=== PATIENT | female | born 1935 | race Caucasian/White ===

== ENCOUNTER → 2018-04-01 09:17 | Outpatient (CLI) | payer MEDICARE, OTHER, SELFPAY ==
[2018-04-01 09:43] LABS: RBC Urine None Seen (0-5/HPF)
[2018-04-01 10:25] LABS: Appearance Urine UA CLEAR; Bilirubin Urine UA NEGATIVE (NEGATIVE); Color Urine UA YELLOW; Glucose Urine UA NEGATIVE (Normal); Ketones Urine UA 1+ (NEGATIVE); Leukocyte Esterase Urine UA NEGATIVE (NEGATIVE); Nitrite Urine UA NEGATIVE (Negative); Occult Blood Urine UA NEGATIVE (Negative); Protein Urine UA NEGATIVE (Negative); Specific Gravity Urine UA 1.025 (1.000-1.035); Urobilinogen Urine UA 0.2 E.U./dL (0.2)
[2018-04-01 10:43] LABS: Hematocrit 41.6 % (36-46); Hemoglobin 13.7 g/dL (12.0-16.0); Mean Corpuscular HGB Conc 32.9 % (30-36); Mean Corpuscular Hemoglobin 29.9 PG (26-34); Platelet Count 266 X10^3/uL (150-400); Red Blood Cell Count 4.57 X10^6/uL (4.0-5.2); Red Cell Distribution Width 13.4 % (11.6-14.8); White Blood Cell Count 6.3 X10^3/uL (4.5-11.0)
[2018-04-01 11:23] LABS: Bacteria Urine Occasional (0-1); Culture Indicated Urine Cult Not Indicated; Mucus Urine 1+ (Negative); Squamous Epithelial Cell Urine 0-1 /HPF; WBC Urine 0-1/HPF (0-5/HPF)
[2018-04-01 11:48] LABS: Alanine Aminotransferase 25 IU/L (9-52); Albumin 4.2 g/dL (3.5-5.0); Albumin Globulin Ratio 1.4 (1.0-2.8); Alkaline Phosphatase 62 U/L (38-126); Aspartate Aminotransferase 20 IU/L (14-36); BUN Creatinine Ratio 24.3 (6-22); Bilirubin Total 0.6 mg/dL (0.2-1.3); Blood Urea Nitrogen 17 mg/dL (7-17); Calcium 9.6 mg/dL (8.4-10.2); Carbon Dioxide 27 mmol/L (22-32); Chloride 104 mmol/L (98-107); Cholesterol 208 mg/dL (140-199); Estimated Glomerular Filt Rate > 60.0 mL/min (>60); Glucose 92 mg/dL (80-110); HDL Cholesterol 53 mg/dL (40-60); HEMOLYSIS < 15 (0-50); LDL Cholesterol Calculated 141 mg/dL (<100); Potassium 4.6 mmol/L (3.4-5.1); Sodium 143 mmol/L (137-145); Total Protein 7.2 g/dL (6.3-8.2); Triglycerides 72 mg/dL (35-150)
[2018-04-01 11:51] LABS: Neutrophils Absolute Manual 4410 /uL (3000-5900); Total Cells Counted 100
[2018-04-01 11:52] LABS: Anisocytosis 1+; Poikilocytosis 1+
[2018-04-01 12:02] LABS: Vitamin D 25 Hydroxy (D3) 45.7 ng/mL (30.0-100.0)
[2018-04-01 12:17] LABS: Thyroid Stimulating Hormone 1.23 uIU/mL (0.47-4.68)
== END ==
PROVIDERS: PCP Family Medicine; Visit Provider Family Medicine
DX: Z13.0 Encounter for screening for diseases of the blood and blood-forming organs and certain disorders involving the immune mechanism (principal); Z13.220 Encounter for screening for lipoid disorders; Z13.29 Encounter for screening for other suspected endocrine disorder; Z13.820 Encounter for screening for osteoporosis; R30.0 Dysuria
CPT/HCPCS: 36415; 80053; 80061; 81001; 82306; 84443; 85025

== ENCOUNTER 2018-05-28 11:37 | Emergency (ER) | payer MEDICARE, OTHER, SELFPAY ==
[2018-05-28 11:38] VITALS: BP 130/72; PULSE 80; RESP 16; TEMP 36.7; O2SAT 98
--- NOTE | 2018-05-28 12:52 | ED.EXTPRO ---
HPI - Extremity Problem <REZA Deal-BC - Last Filed: 05/28/18 14:04> General Chief complaint: Extremity Problem,Nontraumatic Stated complaint: UNABLE TO WALK ON LEFT FOOT SWELLING VARICOSE VEIN Time Seen by Provider: 05/28/18 12:45 Source: patient and family Mode of arrival: wheelchair Limitations: no limitations History of Present Illness HPI Narrative: Patient is an 82-year-old female nonsmoker with history of varicose veins who presents from the walk-in clinic for chief complaint of left lower extremity swelling and pain. She was sent to the emergency department to help rule out a DVT. She states that swelling and pain started about 5 days ago. She states she know she has varicose veins on her bilateral feet. She took 1 Aleve yesterday which helped with the pain for 6 hr. She has not taken anything since. This is the only pain medication she has taken over the 5 days of pain she has had. She denies any numbness or tingling. She denies any injury to the area or fall. She denies any chest pain, shortness of breath, fever or any other acute complaints today. She states she just wants to rule out a blood clot. Related Data Home Medications Medication Instructions Recorded Confirmed No Known Home Medications 04/09/18 05/28/18 Allergies Allergy/AdvReac Type Severity Reaction Status Date / Time No Known Allergies Allergy Uncoded 04/09/18 13:36 Review of Systems <REZA Deal-BC - Last Filed: 05/28/18 14:04> Review of Systems GENERAL: Denies chills, fatigue, malaise, fever, sweats. HEENT: Denies sinus pain, ear pain, sore throat, difficulty swallowing, dizziness. RESPIRATORY: Denies dyspnea, cough, wheezing, hemoptysis, sputum. CARDIOVASCULAR: Denies chest pain, palpitations, orthopnea, edema, GASTROINTESTINAL: Denies nausea, vomiting, abdominal pain, diarrhea, constipation, melena. : Denies dysuria, frequency, incontinence, hematuria, urinary retention. MUSCULOSKELETAL: See HPI SKIN: Denies rash, skin lesions, or other NEUROLOGIC: Denies weakness, headache, numbness, change in speech, confusion, seizures, incoordination. PSYCHIATRIC: No concerning psychosocial issues. 12 point review of systems is negative except for those stated above Exam <MILTON Deal - Last Filed: 05/28/18 14:04> Narrative Exam Narrative: GENERAL: This is a well-nourished, well-developed patient, in no acute distress HEAD: Atraumatic. Normocephalic. No temporal or scalp tenderness. EYES: Pupils equal round and reactive. Extraocular motions intact. No scleral icterus. No injection or drainage. ENT: Nose without bleeding, purulent drainage or septal hematoma. Throat without erythema, tonsillar hypertrophy or exudate. Uvula midline. Airway patent. NECK: Trachea midline. No JVD or lymphadenopathy. Supple, nontender, no meningeal signs. CARDIOVASCULAR: Regular rate and rhythm without murmurs, gallops, or rubs. RESPIRATORY: No cough. No increased GASTROINTESTINAL: Abdomen soft, non-tender, nondistended. No hepato-splenomegaly, or palpable masses. No guarding. EXTREMITIES: Slight swelling noted left foot when compared to right. Positive pedal pulse left foot multiple varicose veins noted bilaterally. Left calf soft to palpation. Negative Homans test. BACK: Nontender without deformity or crepitance. No flank tenderness. NEURO: AOx3. SKIN: No rash or erythema. Initial Vital Signs Initial Vital Signs: Vital Signs Temperature 98.1 F 05/28/18 11:38 Pulse Rate 80 05/28/18 11:38 Respiratory Rate 16 05/28/18 11:38 Blood Pressure 130/72 05/28/18 11:38 Pulse Oximetry 98 05/28/18 11:38 <Uzma Ramos DO - Last Filed: 05/29/18 09:47> Initial Vital Signs Initial Vital Signs: Vital Signs Temperature 98.1 F 05/28/18 11:38 Pulse Rate 80 05/28/18 11:38 Respiratory Rate 16 05/28/18 11:38 Blood Pressure 130/72 05/28/18 11:38 Pulse Oximetry 98 05/28/18 11:38 Course <MILTON Deal - Last Filed: 05/28/18 14:04> Orders Ordered: ED Orders 05/28/18 12:51 US periph venous low extrem lt Stat Vital Signs - 8 hr 05/28/18 11:38 Temperature 98.1 F Pulse Rate 80 Respiratory Rate 16 Blood Pressure 130/72 Pulse Oximetry 98 <DO Roque Seo Last Filed: 05/29/18 09:47> Orders Ordered: ED Orders 05/28/18 12:51 US periph venous low extrem lt Stat Vital Signs - 8 hr 05/28/18 11:38 Temperature 98.1 F Pulse Rate 80 Respiratory Rate 16 Blood Pressure 130/72 Pulse Oximetry 98 MDM - Extremity (Nontraumatic) <MILTON Deal - Last Filed: 05/28/18 14:04> Imaging Data Venous US: Radiologist's impression: [place] [id number] Ultrasound Report Signed Patient: Khris Joseph#: [id number] : 8Acct:[id number] Age/Sex: 82 / FDate of Service: 05/28/18 Loc: ED Accession Number: [id number] Procedure: US periph venous low extrem lt Ordering Provider: Waleska Cole PROCEDURE: US PERIPH VENOUS LOW EXTREM LT INDICATIONS: Left ankle pain and swelling. TECHNIQUE: Real-time imaging, as well as color and pulse Doppler interrogation, were performed of the lower extremity deep veins from the inguinal ligament to the popliteal fossa. COMPARISON: None. FINDINGS: The deep veins are normally compressible, and free of intraluminal thrombus. Color and pulse Doppler demonstrate intraluminal flow. There is normal augmentation response to distal compression maneuver. IMPRESSION: No ultrasound evidence of deep venous thrombosis of the left lower extremity. Preliminary findings were discussed by the director of pulmonary unit with the referring provider REZA Cole at approximately 1340 hrs. on 05/28/18. Dictated by: Craig Lund M.D. on 05/28/2018 at 13:44 Approved by: Craig Lund M.D. on 05/28/2018 at 13:47 [facility] Narrative Medical decision making narrative: Patient is an 82-year-old female who presents with a chief complaint of left lower extremity swelling. She was sent from walk-in clinic for an ultrasound to rule out a blood clot. Her DVT ultrasound was negative. I discussed at length conservative measures including rest ice compression elevation as well as [id number]-[id number] pain medications as needed and able. I encouraged her to follow up with primary care provider. Discussed return precautions the emergency department including shortness of breath, chest pain concern of heart attack or stroke. Patient no questions or concerns upon discharge. Discharge Plan Departure Patient Disposition: Home Clinical Impression: Foot pain Discharge Date/Time: 05/28/18 14:14 Interventions: ED Discharge Assessment Last Done: 05/28/18 14:15 Instructions: How To Perform RICE (Rest, Ice, Compress, Elevate), DI for Foot Pain Activity Restrictions/Additional Instructions: Your ultrasound showed no blood clot in her left lower extremity please use [id number] medications as needed and able. Please use rest ice compression elevation as needed and able cleared please follow-up with her primary care provider. Please come back to the emergency department for any acute concerns such as chest pain, shortness of breath or concern of heart attack or stroke. Prescriptions: No Action No Known Home Medications RF: 0 Referrals: Palak Naik MD [Primary Care Provider] - <Uzma Ramos DO - Last Filed: 05/29/18 09:47> Cosign ED Attending Alicia Attestation: I was immediately available in the department for consultation. Documentation has been reviewed. I agree with assessment and plan.
--- NOTE | 2018-05-28 12:56 | ED_ITS ---
HPI - Extremity Problem <REZA Deal-BC - Last Filed: 05/28/18 14:04> General Chief complaint: Extremity Problem,Nontraumatic Stated complaint: UNABLE TO WALK ON LEFT FOOT SWELLING VARICOSE VEIN Time Seen by Provider: 05/28/18 12:45 Source: patient and family Mode of arrival: wheelchair Limitations: no limitations History of Present Illness HPI Narrative: Patient is an 82-year-old female nonsmoker with history of varicose veins who presents from the walk-in clinic for chief complaint of left lower extremity swelling and pain. She was sent to the emergency department to help rule out a DVT. She states that swelling and pain started about 5 days ago. She states she know she has varicose veins on her bilateral feet. She took 1 Aleve yesterday which helped with the pain for 6 hr. She has not taken anything since. This is the only pain medication she has taken over the 5 days of pain she has had. She denies any numbness or tingling. She denies any injury to the area or fall. She denies any chest pain, shortness of breath, fever or any other acute complaints today. She states she just wants to rule out a blood clot. Related Data Home Medications Medication Instructions Recorded Confirmed No Known Home Medications 04/09/18 05/28/18 Allergies Allergy/AdvReac Type Severity Reaction Status Date / Time No Known Allergies Allergy Uncoded 04/09/18 13:36 Review of Systems <REZA Deal-BC - Last Filed: 05/28/18 14:04> Review of Systems GENERAL: Denies chills, fatigue, malaise, fever, sweats. HEENT: Denies sinus pain, ear pain, sore throat, difficulty swallowing, dizziness. RESPIRATORY: Denies dyspnea, cough, wheezing, hemoptysis, sputum. CARDIOVASCULAR: Denies chest pain, palpitations, orthopnea, edema, GASTROINTESTINAL: Denies nausea, vomiting, abdominal pain, diarrhea, constipation, melena. : Denies dysuria, frequency, incontinence, hematuria, urinary retention. MUSCULOSKELETAL: See HPI SKIN: Denies rash, skin lesions, or other NEUROLOGIC: Denies weakness, headache, numbness, change in speech, confusion, seizures, incoordination. PSYCHIATRIC: No concerning psychosocial issues. 12 point review of systems is negative except for those stated above Exam <MILTON Deal - Last Filed: 05/28/18 14:04> Narrative Exam Narrative: GENERAL: This is a well-nourished, well-developed patient, in no acute distress HEAD: Atraumatic. Normocephalic. No temporal or scalp tenderness. EYES: Pupils equal round and reactive. Extraocular motions intact. No scleral icterus. No injection or drainage. ENT: Nose without bleeding, purulent drainage or septal hematoma. Throat without erythema, tonsillar hypertrophy or exudate. Uvula midline. Airway patent. NECK: Trachea midline. No JVD or lymphadenopathy. Supple, nontender, no meningeal signs. CARDIOVASCULAR: Regular rate and rhythm without murmurs, gallops, or rubs. RESPIRATORY: No cough. No increased GASTROINTESTINAL: Abdomen soft, non-tender, nondistended. No hepato-splenomegaly , or palpable masses. No guarding. EXTREMITIES: Slight swelling noted left foot when compared to right. Positive pedal pulse left foot multiple varicose veins noted bilaterally. Left calf soft to palpation. Negative Homans test. BACK: Nontender without deformity or crepitance. No flank tenderness. NEURO: AOx3. SKIN: No rash or erythema. Initial Vital Signs Initial Vital Signs: Vital Signs Temperature 98.1 F 05/28/18 11:38 Pulse Rate 80 05/28/18 11:38 Respiratory Rate 16 05/28/18 11:38 Blood Pressure 130/72 05/28/18 11:38 Pulse Oximetry 98 05/28/18 11:38 <Uzma Ramos DO - Last Filed: 05/29/18 09:47> Initial Vital Signs Initial Vital Signs: Vital Signs Temperature 98.1 F 05/28/18 11:38 Pulse Rate 80 05/28/18 11:38 Respiratory Rate 16 05/28/18 11:38 Blood Pressure 130/72 05/28/18 11:38 Pulse Oximetry 98 05/28/18 11:38 Course <MILTON Deal - Last Filed: 05/28/18 14:04> Orders Ordered: ED Orders 05/28/18 12:51 US periph venous low extrem lt Stat Vital Signs - 8 hr 05/28/18 11:38 Temperature 98.1 F Pulse Rate 80 Respiratory Rate 16 Blood Pressure 130/72 Pulse Oximetry 98 <DO Roque Seo Last Filed: 05/29/18 09:47> Orders Ordered: ED Orders 05/28/18 12:51 US periph venous low extrem lt Stat Vital Signs - 8 hr 05/28/18 11:38 Temperature 98.1 F Pulse Rate 80 Respiratory Rate 16 Blood Pressure 130/72 Pulse Oximetry 98 MDM - Extremity (Nontraumatic) <MILTON Deal - Last Filed: 05/28/18 14:04> Imaging Data Venous US: Radiologist's impression: [place] [id number] Ultrasound Report Signed Patient: Khris Joseph#: [id number] : 8Acct:[id number] Age/Sex: 82 / FDate of Service: 05/28/18 Loc: ED Accession Number: [id number] Procedure: US periph venous low extrem lt Ordering Provider: Waleska Cole PROCEDURE: US PERIPH VENOUS LOW EXTREM LT INDICATIONS: Left ankle pain and swelling. TECHNIQUE: Real-time imaging, as well as color and pulse Doppler interrogation, were performed of the lower extremity deep veins from the inguinal ligament to the popliteal fossa. COMPARISON: None. FINDINGS: The deep veins are normally compressible, and free of intraluminal thrombus. Color and pulse Doppler demonstrate intraluminal flow. There is normal augmentation response to distal compression maneuver. IMPRESSION: No ultrasound evidence of deep venous thrombosis of the left lower extremity. Preliminary findings were discussed by the staff nurse icu resource team with the referring provider REZA Cole at approximately 1340 hrs. on 05/28/18. Dictated by: Craig Lund M.D. on 05/28/2018 at 13:44 Approved by: Craig Lund M.D. on 05/28/2018 at 13:47 [facility] Narrative Medical decision making narrative: Patient is an 82-year-old female who presents with a chief complaint of left lower extremity swelling. She was sent from walk-in clinic for an ultrasound to rule out a blood clot. Her DVT ultrasound was negative. I discussed at length conservative measures including rest ice compression elevation as well as nbtu-kwq-epebosa pain medications as needed and able. I encouraged her to follow up with primary care provider. Discussed return precautions the emergency department including shortness of breath, chest pain concern of heart attack or stroke. Patient no questions or concerns upon discharge. Discharge Plan Departure Patient Disposition: Home Clinical Impression: Foot pain Discharge Date/Time: 05/28/18 14:14 Interventions: ED Discharge Assessment Last Done: 05/28/18 14:15 Instructions: How To Perform RICE (Rest, Ice, Compress, Elevate), DI for Foot Pain Activity Restrictions/Additional Instructions: Your ultrasound showed no blood clot in her left lower extremity please use over -the-counter medications as needed and able. Please use rest ice compression elevation as needed and able cleared please follow-up with her primary care provider. Please come back to the emergency department for any acute concerns such as chest pain, shortness of breath or concern of heart attack or stroke. Prescriptions: No Action No Known Home Medications RF: 0 Referrals: Palak Naik MD [Primary Care Provider] - <Uzma Ramos DO - Last Filed: 05/29/18 09:47> Cosign ED Attending Alicia Attestation: I was immediately available in the department for consultation. Documentation has been reviewed. I agree with assessment and plan.
[2018-05-28 14:15] VITALS: BP 130/69; PULSE 69; RESP 18; O2SAT 97
== END 2018-05-28 14:14 | disposition home or self-care (01) ==
PROVIDERS: Emergency Provider Nurse Practitioner Family; PCP Family Medicine
DX: M79.605 Pain in left leg (principal)
CPT/HCPCS: 93971; 99282; 99284

== ENCOUNTER → 2018-08-28 10:17 | Outpatient (CLI) | payer MEDICARE, OTHER, SELFPAY | PROVIDERS: PCP Family Medicine; Visit Provider Nurse Practitioner | DX: N90.89 Other specified noninflammatory disorders of vulva and perineum (principal) | CPT/HCPCS: 87070; 87147; 87186; 87205 ==

== ENCOUNTER → 2018-10-23 13:50 | Outpatient (CLI) | payer MEDICARE, OTHER, SELFPAY ==
--- NOTE | 2018-10-23 | DI.MG.S_ITS ---
BILATERAL DIGITAL SCREENING MAMMOGRAM 3D/2D WITH CAD: 10/23/2018 CLINICAL: Routine screening. Comparison is made to exams dated: 08/21/2017 mammogram - [facility], 01/19/2016 mammogram, and 12/31/2014 mammogram - [facility]. There are scattered fibroglandular elements in both breasts. Current study was also evaluated with a Computer Aided Detection (CAD) system. There is a high density asymmetry in the left breast middle depth superior region seen on the mediolateral oblique view only. No other significant masses, calcifications, or other findings are seen in either breast. IMPRESSION: INCOMPLETE: NEEDS ADDITIONAL IMAGING EVALUATION The high density asymmetry in the left breast is indeterminate. Additional views with possible ultrasound are recommended. This exam was interpreted at Station ID: [id number]. NOTE: For mammograms, a report in lay terms will be sent to the patient. Approximately 15% of breast malignancies will not be visualized mammographically. In the management of a palpable breast mass, a negative mammogram must not discourage biopsy of a clinically suspicious lesion. Electronically Signed By: Yue fong/king:10/23/2018 15:18:37 letter sent: Additional Imaging Needed ACR BI-RADS Category 0: Incomplete 3340F
== END ==
PROVIDERS: PCP Family Medicine; Visit Provider Family Medicine
DX: Z12.31 Encounter for screening mammogram for malignant neoplasm of breast (principal)
CPT/HCPCS: 77063; 77067

== ENCOUNTER → 2018-11-12 13:46 | Outpatient (CLI) | payer MEDICARE, OTHER, SELFPAY ==
--- NOTE | 2018-11-12 | DI.MG.S_ITS ---
UNILATERAL LEFT DIGITAL DIAGNOSTIC MAMMOGRAM 3D/2D WITH ADDITIONAL VIEWS: 11/12/2018 CLINICAL: Additional evaluation requested from prior study. Comparison is made to exams dated: 10/23/2018 mammogram, 08/21/2017 mammogram - [facility], and 01/19/2016 mammogram - [facility]. There are scattered fibroglandular elements in left breast. The benign high density asymmetry in the left breast middle depth superior region seen on the mediolateral oblique view only is no longer seen. This is consistent with summation artifact. No other significant masses or calcifications are seen in the breast. IMPRESSION: The previously described asymmetry disperses with additional views and is consistent with summation artifact. There is no mammographic evidence of malignancy. A 1 year screening mammogram is recommended. This exam was interpreted at Station ID: [id number]. NOTE: For mammograms, a report in lay terms will be sent to the patient. Approximately 15% of breast malignancies will not be visualized mammographically. In the management of a palpable breast mass, a negative mammogram must not discourage biopsy of a clinically suspicious lesion. Electronically Signed By: Curly Barrios M.D. at/:11/12/2018 14:58:47 letter sent: Normal Exam ACR BI-RADS Category 2: Benign Finding(s) 3342F
== END ==
PROVIDERS: PCP Family Medicine; Visit Provider Family Medicine
DX: R92.8 Other abnormal and inconclusive findings on diagnostic imaging of breast (principal)
CPT/HCPCS: 77065; G0279

== ENCOUNTER 2019-03-16 14:23 | Inpatient (IN) | payer MEDICARE, OTHER, SELFPAY ==
[2019-03-16] VITALS (19 sets, daily range): BP systolic 90–136; BP diastolic 48–88; PULSE 104–135; RESP 15–27; TEMP 36.6–37.4; O2SAT 92–99; BMI 18.6
--- NOTE | 2019-03-16 14:48 | DI.RAD.S_ITS ---
PROCEDURE: XR CHEST 1V INDICATIONS: soa TECHNIQUE: One view of the chest was acquired. COMPARISON: None. FINDINGS: Surgical changes and devices: None. Lungs and pleura: Blunting of left costophrenic angle is evident. There is hazy increased attenuation at the right lung base. No definite pneumothorax is appreciated. Interstitial prominence is identified throughout the lungs. There is no lobar or large area of pulmonary consolidation. Mediastinum: Mediastinal contours appear normal. Heart size is enlarged. There is aortic atherosclerosis. Bones and chest wall: No suspicious bony lesions. Overlying soft tissues appear unremarkable. IMPRESSION: 1. Cardiomegaly with moderate associated vascular congestion is suggestive of mild pulmonary edema. 2. Small bilateral pleural effusions and associated atelectasis. Please correlate clinically to exclude the possibility of a superimposed pneumonia. Dictated by: Adolfo Chapa M.D. on 03/16/2019 at 14:10 Approved by: Adolfo Chapa M.D. on 03/16/2019 at 14:11
[2019-03-16 15:13] LABS: Add Manual Diff / Slide Review NO; Basophils Absolute Auto 100 /uL (0-100); Basophils Percent Auto 0.7 % (0-2); Eosinophils Absolute Auto 200 /uL (0-450); Eosinophils Percent Auto 1.4 % (2-4); Hematocrit 41.3 % (36-46); Lymphocytes Absolute Auto 1700 /uL (1100-4500); Lymphocytes Percent Auto 14.8 % (25-40); Mean Corpuscular Hemoglobin 30.8 PG (26-34); Mean Corpuscular Volume 90.6 fL (80-100); Monocytes Absolute Auto 500 /uL (0-900); Monocytes Percent Auto 4.4 % (3-14); Neutrophils Absolute Auto 9000 /uL (1500-7000); Neutrophils Percent Auto 78.7 % (50-75); Platelet Count 293 X10^3/uL (150-400); Red Blood Cell Count 4.56 X10^6/uL (4.0-5.2); Red Cell Distribution Width 14.1 % (11.6-14.8); White Blood Cell Count 11.5 X10^3/uL (4.5-11.0)
[2019-03-16 15:24] LABS: Prothrombin Time 11.8 SECONDS (10.1-12.7)
--- NOTE | 2019-03-16 15:27 | ED.CHESTPAIN ---
HPI - Chest Pain General Chief Complaint: Chest Pain Stated Complaint: SOB , tightness in chest Time Seen by Provider: 03/16/19 14:38 Source: patient and family Mode of arrival: Ambulatory Limitations: no limitations History of Present Illness HPI narrative: 83-year-old female nonsmoker with benign medical history presents with a chief complaint of a few weeks of gradually worsening generalized fatigue and palpitations. She denies any chest pain and has had no fever or chills. She denies runny nose, sore throat or cough. She denies any history of atrial fibrillation. She denies any significant caffeine, nicotine or alcohol intake. MD complaint: chest pain Onset (ago): week(s) Duration: constant Pain radiation: none Exacerbating factors: nothing Associated symptoms: palpitations Treatments prior to arrival chest pain: none Related Data Previous Rx's Medication Instructions Recorded hydroxyzine HCl 10 mg tablet 10 mg PO BEDTIME PRN #10 tab 08/28/18 Allergies Allergy/AdvReac Type Severity Reaction Status Date / Time No Known Drug Allergies Allergy Verified 03/16/19 15:02 Review of Systems Constitutional Constitutional: Denies chills, Denies fatigue, Denies fever(s), Denies frequent falls, Denies lethargy and Denies weakness Eyes Eyes: Denies change in vision, Denies eye discharge, Denies irritation and Denies loss of vision ENT Ears, Nose, Mouth, and Throat: Denies change in voice, Denies dizziness, Denies neck pain, Denies sore throat and Denies throat swelling Cardiovascular Cardiovascular: Denies chest pain, Reports irregular heart rhythm, Reports lightheadedness, Reports palpitations, Reports dyspnea, Reports dyspnea on exertion and Denies orthopnea Respiratory Respiratory: Denies cough, Reports dyspnea, Reports dyspnea on exertion and Denies wheezing Gastrointestinal Gastrointestinal: Denies abdominal pain, Denies change in bowel habits, Denies diarrhea, Denies nausea and Denies vomiting Genitourinary Genitourinary: Denies hematuria, Denies flank pain, Denies urinary incontinence and Denies urinary urgency Musculoskeletal Musculoskeletal: Denies back pain, Denies muscle weakness, Denies neck pain, Denies numbness and Denies tingling Integumentary/Breasts Skin/Breast: Denies pruritus, Denies erythema, Denies rash and Denies wounds Neurologic Neurologic: Denies behavioral changes, Denies confusion, Denies dizziness, Denies frequent falls, Denies loss of vision, Denies numbness, Denies tingling and Denies weakness Psychiatric Psychiatric: Denies anxiety, Denies behavioral changes, Denies confusion, Denies depression, Denies homicidal ideation and Denies suicidal ideation Endocrine Endocrine: Denies fatigue, Denies flushing and Reports palpitations Hematologic/Lymphatic Hematologic/Lymphatic: Denies easy bruising Allergic/Immunologic Allergic/Immunologic: Denies urticaria, Denies throat swelling and Denies wheezing Patient History Medical History Ankle pain (Chronic) Colon polyps (Resolved) Diverticular disease (Chronic) Left retinal detachment (Resolved 1996) Osteopenia (Chronic 2004) Right retinal detachment (Resolved 2014) Shoulder pain (Chronic 2016) Urinary incontinence (Chronic) Surgical History Anesthesia (Resolved) History of colonoscopy with polypectomy (Resolved 07/05/17) History of colonoscopy with polypectomy (Resolved ) History of non-cataract eye surgery (Resolved 1996) History of non-cataract eye surgery (Resolved 2014) Status post rotator cuff repair (Resolved 2001) Family History Mother Cancer Multiple myeloma Father Silicosis Social History Smoking Status: Never smoker Substance Use Type: does not use Exam Narrative Exam Narrative: GENERAL: [] 83 year old patient appears younger than stated age. Well-nourished, well-developed patient, in mild distress. HEAD: Atraumatic. Normocephalic. EYES: Pupils equal round and reactive. Extraocular motions intact. No scleral icterus. No injection or drainage. ENT: Nose without bleeding, purulent drainage. Throat without erythema, tonsillar hypertrophy or exudate. Airway patent. NECK: Trachea midline. Non tender CARDIOVASCULAR: Tachycardic and irregular rhythm without murmurs, gallops, or rubs. RESPIRATORY: Clear to auscultation. Breath sounds equal bilaterally. No wheezes, rales, or rhonchi. GASTROINTESTINAL: Abdomen soft, non-tender, nondistended. EXTREMITIES: No edema or joint tenderness. BACK: Nontender without deformity or crepitance. No flank tenderness. NEURO: AOx3. SKIN: No rash or erythema of visible areas Initial Vital Signs Initial Vital Signs: Vital Signs Temperature 97.9 F 03/16/19 14:47 Pulse Rate 135 H 03/16/19 14:47 Respiratory Rate 18 03/16/19 14:47 Blood Pressure 124/84 03/16/19 14:47 Pulse Oximetry 98 03/16/19 14:47 Course Orders Ordered: ED Orders 03/16/19 14:32 EKG-12 Lead Stat 03/16/19 14:45 Complete Blood Count AUTO DIFF Stat Comprehensive Metabolic Panel Stat Prothrombin Time INR Stat T4 Total Thyroxine Stat Thyroid Stimulating Hormone Stat Troponin & CK Cardiac Panel Stat 03/16/19 14:48 Chest [XR chest 1V] Stat DILTIAZEM (Diltiazem 125 Mg/125 Ml-D5w) 125 mg in 125 mls @ 5 mls/hr IV TITRATE JESICA; Protocol Discontinued Medications Diltiazem HCl (Cardizem) 10 mg IV NOW ONE Stop: 03/16/19 15:01 Last Admin: 03/16/19 15:29 Dose: 10 mg Documented by: MIRZA Vital Signs Vital signs: Vital Signs - 8 hr 03/16/19 14:47 03/16/19 15:29 03/16/19 15:41 Temperature 97.9 F Pulse Rate 135 H 131 H 109 H Respiratory Rate 18 15 Blood Pressure 124/84 101/78 Blood Pressure [Right Arm] 91/65 Pulse Oximetry 98 94 03/16/19 15:45 Temperature Pulse Rate 112 H Respiratory Rate 27 H Blood Pressure Blood Pressure [Right Arm] 102/78 Pulse Oximetry 96 MDM - Chest Pain Lab Data Result diagrams: 03/16/19 14:45 03/16/19 14:45 Labs: Lab Results 03/16/19 03/16/19 03/16/19 Range/Units 14:45 14:45 14:45 WBC 11.5 H (4.5-11.0) X10^3/uL RBC 4.56 (4.0-5.2) X10^6/uL Hgb 14.0 (12.0-16.0) g/dL Hct 41.3 (36-46) % MCV 90.6 (80-100) fL MCH 30.8 (26-34) PG MCHC 34.0 (30-36) % RDW 14.1 (11.6-14.8) % Plt Count 293 (150-400) X10^3/uL Neut % (Auto) 78.7 H (50-75) % Lymph % (Auto) 14.8 L (25-40) % [place] % (Auto) 4.4 (3-14) % Eos % (Auto) 1.4 L (2-4) % Baso % (Auto) 0.7 (0-2) % Neut # (Auto) 9000 H (5282-5393) /uL Lymph # (Auto) 1700 (1522-2041) /uL [place] # (Auto) 500 (0-900) /uL Eos # (Auto) 200 (0-450) /uL Baso # (Auto) 100 (0-100) /uL PT 11.8 (10.1-12.7) SECONDS INR 1.0 (0.9-1.3) Sodium 140 (137-145) mmol/L Potassium 4.5 (3.4-5.1) mmol/L Chloride 106 (98-107) mmol/L Carbon Dioxide 23 (22-32) mmol/L BUN 21 H (7-17) mg/dL Creatinine 0.70 (0.52-1.04) mg/dL Estimated GFR > 60.0 (>60) mL/min BUN/Creatinine Ratio 30.0 H (6-22) Glucose 106 (80-110) mg/dL Calcium 9.8 (8.4-10.2) mg/dL Total Bilirubin 0.6 (0.2-1.3) mg/dL AST 23 (14-36) IU/L ALT 20 (<35) IU/L Alkaline Phosphatase 81 (38-126) U/L Total Creatine Kinase 44 (30-135) U/L CK-MB (CK-2) TNP CK-MB (CK-2) Rel Index TNP Troponin I < 0.012 (0.01-0.034) ng/mL Total Protein 7.3 (6.3-8.2) g/dL Albumin 4.4 (3.5-5.0) g/dL Globulin 2.9 (1.7-4.1) g/dL Albumin/Globulin Ratio 1.5 (1.0-2.8) Imaging Data Chest x-ray: Radiologist's impression: [address] [address] XRay Report Signed Patient: Anna Joseph#: [id number] : 8Acct:[id number] Age/Sex: 83 / FDate of Service: 03/16/19 Loc: ED Accession Number: [id number] Procedure: XR chest 1V Ordering Provider: Arthur Vasquez D.O. PROCEDURE: XR CHEST 1V INDICATIONS: soa TECHNIQUE: One view of the chest was acquired. COMPARISON: None. FINDINGS: Surgical changes and devices: None. Lungs and pleura: Blunting of left costophrenic angle is evident. There is hazy increased attenuation at the right lung base. No definite pneumothorax is appreciated. Interstitial prominence is identified throughout the lungs. There is no lobar or large area of pulmonary consolidation. Mediastinum: Mediastinal contours appear normal. Heart size is enlarged. There is aortic atherosclerosis. Bones and chest wall: No suspicious bony lesions. Overlying soft tissues appear unremarkable. IMPRESSION: 1. Cardiomegaly with moderate associated vascular congestion is suggestive of mild pulmonary edema. 2. Small bilateral pleural effusions and associated atelectasis. Please correlate clinically to exclude the possibility of a superimposed pneumonia. Dictated by: Adolfo Chapa M.D. on 03/16/2019 at 14:10 Approved by: Adolfo Chapa M.D. on 03/16/2019 at 14:11 ECG Data Attestation: I personally reviewed and interpreted this ECG as follows: Prior ECG tracings: not available for review Interpretation: Rapid AFib in 130s to 140s without signs of ischemia such as ST segmental elevation or depression. No other ectopy MDM Narrative Medical decision making narrative: 83-year-old female with 1-2 weeks of increasing shortness of breath, fatigue and palpitations denies chest pain or any history of AFib. Found to be in a rapid AFib in the 140s but not a candidate for cardioversion given lack of anticoagulation, duration of symptoms greater than 48 hours. Cardizem push results and decrease (although short-term) to the low 100s, drip ordered and patient ordered for ICU Discharge Plan Departure Prescriptions: No Action hydroxyzine HCl 10 mg tablet 10 mg PO BEDTIME PRN (Reason: itching) Qty: 10 RF: 1
[2019-03-16 15:28] LABS: Alanine Aminotransferase 20 IU/L (<35); Albumin 4.4 g/dL (3.5-5.0); Albumin Globulin Ratio 1.5 (1.0-2.8); Alkaline Phosphatase 81 U/L (38-126); Aspartate Aminotransferase 23 IU/L (14-36); Bilirubin Total 0.6 mg/dL (0.2-1.3); Blood Urea Nitrogen 21 mg/dL (7-17); Calcium 9.8 mg/dL (8.4-10.2); Carbon Dioxide 23 mmol/L (22-32); Chloride 106 mmol/L (98-107); Creatine Kinase 44 U/L (30-135); Estimated Glomerular Filt Rate > 60.0 mL/min (>60); Globulin 2.9 g/dL (1.7-4.1); Glucose 106 mg/dL (80-110); HEMOLYSIS < 15 (0-50); Potassium 4.5 mmol/L (3.4-5.1); Sodium 140 mmol/L (137-145); Total Protein 7.3 g/dL (6.3-8.2)
[2019-03-16] MEDS: dilTIAZem 5 MG/ML SDV 10 MG IV (15:29)
[2019-03-16 15:40] LABS: Troponin I < 0.012 ng/mL (0.01-0.034)
--- NOTE | 2019-03-16 16:14 | ED.CHESTPAIN ---
HPI - Chest Pain General Chief Complaint: Chest Pain Stated Complaint: SOB , tightness in chest Time Seen by Provider: 03/16/19 14:38 Source: patient and family Mode of arrival: Ambulatory Limitations: no limitations History of Present Illness HPI narrative: 83-year-old female nonsmoker with benign medical history presents with her son in the chief complaint of 2-3 weeks of increasing fatigue and exertional dyspnea, palpitations and a sensation of a racing heart. She has never had this before and elected to come in today because she continues to feel worse. Patient denies any significant caffeine, nicotine or alcohol use. She denies any chest pain or profound shortness of breath while at rest. She does have some occasional dizziness. complaint: other Onset (ago): week(s) Duration: constant Onset: during exertion Exacerbating factors: nothing Associated symptoms: palpitations Related Data On Oral Contraceptives: No Previous Rx's Medication Instructions Recorded hydroxyzine HCl 10 mg tablet 10 mg PO BEDTIME PRN #10 tab 08/28/18 Allergies Allergy/AdvReac Type Severity Reaction Status Date / Time No Known Drug Allergies Allergy Verified 03/16/19 15:02 Review of Systems Constitutional Constitutional: Denies frequent falls and Denies weakness Eyes Eyes: Denies loss of vision ENT Ears, Nose, Mouth, and Throat: Denies dizziness Musculoskeletal Musculoskeletal: Denies numbness and Denies tingling Neurologic Neurologic: Denies behavioral changes, Denies confusion, Denies dizziness, Denies frequent falls, Denies loss of vision, Denies numbness, Denies tingling and Denies weakness Psychiatric Psychiatric: Denies behavioral changes and Denies confusion Patient History Medical History Diverticular disease (Chronic) Left retinal detachment (Resolved 1996) Osteopenia (Chronic 2004) Right retinal detachment (Resolved 2014) Shoulder pain (Chronic 2016) Urinary incontinence (Chronic) Surgical History Anesthesia (Resolved) History of colonoscopy with polypectomy (Resolved 07/05/17) History of colonoscopy with polypectomy (Resolved ~2012) History of non-cataract eye surgery (Resolved 1996) History of non-cataract eye surgery (Resolved 2014) Status post rotator cuff repair (Resolved 2001) Family History Mother Cancer Multiple myeloma Father Silicosis Social History Smoking Status: Never smoker Substance Use Type: does not use Exam Narrative Exam Narrative: GENERAL: [83] year old patient appears stated age. Well-nourished, well-developed patient, in mild distress. HEAD: Atraumatic. Normocephalic. EYES: Pupils equal round and reactive. Extraocular motions intact. No scleral icterus. No injection or drainage. ENT: Nose without bleeding, purulent drainage. Throat without erythema, tonsillar hypertrophy or exudate. Airway patent. NECK: Trachea midline. Non tender CARDIOVASCULAR: Tachycardic and irregular rhythm without murmurs, gallops, or rubs. RESPIRATORY: Clear to auscultation. Breath sounds equal bilaterally. No wheezes, rales, or rhonchi. GASTROINTESTINAL: Abdomen soft, non-tender, nondistended. EXTREMITIES: No edema or joint tenderness. BACK: Nontender without deformity or crepitance. No flank tenderness. NEURO: AOx3. SKIN: No rash or erythema of visible areas Initial Vital Signs Initial Vital Signs: Vital Signs Temperature 97.9 F 03/16/19 14:47 Pulse Rate 135 H 03/16/19 14:47 Respiratory Rate 18 03/16/19 14:47 Blood Pressure 124/84 03/16/19 14:47 Pulse Oximetry 98 03/16/19 14:47 Course Orders Ordered: ED Orders 03/16/19 14:32 EKG-12 Lead Stat 03/16/19 14:45 Complete Blood Count AUTO DIFF Stat Comprehensive Metabolic Panel Stat Prothrombin Time INR Stat T4 Total Thyroxine Stat Thyroid Stimulating Hormone Stat Troponin & CK Cardiac Panel Stat 03/16/19 14:48 Chest [XR chest 1V] Stat DILTIAZEM (Diltiazem 125 Mg/125 Ml-D5w) 125 mg in 125 mls @ 5 mls/hr IV TITRATE JESICA; Protocol Last Titration: 03/16/19 18:31 Dose: 5 mg/hr, 5 mls/hr Documented by: TRACIESENJarocho Admin: 03/16/19 16:23 Dose: 5 mg/hr, 5 mls/hr Documented by: TRACIESENJarocho Discontinued Medications Diltiazem HCl (Cardizem) 10 mg IV NOW ONE Stop: 03/16/19 15:01 Last Admin: 03/16/19 15:29 Dose: 10 mg Documented by: MEISENB Consultations Consultation #1: Dr. Thakur happy to accept Vital Signs Vital signs: Vital Signs - 8 hr 03/16/19 14:47 03/16/19 15:29 03/16/19 15:30 Temperature 97.9 F Pulse Rate 135 H 131 H 128 H Respiratory Rate 18 19 Blood Pressure 124/84 101/78 Blood Pressure [Right Arm] 101/78 Pulse Oximetry 98 96 03/16/19 15:41 03/16/19 15:45 03/16/19 16:00 Temperature Pulse Rate 109 H 117 H 120 H Respiratory Rate 15 19 21 Blood Pressure Blood Pressure [Right Arm] 91/65 102/78 102/69 Pulse Oximetry 94 95 95 MDM - Chest Pain Lab Data Result diagrams: 03/16/19 14:45 03/16/19 14:45 Labs: Lab Results 03/16/19 03/16/19 03/16/19 Range/Units 14:45 14:45 14:45 WBC 11.5 H (4.5-11.0) X10^3/uL RBC 4.56 (4.0-5.2) X10^6/uL Hgb 14.0 (12.0-16.0) g/dL Hct 41.3 (36-46) % MCV 90.6 (80-100) fL MCH 30.8 (26-34) PG MCHC 34.0 (30-36) % RDW 14.1 (11.6-14.8) % Plt Count 293 (150-400) X10^3/uL Neut % (Auto) 78.7 H (50-75) % Lymph % (Auto) 14.8 L (25-40) % [place] % (Auto) 4.4 (3-14) % Eos % (Auto) 1.4 L (2-4) % Baso % (Auto) 0.7 (0-2) % Neut # (Auto) 9000 H (6434-0916) /uL Lymph # (Auto) 1700 (5011-6591) /uL [place] # (Auto) 500 (0-900) /uL Eos # (Auto) 200 (0-450) /uL Baso # (Auto) 100 (0-100) /uL PT 11.8 (10.1-12.7) SECONDS INR 1.0 (0.9-1.3) Sodium 140 (137-145) mmol/L Potassium 4.5 (3.4-5.1) mmol/L Chloride 106 (98-107) mmol/L Carbon Dioxide 23 (22-32) mmol/L BUN 21 H (7-17) mg/dL Creatinine 0.70 (0.52-1.04) mg/dL Estimated GFR > 60.0 (>60) mL/min BUN/Creatinine Ratio 30.0 H (6-22) Glucose 106 (80-110) mg/dL Calcium 9.8 (8.4-10.2) mg/dL Total Bilirubin 0.6 (0.2-1.3) mg/dL AST 23 (14-36) IU/L ALT 20 (<35) IU/L Alkaline Phosphatase 81 (38-126) U/L Total Creatine Kinase 44 (30-135) U/L CK-MB (CK-2) TNP CK-MB (CK-2) Rel Index TNP Troponin I < 0.012 (0.01-0.034) ng/mL Total Protein 7.3 (6.3-8.2) g/dL Albumin 4.4 (3.5-5.0) g/dL Globulin 2.9 (1.7-4.1) g/dL Albumin/Globulin Ratio 1.5 (1.0-2.8) TSH (0.47-4.68) uIU/mL Thyroxine (T4) (5.5-11.0) ug/dL 03/16/ Range/Units 14:45 WBC (4.5-11.0) X10^3/uL RBC (4.0-5.2) X10^6/uL Hgb (12.0-16.0) g/dL Hct (36-46) % MCV (80-100) fL MCH (26-34) PG MCHC (30-36) % RDW (11.6-14.8) % Plt Count (150-400) X10^3/uL Neut % (Auto) (50-75) % Lymph % (Auto) (25-40) % [place] % (Auto) (3-14) % Eos % (Auto) (2-4) % Baso % (Auto) (0-2) % Neut # (Auto) (1996-7949) /uL Lymph # (Auto) (0309-9004) /uL [place] # (Auto) (0-900) /uL Eos # (Auto) (0-450) /uL Baso # (Auto) (0-100) /uL PT (10.1-12.7) SECONDS INR (0.9-1.3) Sodium (137-145) mmol/L Potassium (3.4-5.1) mmol/L Chloride (98-107) mmol/L Carbon Dioxide (22-32) mmol/L BUN (7-17) mg/dL Creatinine (0.52-1.04) mg/dL Estimated GFR (>60) mL/min BUN/Creatinine Ratio (6-22) Glucose (80-110) mg/dL Calcium (8.4-10.2) mg/dL Total Bilirubin (0.2-1.3) mg/dL AST (14-36) IU/L ALT (<35) IU/L Alkaline Phosphatase (38-126) U/L Total Creatine Kinase (30-135) U/L CK-MB (CK-2) CK-MB (CK-2) Rel Index Troponin I (0.01-0.034) ng/mL Total Protein (6.3-8.2) g/dL Albumin (3.5-5.0) g/dL Globulin (1.7-4.1) g/dL Albumin/Globulin Ratio (1.0-2.8) TSH 2.12 (0.47-4.68) uIU/mL Thyroxine (T4) 9.04 (5.5-11.0) ug/dL ECG Data Interpretation: Rapid AFib in the 140s without evidence ischemia MDM Narrative Medical decision making narrative: Newly discovered rapid AFib in the absence of ischemic findings or extreme for complaints to suggest ischemia. Patient outside of any window to safely cardiovert. Patient responded to Cardizem and will therefore be put on a drip in the ICU. Critical Care Time Critical Care Time Critical Care Time: Yes Total Critical Care Time: 30 Attestation: The high probability of a clinically significant, sudden or life threatening deterioration of the [CV] system(s) required my full and direct attention, intervention and personal management. The aggregate critical care time was [30] minutes. This time is in addition to time spent performing reported procedures but includes the following: [x] Data Review and interpretation [x] Patient assessment and monitoring of vital signs [x] Documentation [x] Medication orders and management Discharge Plan Departure Patient Disposition: Admitted As Inpatient Clinical Impression: Atrial fibrillation with rapid ventricular response Admit Date/Time: 03/16/19 16:27 Admit Provider: Collins Thakur
[2019-03-16] MEDS: DILTIAZEM 125 MG/125 ML PIGGYBACK IV (16:23)
[2019-03-16 16:34] LABS: T4 Total Thyroxine 9.04 ug/dL (5.5-11.0)
[2019-03-16 16:47] LABS: Thyroid Stimulating Hormone 2.12 uIU/mL (0.47-4.68)
--- NOTE | 2019-03-16 19:11 | PM.HP.1 ---
History of Present Illness History of Present Illness Date Patient Seen: 03/16/19 Time Patient Seen: 19:11 Chief complaint: SOB , tightness in chest Narrative: Remarkably healthy 83-year-old female on no prescription medication who presented to the [facility] Emergency Department on day of admission with up to 2 weeks of symptoms of dyspnea dyspnea upon exertion pounding heart rate even in the middle of the night just feeling weak tired and puny Denies any other specific symptoms. Maybe had some pressure sensation along the anterior chest with the palpitation she was feeling. No cough certainly no hemoptysis no cold or flu symptoms no fever chills no nausea vomiting no symptoms in her neck back shoulders arms In the ER she was evaluated found to have new onset atrial fibrillation with rapid ventricular response. She slowed some with a single bolus of IV diltiazem and was admitted to the ICU for further evaluation and treatment Patient History Medical History Diverticular disease (Chronic) Left retinal detachment (Resolved 1996) Osteopenia (Chronic 2004) Right retinal detachment (Resolved 2014) Shoulder pain (Chronic 2016) Urinary incontinence (Chronic) Surgical History Anesthesia (Resolved) History of colonoscopy with polypectomy (Resolved 07/05/17) History of colonoscopy with polypectomy (Resolved ~2012) History of non-cataract eye surgery (Resolved 1996) History of non-cataract eye surgery (Resolved 2014) Status post rotator cuff repair (Resolved 2001) Family & Social History Family History Mother Cancer Multiple myeloma Father Silicosis Tobacco & Substance use: Smoking Status Never smoker Substance Use Type does not use Meds Home Medications and Allergies Allergies Allergy/AdvReac Type Severity Reaction Status Date / Time No Known Drug Allergies Allergy Verified 03/16/19 15:02 Review of Systems Constitutional Constitutional: Denies excessive sweating, Denies fever(s), Denies headache(s), Denies weakness, Denies weight gain and Denies weight loss Eyes Eyes: Denies change in vision, Denies itchy eyes, Denies loss of vision and Denies other visual disturbances ENT Ears, Nose, Mouth, and Throat: No change in voice, No difficulty swallowing, No dizziness, No ear pain, No headache(s), No hoarseness, No lip swelling, No neck pain, No sore throat, No throat swelling and No tongue swelling Cardiovascular Cardiovascular: Denies fainting, Reports fast heart rate, Reports irregular heart rhythm, Reports rapid, pounding, or irregular heartbeat, Reports shortness of breath, Reports shortness of breath with activity and Denies slow heart rate Respiratory Respiratory: Denies chest congestion, Denies cough, Denies hemoptysis, Reports dyspnea, Reports dyspnea on exertion, Denies stridor and Denies wheezing Gastrointestinal Gastrointestinal: Denies abdominal pain, Denies bloating, Denies change in bowel habits, Denies change in stool character, Denies dysphagia, Denies nausea, Denies vomiting and Denies hematemesis Genitourinary Genitourinary: Denies hematuria, Denies urinary frequency and Denies difficulty voiding Musculoskeletal Musculoskeletal: Denies abnormal gait, Denies myalgias, Denies arthralgias, Denies limited range of motion and Denies neck pain Integumentary/Breasts Skin/Breast: Denies bleeding lesions, Denies change in pigmentation, Denies changing lesions, Denies new lesions, Denies rash, Denies skin swelling, Denies sores and Denies jaundice Neurologic Neurologic: Denies abnormal speech, Denies abnormal gait, Denies behavioral changes, Denies confusion, Denies dizziness, Denies syncope, Denies headache(s), Denies loss of vision, Denies memory loss, Denies seizure-like activity, Denies paresthesias and Denies weakness Psychiatric Psychiatric: Denies behavioral changes, Denies change in appetite, Denies confusion, Denies difficulty concentrating, Denies auditory hallucinations, Denies memory loss, Denies mood swings and Denies suicidal ideation Endocrine Endocrine: Denies excessive sweating, Denies flushing, Denies polyuria and Reports palpitations Hematologic/Lymphatic Hematologic/Lymphatic: Denies easy bleeding, Denies easy bruising and Denies lymphadenopathy Allergic/Immunologic Allergic/Immunologic: Denies urticaria, Denies itchy eyes, Denies lip swelling, Denies throat swelling, Denies tongue swelling and Denies wheezing Exam Vital Signs (past 8 hours): - 03/16/19 14:47 03/16/19 15:29 03/16/19 15:30 Temperature 97.9 F Pulse Rate 135 H 131 H 128 H Respiratory Rate 18 19 Blood Pressure 124/84 101/78 Blood Pressure [Right Arm] 101/78 Pulse Oximetry 98 96 03/16/19 15:41 03/16/19 15:45 03/16/19 16:00 Temperature Pulse Rate 109 H 117 H 120 H Respiratory Rate 15 19 21 Blood Pressure Blood Pressure [Right Arm] 91/65 102/78 102/69 Pulse Oximetry 94 95 95 03/16/19 16:29 03/16/19 16:30 03/16/19 16:45 Temperature Pulse Rate 122 H 126 H 126 H Respiratory Rate 18 21 21 Blood Pressure Blood Pressure [Right Arm] 100/70 106/88 98/63 Pulse Oximetry 97 96 95 03/16/19 16:54 03/16/19 17:00 03/16/19 17:35 Temperature Pulse Rate 110 H 111 H 104 H Respiratory Rate 16 19 18 Blood Pressure Blood Pressure [Right Arm] 114/67 96/61 112/73 Pulse Oximetry 94 94 03/16/19 18:24 Temperature Pulse Rate 118 H Respiratory Rate 18 Blood Pressure Blood Pressure [Right Arm] 119/69 Pulse Oximetry 97 Oxygen Delivery Method Room Air Narrative Exam Narrative: Elderly female who appears younger than stated age in no obvious distress lying in her hospital bed in the ICU HEENT-normocephalic atraumatic PERRLA EOMs intact Neck-no lymphadenopathy no bruits Lungs-good breath sounds no wheezes no crackles Heart-irregularly irregular, tachycardic, grade 3/6 systolic ejection murmur along the left sternal border without radiation Abdomen-positive bowel tones soft nontender nondistended no pedal splenomegaly Extremities-no cyanosis clubbing or edema Objective ECG Impression: Atrial fibrillation with rapid ventricular response nonspecific lateral ST segment changes, no previous tracing for comparison available Imaging Chest x-ray: Radiologist's impression: 1. Cardiomegaly with moderate associated vascular congestion is suggestive of mild pulmonary edema. 2. Small bilateral pleural effusions and associated atelectasis. Please correlate clinically to exclude the possibility of a superimposed pneumonia. Labs Result Diagrams: 03/16/19 14:45 03/16/19 14:45 Labs: Laboratory Results - last 24 hr 03/16/19 03/16/19 03/16/19 14:45 14:45 14:45 WBC 11.5 H RBC 4.56 Hgb 14.0 Hct 41.3 MCV 90.6 MCH 30.8 MCHC 34.0 RDW 14.1 Plt Count 293 Neut % (Auto) 78.7 H Lymph % (Auto) 14.8 L [place] % (Auto) 4.4 Eos % (Auto) 1.4 L Baso % (Auto) 0.7 Neut # (Auto) 9000 H Lymph # (Auto) 1700 [place] # (Auto) 500 Eos # (Auto) 200 Baso # (Auto) 100 PT 11.8 INR 1.0 Sodium 140 Potassium 4.5 Chloride 106 Carbon Dioxide 23 BUN 21 H Creatinine 0.70 Estimated GFR > 60.0 BUN/Creatinine Ratio 30.0 H Glucose 106 Calcium 9.8 Total Bilirubin 0.6 AST 23 ALT 20 Alkaline Phosphatase 81 Total Creatine Kinase 44 CK-MB (CK-2) TNP CK-MB (CK-2) Rel Index TNP Troponin I < 0.012 Total Protein 7.3 Albumin 4.4 Globulin 2.9 Albumin/Globulin Ratio 1.5 TSH Thyroxine (T4) 03/16/19 14:45 WBC RBC Hgb Hct MCV MCH MCHC RDW Plt Count Neut % (Auto) Lymph % (Auto) [place] % (Auto) Eos % (Auto) Baso % (Auto) Neut # (Auto) Lymph # (Auto) [place] # (Auto) Eos # (Auto) Baso # (Auto) PT INR Sodium Potassium Chloride Carbon Dioxide BUN Creatinine Estimated GFR BUN/Creatinine Ratio Glucose Calcium Total Bilirubin AST ALT Alkaline Phosphatase Total Creatine Kinase CK-MB (CK-2) CK-MB (CK-2) Rel Index Troponin I Total Protein Albumin Globulin Albumin/Globulin Ratio TSH 2.12 Thyroxine (T4) 9.04 Assessment & Plan Assessment & Plan narrative: 1. Atrial fibrillation-patient needs most immediately rate control. She was given IV diltiazem in the ER and this will be continued in the ICU. I would aim for heart rate of less than 110 consistently. Thus far her blood pressure was supported use of diltiazem. Patient should have serial troponins to rule out [place] specially given the minor ST-T segment changes on ECG although these are likely related to her rate Chest x-ray appears to have perhaps early pulmonary edema along with some cardiomegaly. She may indeed have an element of rate-related cardiomyopathy. Echocardiogram will be obtained. She does not appear hypoxic or to have any real respiratory distress therefore I do not think she needs treatment for her pulmonary edema I am not convinced that is present upon reviewing the actual images myself Thyroid studies have been ordered and are normal so not an etiology for her atrial fibrillation. No evidence of respiratory or pulmonary source of atrial fibrillation. Is not hypoxic is had no chest pain doubt whether something like pulmonary embolism could be causing chest pain but that remains on the list. This point I am going to fully anticoagulated with IV Lovenox deferring decision making regarding oral anticoagulation (vitamin K agonist verses direct oral anticoagulant) to her PCP Dr. Naik. She clearly will need to be anticoagulated for at least 3 weeks before any attempt at cardioversion should be made. (Assuming she does not convert on her own with rate control as often happens) 2. VTE prophylaxis-patient will be fully anticoagulated with Lovenox given her atrial fibrillation which will cover her of course for VTE prophylaxis 3. Code status-patient will remain a full code Patient is admitted to the hospital in fact to the ICU given the urgent nature of her issues with her uncontrolled atrial fibrillation requiring medication requires close monitoring. She more likely than not will be in the hospital greater than 48 hours including 2 separate midnights.
[2019-03-16] MEDS: MAGNESIUM HYDROXIDE 30 ML UDC PO (20:43)
[2019-03-16] MEDS: ENOXAPARIN 40 MG/0.4 ML SYRINGE 60 MG SUBCUT (20:45)
[2019-03-16 21:43] LABS: Troponin I 0.015 ng/mL (0.01-0.034)
--- NOTE | 2019-03-16 22:27 | PC.NURSE ---
Addendum entered by Nerissa Bradley R.N. 03/16/19 22:36: 2230 - Call placed to Dr. Thakur. Reviewed Cardizem gtt rate 15mg/hr. Current BP 88/64 map 73. Confirmed that MD was aware of pt c/o post nasal drip, notified that pt was placed on O2 for comfort. Orders obtained. Original Note: 2144 - Pt hr persists in the 120's. Cardizem gtt titrated up to 15mg/hr. Continues to deny chest pain, however complain of post nasal drip and SOB. Placed on 2L NC r/t heart rate and pt comfort. Monitor. 2044 -Pt hr continues to run in the 120's with elevations to 130's with activity. BP 111/52, Cardizem gtt increased to 10mg/hr. 1900 - Pt to room from ER. Able to stand transfer to bed. Denies pain. Pt reports feeling SOB. C/o increased work of breathing and post nasal drip, that chokes off my airway. Sats 95% on RA. Cardizem gtt infusing at 5 cc/hr. Pt oriented to room and routine. Educated to safety and call light use. Call light in reach.
[2019-03-16] MEDS: DIGOXIN 500 MCG/2 ML AMPUL IV (23:05)
[2019-03-17] VITALS (16 sets, daily range): BP systolic 94–156; BP diastolic 45–87; PULSE 72–102; RESP 15–28; TEMP 36.2–37; O2SAT 89–95
[2019-03-17] MEDS: DIGOXIN 500 MCG/2 ML AMPUL 250 MCG IV (03:07)
[2019-03-17 05:40] LABS: Troponin I 0.058 ng/mL (0.01-0.034)
--- NOTE | 2019-03-17 06:30 | PC.NURSE ---
Semiautomatic Taper Operator Note-Patient has been awake most of night, mildly nervous with many questions about diagnosis, needing reassurance. Denies chest pain, palpitations, or shortness of breath. Remains in A-fib CVR/RVR, rate 80s-110, highest noted was 118, during transfer to [facility], denies dizziness. Diltiazem gtt started at 15mg/hr, titrated down to 5mg/hr by 0300. IV Digoxin given as ordered. SpO2 88-94% on RA or 2L.
--- NOTE | 2019-03-17 07:00 | DI.ECHO.S_ITS ---
[facility]---------+ [facility] +---------+ : : [address] [place] : : : : [id number] : : : : Phone: [phone] Echocardiogram Report + + :Name: ANA SINGLETON Study Date: 03/17/2019 Height: 69 in : :[facility] Weight: 125 lb : : Gender: Female BSA: 1.7 m2 : :: 1935 Age: 83 yrs BP: 114/72 mmHg: :Reason For Study: AFIB : : Performed By: [facility] Staff : :Referring: JACKIE ACEVES R : + + Interpretation Summary Normal left ventricle size with ejection fraction 60-65%. Moderately dilated right ventricle with moderately reduced right ventricular systolic function. Severe biatrial enlargement. Mild to moderate aortic regurgitation. Posterior mitral valve leaflet prolapse. Severe mitral regurgitation, anteriorly directed jet. Moderate tricuspid regurgitation. The right ventricular systolic pressure is estimated to be at least 69 mmHg based on an estimated right atrial pressure of 15 mm Hg. Severe pulmonary hypertension. Moderate left-sided pleural effusion. Procedure: A two-dimensional transthoracic echocardiogram with color flow and Doppler was performed. The study quality was technically adequate. There is no prior echocardiogram noted for this patient. The patient was in normal sinus rhythm during the exam. Left Ventricle: The left ventricle is normal in size. There is normal left ventricular wall thickness. The ejection fraction is estimated to be 60-65%. Left ventricular wall motion is normal. Diastolic function could not be accurately assessed due to confounding valvular disease. Right Ventricle: The right ventricle is moderately dilated. Right ventricular systolic function is moderately reduced. Atria: There is severe biatrial enlargement. The interatrial septum is intact with no evidence for an atrial septal defect. Mitral Valve: The mitral valve leaflets appear mildly thickened, but open well. There is prolapse of the posterior mitral valve leaflet(s). There is severe mitral regurgitation. The mitral regurgitant jet is anteriorly directed, which is consistent with posterior leaflet pathology. Aortic Valve: The aortic valve is trileaflet. The aortic valve opens well. There is mild to moderate aortic regurgitation. Tricuspid Valve: The tricuspid valve is normal in structure and function. There is moderate tricuspid regurgitation. The right ventricular systolic pressure is estimated to be at least 69 mmHg based on an estimated right atrial pressure of 15 mm Hg. There is severe pulmonary hypertension. Pulmonic Valve: The pulmonic valve is normal in structure and function. There is trace pulmonic regurgitation. Great Vessels: The aortic root is normal size. The ascending aorta is at the upper limits of normal in size. The pulmonary artery is normal size. Pericardium/ Pleura There is a trivial pericardial effusion noted. There is a moderate left-sided pleural effusion. MMode/2D Measurements & Calculations LVIDd: 4.5 cm LVOT diam: 2.0 cm LVIDs: 3.0 cm Ao root diam: 3.2 cm FS: 33.5 % Aortic Jxn: 3.1 cm EPSS: 0.28 cm asc Aorta Diam: 3.5 cm IVSd: 1.3 cm LVPWd: 0.94 cm LV wei. diameter/BSA (cm/m^2): 2.7 LV sys. diameter/BSA (cm/m^2): 1.8 LA A2 area: 38.5 cm2 RA long axis: 6.3 cm LA A4 area: 35.3 cm2 RA area: 25.6 cm2 LA length (vol): 7.3 cm RA vol: 89.0 ml LA vol: 158.0 ml RA : 52.6 ml/m2 LA vol index: 93.4 ml/m2 IVC diam: 2.5 cm TAPSE: 1.0 cm Doppler Measurements & Calculations Ao V2 max: 117.1 cm/sec LVOT Max Jorge: 71.6 cm/sec Ao V2 mean: 66.9 cm/sec LV V1 max P.1 mmHg Ao max P.5 mmHg LV V1 VTI: 11.9 cm Ao mean P.3 mmHg BRADY(I,D): 2.1 cm2 Ao V2 VTI: 18.2 cm BRADY(V,D): 2.0 cm2 sev ratio: 0.65 BRADY indexed to BSA (cm^2/m^2): 1.3 AI P1/2t: 545.7 msec AI dec slope: 204.1 cm/sec2 MV E max jorge: 148.8 cm/sec TR max jorge: 351.7 cm/sec MV A max jorge: 1.7 cm/sec TR max P.7 mmHg MV E/A: 88.8 PA V2 max: 54.8 cm/sec MV dec time: 0.22 sec PA V2 mean: 35.8 cm/sec PA mean P.61 mmHg PA Accel Time: 0.06 sec SV(LVOT): 38.7 ml Electronically signed by: Nanette Nation on Reading Physician:03/17/2019 03:12 PM
--- NOTE | 2019-03-17 08:39 | PM.PN.1 ---
Subjective Subjective Date Patient Seen: 03/17/19 Time Patient Seen: 08:00 Interval history: This morning, the pt reports that she feels somewhat improved from yesterday. She has not been out of bed other than to the bedside commode, so she is uncertain how she would feel with ambulation. She denies any chest pain. Her palpitations and SOB have improved. As per nursing, the pt had no complaints overnight. Her heart rate goes up to the 120s when she is more active in bed or to the commode. Exam Vital Signs (past 8 hours): - 03/17/19 01:03 03/17/19 02:03 03/17/19 03:06 Temperature 98.6 F Pulse Rate 92 H 77 93 H Respiratory Rate 20 17 15 Blood Pressure 98/57 L 107/58 L 107/66 Pulse Oximetry 94 90 L 91 03/17/19 03:07 03/17/19 04:03 03/17/19 05:09 Temperature 97.7 F Pulse Rate 96 H 90 93 H Respiratory Rate 19 21 Blood Pressure 107/66 103/60 120/61 Pulse Oximetry 90 L 92 03/17/19 06:04 03/17/19 07:15 03/17/19 08:00 Temperature 97.5 F L Pulse Rate 96 H 88 102 H Respiratory Rate 17 21 22 Blood Pressure 120/57 L 100/56 L 106/70 Pulse Oximetry 89 L 94 95 Oxygen Delivery Method Room Air,Nasal Cannula Oxygen Flow Rate 2 Narrative Exam Narrative: Gen: NAD, sitting comfortably in bed, appears well CV: irregularly irregular rhythm, grade 3/6 systolic murmur Resp: clear to auscultation bilaterally Abdomen: Soft, nontender, nondistended Ext: no edema Objective Labs Result Diagrams: 03/16/19 14:45 03/16/19 14:45 Labs: Laboratory Results - last 24 hr 03/16/19 03/16/19 03/16/19 14:45 14:45 14:45 WBC 11.5 H RBC 4.56 Hgb 14.0 Hct 41.3 MCV 90.6 MCH 30.8 MCHC 34.0 RDW 14.1 Plt Count 293 Neut % (Auto) 78.7 H Lymph % (Auto) 14.8 L Thomas % (Auto) 4.4 Eos % (Auto) 1.4 L Baso % (Auto) 0.7 Neut # (Auto) 9000 H Lymph # (Auto) 1700 Thomas # (Auto) 500 Eos # (Auto) 200 Baso # (Auto) 100 PT 11.8 INR 1.0 Sodium 140 Potassium 4.5 Chloride 106 Carbon Dioxide 23 BUN 21 H Creatinine 0.70 Estimated GFR > 60.0 BUN/Creatinine Ratio 30.0 H Glucose 106 Calcium 9.8 Total Bilirubin 0.6 AST 23 ALT 20 Alkaline Phosphatase 81 Total Creatine Kinase 44 CK-MB (CK-2) TNP CK-MB (CK-2) Rel Index TNP Troponin I < 0.012 Total Protein 7.3 Albumin 4.4 Globulin 2.9 Albumin/Globulin Ratio 1.5 TSH Thyroxine (T4) Nasal Screen MRSA (PCR) 03/16/19 03/16/19 03/16/19 14:45 19:00 20:55 WBC RBC Hgb Hct MCV MCH MCHC RDW Plt Count Neut % (Auto) Lymph % (Auto) Thomas % (Auto) Eos % (Auto) Baso % (Auto) Neut # (Auto) Lymph # (Auto) Thomas # (Auto) Eos # (Auto) Baso # (Auto) PT INR Sodium Potassium Chloride Carbon Dioxide BUN Creatinine Estimated GFR BUN/Creatinine Ratio Glucose Calcium Total Bilirubin AST ALT Alkaline Phosphatase Total Creatine Kinase CK-MB (CK-2) CK-MB (CK-2) Rel Index Troponin I 0.015 Total Protein Albumin Globulin Albumin/Globulin Ratio TSH 2.12 Thyroxine (T4) 9.04 Nasal Screen MRSA (PCR) Negative for mrsa 03/17/19 04:42 WBC RBC Hgb Hct MCV MCH MCHC RDW Plt Count Neut % (Auto) Lymph % (Auto) Thomas % (Auto) Eos % (Auto) Baso % (Auto) Neut # (Auto) Lymph # (Auto) Thomas # (Auto) Eos # (Auto) Baso # (Auto) PT INR Sodium Potassium Chloride Carbon Dioxide BUN Creatinine Estimated GFR BUN/Creatinine Ratio Glucose Calcium Total Bilirubin AST ALT Alkaline Phosphatase Total Creatine Kinase CK-MB (CK-2) CK-MB (CK-2) Rel Index Troponin I 0.058 H Total Protein Albumin Globulin Albumin/Globulin Ratio TSH Thyroxine (T4) Nasal Screen MRSA (PCR) Assessment & Plan Assessment & Plan narrative: Patient is an 83-year-old woman, previously healthy on no medications, who presented with shortness of breath and palpitations. She was found to be in AFib with RVR in the emergency department. She has been on a diltiazem drip for rate control, and received 2 doses of IV digoxin last night as well. Heart rate now significantly improved. 1) Atrial fibrillation: New onset. Troponin on 3rd repeat very slightly elevated, however very low suspicion for [place] as cause. -continue to trend troponin -start p.o. metoprolol 50 mg b.i.d. -continue diltiazem drip. Wean as tolerated. -echocardiogram to be completed today -continue therapeutic Lovenox dosing. Discussed long-term anticoagulation with the patient this morning. She will likely opt for a direct oral anticoagulant. Will discuss again tomorrow. -continue telemetry FEN: Regular diet DVT prophylaxis: On Lovenox as above Code status: Full code This full: Pending adequate rate control. Anticipate at least 1 additional midnight. Patient would like to go home as soon as possible. Do not anticipate any needs that should prevent patient from returning home. Quality VTE Deep Vein Thrombosis/Pulmonary Embolism Present on Admission: No
[2019-03-17] MEDS: METOPROLOL IR 50 MG TABLET PO ×2 (09:19→20:14)
[2019-03-17] MEDS: MAGNESIUM HYDROXIDE 30 ML UDC PO ×2 (09:19→20:14)
[2019-03-17 09:33] LABS: Troponin I 0.066 ng/mL (0.01-0.034)
[2019-03-17] MEDS: INFLUENZA VACCINE 0.5 ML SYRINGE IM (10:43)
[2019-03-17] MEDS: ENOXAPARIN 60 MG/0.6 ML SYRINGE SUBCUT ×2 (10:45→20:14)
--- NOTE | 2019-03-17 12:00 | PT.IIE ---
Current Diagnoses Unspecified atrial fibrillation (03/16/19) Surgical History (Last Reviewed 03/16/19 @ 19:12 by Collins Thakur MD) Anesthesia (Resolved) History of colonoscopy with polypectomy (Resolved 07/05/17) History of colonoscopy with polypectomy (Resolved ~2012) History of non-cataract eye surgery (Resolved 1996) History of non-cataract eye surgery (Resolved 2014) Status post rotator cuff repair (Resolved 2001) Medical History (Last Reviewed 03/16/19 @ 19:12 by Collins Thakur MD) Diverticular disease (Chronic) Left retinal detachment (Resolved 1996) Osteopenia (Chronic 2004) Right retinal detachment (Resolved 2014) Shoulder pain (Chronic 2016) Urinary incontinence (Chronic) Physical Therapy Inpatient Evaluation/Re-Eval M1 PT/OT-IP Prior Functional Status Start: 03/17/19 12:13 Freq: NEEDED Status: Active Protocol: Document 03/17/19 11:38 MT (Rec: 03/17/19 12:33 MT [email or web address]) Medical Review Prior Functional Status Medical History Reviewed Yes Diet/Fluid Consistency Regular Communication Pt is able to make needs known Mobility and Gait Pt reports being independenet with all mobility and gait and did not use an assistive device Activities of Daily Living and IADL's Pt reports being independent with all ADL's Social History Household Members none Living Arrangements House Number of Floors (Floors) One Floor Number of Stairs To Enter/Railing? There are 2 stairs to enter house with handrail on right going up Home Environment Standard Height Toilet,Walk in Shower Home Equipment Front Wheel Walker,Hand Held Shower,Grab Bars In Shower Employment Status Retired Additional Social History Comment Pt's son and son's live in town and are able to assist her intermittently if needed. Pt otherwise lives alone. M2 PT-IP Current Condition Start: 03/17/19 12:13 Freq: NEEDED Status: Active Protocol: Document 03/17/19 11:38 MT (Rec: 03/17/19 12:33 MT [email or web address]) Physical Therapy Current Condition Current Condition Evaluation Date 03/17/19 Treatment Diagnosis SOB and reduced gait ability Onset Date 03/16/19 M3 PT-IP Subjective Start: 03/17/19 12:13 Freq: NEEDED Status: Active Protocol: Document 03/17/19 11:38 MT (Rec: 03/17/19 12:33 MT [email or web address]) Subjective Physical Therapy Visit Type Type Initial Evaluation Visit Start Time 11:38 Visit Stop Time 12:01 Total Visit Minutes 23 Number of GLOBAL SUPPLY CHAIN DIRECTOR Visits 0 Physical Therapy Visit Comments Patient Comments Pt agreeable to participate in PT evaluation Therapy Pain Assessment Pain When Pain Assessed At Rest Pain Present Pain Present Denied Pain M4 PT-IP Mobility and Gait Start: 03/17/19 12:13 Freq: NEEDED Status: Active Protocol: Document 03/17/19 11:38 MT (Rec: 03/17/19 12:33 MT [email or web address]) PT-Bed Mobility Assessment Supine to Sit Supine to Sit Independent Scooting Scooting to Edge of Bed Independent PT-Transfer Assessment Sit to and From Stand Sit to and from Stand Standby Assistance,1 Person Assistance,Use of Upper Extremities Equipment Transfer Assistive Device Gait Belt,Front Wheeled Walker Orthotic/Prosthetic Devices or Brace: No Transfers Transfer Destination Chair Transfer Technique Sit to stand to initiate walking Transfer Ability Level of Assist Standby Assistance Comments Mobility Comments Pt was found [facility] bed. Her BP was taken and found to be 104/46. Pt stated no symptoms of dizziness or lightheadedness, but reported feeling exhausted. Pt performed supine to sit and scooting edge of bed independently. Pt's BP after sitting was 103/51. She performed sit to stand using 2WW for support, but PT decided that she was able to stand without using 2WW. BP was reassessed in standing and found to be 101/49. Pt initiated ambuilation. She was repositioned following amulation in the chair with call light and table with in reach Gait Assessment Gait Gait Assistance Required: Standby Assistance,Contact Guard Assist,1 Person Assist Distance (Feet) 100 Able to Maintain Weight Bearing Status Yes During Gait Assistive Devices Assistive Device Gait Belt Orthotic/Prosthetic Devices or Brace: No Gait Deviations General Gait Pattern Ataxic,Decreased Stride Length ,Decreased Feet Clearance Factors Limiting Gait Function Factors Limiting Gait Function Decreased Activity Tolerance, Decreased Strength,Poor Balance Comments Gait Comments Pt ambulated 100ft within hallway without use of AD. She required CGA during first few steps due to decreased balance, but progressed to SBA as she continued to walk. She reported no symptoms of dizziness or light-headedness, but said that her legs felt like they were weaker. Stair Climbing Assessment Comments Stair Climbing Comments not assessed at this time PT-Balance Assessment Sitting Balance and Reactions Static Sitting Balance Ability Good Dynamic Sitting Balance Ability Good Standing Balance and Reactions Static Standing Balance Ability Good Dynamic Standing Balance Ability Good Device Used none M5 PT-IP Objective Assessments Start: 03/17/19 12:13 Freq: NEEDED Status: Active Protocol: Document 03/17/19 11:38 MT (Rec: 03/17/19 12:33 MT [email or web address]) Orientation Orientation/Cognition Level of Alertness Alert Orientation Name,Place,Situation Language Function Ability No Deficits Noted Safety Awareness Understands Safety Issues Memory Description No Deficits Noted Gross Range of Motion Lower Extremity ROM Assessment Within Functional Limits Strength Lower Extremity Strength Assessment Bilaterally Impaired Hip 3+/5 B hip flexion Knee 3/5 B knee ext/flex Ankle 4/5 B ankle PF/DF Comments Strength Comments Pt demonstrates general bilateral LE weakness M6 PT-IP Treatment Start: 03/17/19 12:13 Freq: NEEDED Status: Active Protocol: Document 03/17/19 11:38 MT (Rec: 03/17/19 12:33 MT [email or web address]) Physical Therapy Treatment Education Education Provided Safety M7 PT-IP Assessment and Plan Start: 03/17/19 12:13 Freq: NEEDED Status: Active Protocol: Document 03/17/19 11:38 MT (Rec: 03/17/19 12:33 MT [email or web address]) PT Summary Assessment and Plan Potential Rehabilitation Potential Good Status of Condition at Evaluation Evolving Summary Impairments Strength,Balance,Transfers, Gait,Activity Tolerance Assessment Summary Pt presents to PT with generalized B LE weakness and poor activity tolerance. She slef admitted into the hopsital due to worsening shortness of breath with activity and low blood pressure. See above for mobility and gait comments. She was able to perform these activities without a severe change in BP or reports of SOB , dizziness, or lightheadedness. She will continue to benefit from skilled PT in order to assess her ability to navigate stairs and improe her safety and independence with mobility for discahrge home with occassional asssitance from son. Goals Bed Mobility Goal Independent Transfer Goal Independent Gait Goal Independent Gait Distance 300 Other Goals able to ascend/descend 2 stairs with R handrail and SBA Days to Meet Goals 5 Frequency of Treatment Frequency Of Treatment Once a Day Treatment Plan Physical Therapy Treatment Plan Bed Mobility Training,Transfer Training,Gait Training, Therapeutic Exercise,Balance Retraining,Discharge Planning Other Recommendations and Next Treatment stair training Focus Recommendations To Nursing Amount of Assist Needed 1 Person Assist Discharge Recommendations PT Discharge Recommendations Home with Assistance
[2019-03-17 16:18] LABS: Troponin I 0.036 ng/mL (0.01-0.034)
--- NOTE | 2019-03-17 17:46 | PC.NURSE ---
Patient c/o SOB while sitting up in bed and was to winded to eat dinner. Breathing improved once back to bed. Heart rate up to the low 100s while up. o2 sats on room air 92-94%.
--- NOTE | 2019-03-17 17:59 | CM.DANOTE ---
DCP Assessment: EMR reviewed: Patient is a 83 yr female who was admitted to for treatment for new onset AFIB- uncontrolled, SOB, and chest pain. Patients PCP is Dr. Naik. Cm/Rn met with patient at the bedside and explained CM/RN role. Patient was alert and oriented x3 during CM visit. Patient is I for all ADL's and drives independently. Patient currently lives alone in a single level home. Patient does have a son (Dheeraj) who lives near by with his . Patients plan is to D/C to sons house here in [place] so she can have help with recovery. Patient stated that she will be at her son's house during the days and at night she will be at her house to sleep. PT evaluation stated patient can go home with assistance. I: Medicare, 2nd: [employer] Plan: D/C home with son when patient is medically stable. NO D/C planning needs noted at this time. CM department will follow patient to determine if any new D/C planning needs will arise prior to d/c Nadya Godoy RN. Discharge Planning/Care Management Advanced directive, confirm from FAMILY Start: 03/16/19 20:06 Freq: Q24H Status: Complete Protocol: Document 03/17/19 00:30 SMS (Rec: 03/17/19 01:39 SMS [id number]) Advance Directive, confirm on record Time 00:30 Person contacted No one Copy received No Copy received No Advanced directive available on record No CM Discharge Assessment Start: 03/17/19 17:57 Freq: Status: Active Protocol: Document 03/17/19 17:57 HS (Rec: 03/17/19 17:58 [id number]) Discharge Planning Assessment Assigned Certified Neurodiagnostic Technologist Nadya Godoy RN DPOA/Assigned Designee Name Dheeraj Mejia (son) Contact Information [phone] Advance Directives? Yes History Provided By Patient Has Patient been admitted in last 30 No days? Prior Living Arrangements House Household Members none Type of transporation used prior to Drives own vehicle admit Independent with ADL's Yes Is patient alert and oriented? Yes Caregiver for Another No DME Already Rented / Owned Bath Bench,FWW / Walker,Cane Discharge Plan Home Transportation Arrangement Patients son will pick her up and patient will stay with her son during the day and at home at night during her recovery Referrals Initiated None needed Whiteboard Updated in Patient Room with Yes name and ext. # of Certified Neurodiagnostic Technologist Review Status In Process Next Review Type Continued Stay Review .
[2019-03-17] MEDS: SODIUM CHLORIDE 0.9% FLUSH 10 ML IV (20:14)
[2019-03-18 04:30] VITALS: BP 104/54; PULSE 101; RESP 18; TEMP 36.7; O2SAT 94
--- NOTE | 2019-03-18 06:46 | PC.NURSE ---
Nailing Machine Feeder Note-Patient was able to doze last night. Uses call light appropriately for assistance to BR. Denies shortness of breath, palpitations, or lightheadedness. Remains in A-fib CVR, HR up to 110 briefly while ambulating.
[2019-03-18] MEDS: METOPROLOL IR 50 MG TABLET PO ×2 (07:48→16:57)
--- NOTE | 2019-03-18 08:10 | PM.DS.1 ---
History of Present Illness History of Present Illness Date Patient Seen: 03/18/19 Time Patient Seen: 07:45 Chief complaint: SOB , tightness in chest Narrative: Remarkably healthy 83-year-old female on no prescription medication who presented to the [facility] Emergency Department on day of admission with up to 2 weeks of symptoms of dyspnea dyspnea upon exertion pounding heart rate even in the middle of the night just feeling weak tired and puny Denies any other specific symptoms. Maybe had some pressure sensation along the anterior chest with the palpitation she was feeling. No cough certainly no hemoptysis no cold or flu symptoms no fever chills no nausea vomiting no symptoms in her neck back shoulders arms In the ER she was evaluated found to have new onset atrial fibrillation with rapid ventricular response. She slowed some with a single bolus of IV diltiazem and was admitted to the ICU for further evaluation and treatment Discharge Providers Provider Date of admission: 03/16/19 16:27 Discharge Date: 03/18/19 Primary care physician: Palak Naik MD Consults: 03/17/19 08:30 Consult to Physical Therapy Evaluate & Treat Comment: Physician Instructions: Evaluate and Treat Discharge provider: Palak Naik MD Summary Hospital Course Discharge Diagnosis: Atrial fibrillation with RVR Severe mitral regurgitation Severe pulmonary hypertension Cardiomegaly Hospital Course: The pt was admitted with atrial fibrillation with RVR. She was started on diltiazem drip. This was continued for approximately 24 hours. The patient did receive 2 doses of IV digoxin on her 1st day of admission. P.o. metoprolol 50 mg twice a day was then started. This provided adequate rate control, and the patient was able to be titrated off the IV diltiazem. The patient did not convert to sinus rhythm during her hospitalization. The time of discharge, her heart rate was consistently in the 80-90 range. Echocardiogram was completed that showed severe mitral regurgitation, severe pulmonary hypertension, and significant biatrial enlargement. The patient's EF was preserved. The patient continued to have shortness of breath. Repeat chest x-ray was completed that showed cardiomegaly, and possible atelectasis versus consolidation in the left lower lobe. Due to no other symptoms of pneumonia, this was not treated as such. She was given incentive spirometer to use at home. CT PE was completed that showed no pulmonary embolism, but again showed significant cardiomegaly. The patient is being discharged home on p.o. metoprolol and Xarelto for anticoagulation. She will follow up in clinic in 1 week. Referral is also being placed for Cardiology for follow-up, especially in light of severe mitral regurgitation, pulmonary hypertension, and significant cardiomegaly on imaging. Status at Discharge Cognitive/behavioral status at discharge: oriented Functional status at discharge: independent ambulation Overall status at discharge: patient is progressing back to baseline Time Spent with Patient Time spent: Greater than 30 minutes Exam Vital Signs (past 8 hours): - 03/18/19 04:30 Temperature 98.1 F Pulse Rate 101 H Respiratory Rate 18 Blood Pressure 104/54 L Pulse Oximetry 94 Oxygen Delivery Method Room Air Oxygen Flow Rate 0 Narrative Exam Narrative: Gen: NAD, sitting comfortably in bed, appears well CV: irregularly irregular rhythm, grade 3/6 systolic murmur Resp: clear to auscultation bilaterally Abdomen: Soft, nontender, nondistended Ext: no edema Objective Imaging Chest x-ray: Radiologist's impression: 1. COPD. 2. Cardiomegaly, pulmonary venous congestion without bautista pulmonary edema. 3. Minimal left basilar atelectasis versus consolidation and small left pleural effusion. Echo: Radiologist's impression: Interpretation Summary Normal left ventricle size with ejection fraction 60-65%. Moderately dilated right ventricle with moderately reduced right ventricular systolic function. Severe biatrial enlargement. Mild to moderate aortic regurgitation. Posterior mitral valve leaflet prolapse. Severe mitral regurgitation, anteriorly directed jet. Moderate tricuspid regurgitation. The right ventricular systolic pressure is estimated to be at least 69 mmHg based on an estimated right atrial pressure of 15 mm Hg. Severe pulmonary hypertension. Moderate left-sided pleural effusion. CT scan - chest: Radiologist's impression: 1. No evidence of pulmonary emboli. 2. Four-chamber cardiomegaly. 3. Small bilateral pleural effusions, minimal bibasilar atelectasis. Labs Result Diagrams: 03/16/19 14:45 03/16/19 14:45 Labs: Laboratory Results - last 24 hr 03/17/19 03/17/19 08:45 15:40 Troponin I 0.066 H 0.036 H Discharge Plan Discharge Plan Patient Disposition: Home Discharge orders & Medications Prescriptions: New metoprolol tartrate 50 mg Tablet 50 mg PO BID Qty: 60 RF: 2 rivaroxaban 20 mg tablet 20 mg PO QPM Qty: 30 RF: 3 Follow up/Referrals: Palak Naik MD [Primary Care Provider] - 03/24/19 8:30 am Diet/Activity/Treatments Diet: Regular Visit Report/Discharge Packet Instructions: DI for Atrial Fibrillation, Rivaroxaban, Digoxin, Diltiazem, Metoprolol (By mouth) Visit Report Forms: Patient Portal/API, Stroke Signs & Symptoms Discharge Data Primary Care Provider: Palak Naik Quality VTE Deep Vein Thrombosis/Pulmonary Embolism Present on Admission: No
[2019-03-18 08:22] VITALS: BP 105/61; PULSE 120; RESP 19; TEMP 36.3; O2SAT 96
[2019-03-18 08:57] VITALS: PULSE 86
[2019-03-18] MEDS: SODIUM CHLORIDE 0.9% FLUSH 10 ML IV (09:05)
[2019-03-18] MEDS: ENOXAPARIN 60 MG/0.6 ML SYRINGE SUBCUT (09:05)
--- NOTE | 2019-03-18 09:37 | PC.NURSE ---
Patient alert, oriented, reports shortness of breath with eating, sats 96% on RA. HR irregular rate in the 90's. Denies chest pain. LS CTA. Ambulated around nursing station on RA sats remained mis 90's, HR 90's. Patient reports feeling whoozy. Called Dr Naik to report above, new orders received.
--- NOTE | 2019-03-18 09:57 | DI.RAD.S_ITS ---
PROCEDURE: XR CHEST 1V INDICATIONS: shortness of breath TECHNIQUE: One view of the chest was acquired. COMPARISON: [facility], CR, XR CHEST 1V, 03/16/2019, 15:00. FINDINGS: Surgical changes and devices: None. Lungs and pleura: Emphysematous change. Pulmonary venous congestion without bautista pulmonary edema. Minimal left basilar atelectasis versus consolidation and small left pleural effusion. All Mediastinum: Mediastinal contours appear normal. Unchanged mild cardiomegaly. Bones and chest wall: No suspicious bony lesions. Overlying soft tissues appear unremarkable. IMPRESSION: 1. COPD. 2. Cardiomegaly, pulmonary venous congestion without bautista pulmonary edema. 3. Minimal left basilar atelectasis versus consolidation and small left pleural effusion. Dictated by: Calin Irving M.D. on 03/18/2019 at 10:25 Approved by: Calin Irving M.D. on 03/18/2019 at 10:27
[2019-03-18 11:06] VITALS: BP 95/64; PULSE 84; RESP 19; TEMP 37.2; O2SAT 93
[2019-03-18] MEDS: ALBUTEROL/IPRATROPIUM 3 ML AMPUL INH (12:38)
[2019-03-18 12:42] VITALS: O2SAT 98
--- NOTE | 2019-03-18 13:15 | DI.CT.S_ITS ---
PROCEDURE: CT ANGIO CHEST PE PROTOCOL INDICATIONS: persistent SOB, new a-fib TECHNIQUE: After the administration of intravenous contrast, 2 mm thick sections acquired from the pulmonary apices to the posterior costophrenic angles. 3-dimensional maximum intensity projection (MIP) coronal and sagittal reformats were then acquired through the thorax. For radiation dose reduction, the following was used: automated exposure control, adjustment of mA and/or kV according to patient size. COMPARISON: None. FINDINGS: Image quality: Excellent. Pulmonary arteries: Pulmonary arteries are normal in size, and demonstrate no intraluminal filling defects to suggest central pulmonary embolism. Lungs and pleura: Minimal bibasilar atelectasis. Small bilateral pleural effusions. No pleural effusions or pneumothorax. Tiny calcified granuloma, right apex. Central and peripheral airways are patent. Mediastinum: Four-chamber cardiomegaly. No mediastinal or hilar adenopathy. Thoracic aorta is normal in caliber and enhancement. Esophagus is normal in caliber, without hiatal hernia. Bones and chest wall: No suspicious bony lesions. Ribs and thoracic spine appear intact throughout. Thyroid gland is unremarkable. No axillary or supraclavicular adenopathy. Abdomen: Visualized upper abdominal solid organs appear normal in the early arterial phase of enhancement. IMPRESSION: 1. No evidence of pulmonary emboli. 2. Four-chamber cardiomegaly. 3. Small bilateral pleural effusions, minimal bibasilar atelectasis. Dictated by: Calin Irving M.D. on 03/18/2019 at 13:40 Approved by: Calin Irving M.D. on 03/18/2019 at 13:45
--- NOTE | 2019-03-18 13:36 | PT.IPTN ---
Current Diagnoses Unspecified atrial fibrillation (03/16/19) Physical Therapy Treatment Note M2 PT-IP Current Condition Start: 03/17/19 12:13 Freq: NEEDED Status: Active Protocol: Document 03/17/19 11:38 MT (Rec: 03/17/19 12:33 MT [email or web address]) Physical Therapy Current Condition Current Condition Evaluation Date 03/17/19 Treatment Diagnosis SOB and reduced gait ability Onset Date 03/16/19 M3 PT-IP Subjective Start: 03/17/19 12:13 Freq: NEEDED Status: Active Protocol: Document 03/18/19 13:12 LJ (Rec: 03/18/19 13:35 LJ [id number]) Subjective Physical Therapy Visit Type Type Treatment Note Visit Start Time 13:12 Visit Stop Time 13:22 Total Visit Minutes 10 Notes in room with pt and pt's son Physical Therapy Visit Comments Patient Comments Pt agreeable to participate in PT M4 PT-IP Mobility and Gait Start: 03/17/19 12:13 Freq: NEEDED Status: Active Protocol: Document 03/18/19 13:12 LJ (Rec: 03/18/19 13:35 [id number]) PT-Bed Mobility Assessment Supine to Sit Supine to Sit Independent Scooting Scooting to Edge of Bed Independent PT-Transfer Assessment Sit to and From Stand Sit to and from Stand Standby Assistance,1 Person Assistance,Use of Upper Extremities Equipment Transfer Assistive Device Gait Belt Orthotic/Prosthetic Devices or Brace: No Transfers Transfer Destination Wheelchair Transfer Technique Sit to stand to initiate walking Transfer Ability Level of Assist Standby Assistance Comments Mobility Comments Pt is independent or SBA for bed mobility and transfers. Gait Assessment Gait Gait Assistance Required: Standby Assistance,Contact Guard Assist,1 Person Assist Distance (Feet) 200 Able to Maintain Weight Bearing Status Yes During Gait Assistive Devices Assistive Device Gait Belt Orthotic/Prosthetic Devices or Brace: No Gait Deviations General Gait Pattern Ataxic,Decreased Stride Length ,Decreased Feet Clearance Factors Limiting Gait Function Factors Limiting Gait Function Decreased Activity Tolerance, Decreased Strength,Poor Balance Comments Gait Comments Pt ambulated around ICU x2 requiring SBA and occasional CGA. Pt walks with narrow gait and occasionally lists laterally but no LOB. M5 PT-IP Objective Assessments Start: 03/17/19 12:13 Freq: NEEDED Status: Active Protocol: Document 03/17/19 11:38 MT (Rec: 03/17/19 12:33 MT [email or web address]) Orientation Orientation/Cognition Level of Alertness Alert Orientation Name,Place,Situation Language Function Ability No Deficits Noted Safety Awareness Understands Safety Issues Memory Description No Deficits Noted Gross Range of Motion Lower Extremity ROM Assessment Within Functional Limits Strength Lower Extremity Strength Assessment Bilaterally Impaired Hip 3+/5 B hip flexion Knee 3/5 B knee ext/flex Ankle 4/5 B ankle PF/DF Comments Strength Comments Pt demonstrates general bilateral LE weakness M6 PT-IP Treatment Start: 03/17/19 12:13 Freq: NEEDED Status: Active Protocol: Document 03/17/19 11:38 MT (Rec: 03/17/19 12:33 MT [email or web address]) Physical Therapy Treatment Education Education Provided Safety M7 PT-IP Assessment and Plan Start: 03/17/19 12:13 Freq: NEEDED Status: Active Protocol: Document 03/18/19 13:12 LJ (Rec: 03/18/19 13:35 LJ [id number]) PT Summary Assessment and Plan Potential Rehabilitation Potential Good Status of Condition at Evaluation Evolving Summary Impairments Strength,Balance,Transfers, Gait,Activity Tolerance Assessment Summary Pt ambulated SBA to CGA in hallway of ICU. No c/o of SOB until end of session. Narrow gait pattern with some lateral sway but no loss of balance. Radiology arrived to take her for a CT scan. Pt fatigued after 10 minutes of ambulation . Goals Bed Mobility Goal Independent Transfer Goal Independent Gait Goal Independent Gait Distance 300 Other Goals able to ascend/descend 2 stairs with R handrail and SBA Days to Meet Goals 5 Frequency of Treatment Frequency Of Treatment Once a Day Treatment Plan Physical Therapy Treatment Plan Bed Mobility Training,Transfer Training,Gait Training, Therapeutic Exercise,Balance Retraining,Discharge Planning Other Recommendations and Next Treatment stair training Focus Recommendations To Nursing Amount of Assist Needed Standby Assistance Discharge Recommendations PT Discharge Recommendations Home with Assistance
[2019-03-18 15:16] VITALS: BP 101/51; PULSE 98; RESP 18; TEMP 36.5; O2SAT 93
--- NOTE | 2019-03-18 16:03 | PC.NURSE ---
patient refuses scd's even on low pump, she states they bother her and she cant sleep
--- NOTE | 2019-03-18 17:09 | PC.NURSE ---
Patient with discharge orders and agreeable to go back home. Up independently to get dressed. Iv and tele removed. Son here to drive patient home. Patient escorted out via wheelchair by hospital staff. All education and belongings given to patient.
== END 2019-03-18 17:10 | disposition home or self-care (01) | DRG 310 ==
LOC: ED 16:14 → AC 16:27 → ICU 19:08
PROVIDERS: Admitting Provider Internal Medicine; Emergency Provider Emergency Medicine; PCP Family Medicine; Visit Provider Family Medicine
DX: I48.91 Unspecified atrial fibrillation (principal); I34.0 Nonrheumatic mitral (valve) insufficiency; I27.20 Pulmonary hypertension, unspecified; I51.7 Cardiomegaly; Z23 Encounter for immunization
CPT/HCPCS: 36415; 71045; 71275; 80053; 81003; 82550; 84436; 84443; 84484; 85025; 85610; 87797; 90471; 90656; 93005; 93041; 93306; 94640; 94760; 96365; 96366; 96376; 97116; 97162; 99223; 99232; 99238; 99285; J1160; J1650; Q2038; Q9967

== ENCOUNTER 2019-03-21 10:03 | Emergency (ER) | payer MEDICARE, OTHER, SELFPAY ==
[2019-03-16 19:34] VITALS: BMI 18.6
[2019-03-21] VITALS (7 sets, daily range): BP systolic 96–119; BP diastolic 56–73; PULSE 71–92; RESP 16–27; TEMP 37.1; O2SAT 93–99; BMI 19.2
--- NOTE | 2019-03-21 10:13 | DI.RAD.S_ITS ---
PROCEDURE: XR CHEST 1V INDICATIONS: chest pain TECHNIQUE: One view of the chest was acquired. COMPARISON: [facility], CR, XR CHEST 1V, 03/18/2019, 10:05. FINDINGS: Surgical changes and devices: None. Lungs and pleura: The small bilateral pleural effusions, left greater than right with adjacent atelectasis. Scattered submegmental scarring and/or atelectasis. However, increased hazy and ground glass bilateral scattered opacities. [place] B-lines Mediastinum: Mediastinal contours appear normal. Heart size is normal. Bones and chest wall: No suspicious bony lesions. Overlying soft tissues appear unremarkable. IMPRESSION: Small bilateral pleural effusions, left greater than right. This appears progressed bilaterally since 03/18/19. Mild/developing pulmonary edema. Cannot exclude underlying infection, therefore please correlate clinically Dictated by: Barron Fall M.D. on 03/21/2019 at 10:57 Approved by: Barron Fall M.D. on 03/21/2019 at 10:59
[2019-03-21 10:27] LABS: Add Manual Diff / Slide Review NO; Basophils Absolute Auto 100 /uL (0-100); Basophils Percent Auto 0.8 % (0-2); Eosinophils Absolute Auto 0 /uL (0-450); Eosinophils Percent Auto 0.4 % (2-4); Hematocrit 40.1 % (36-46); Hemoglobin 13.2 g/dL (12.0-16.0); Lymphocytes Absolute Auto 1300 /uL (1100-4500); Lymphocytes Percent Auto 15.3 % (25-40); Mean Corpuscular Hemoglobin 30.2 PG (26-34); Mean Corpuscular Volume 91.7 fL (80-100); Monocytes Absolute Auto 600 /uL (0-900); Monocytes Percent Auto 7.3 % (3-14); Neutrophils Absolute Auto 6500 /uL (1500-7000); Neutrophils Percent Auto 76.2 % (50-75); Platelet Count 271 X10^3/uL (150-400); Red Blood Cell Count 4.37 X10^6/uL (4.0-5.2); Red Cell Distribution Width 13.6 % (11.6-14.8); White Blood Cell Count 8.6 X10^3/uL (4.5-11.0)
[2019-03-21 10:34] LABS: INR 1.4 (0.9-1.3); Prothrombin Time 16.3 SECONDS (10.1-12.7)
--- NOTE | 2019-03-21 10:35 | ED_ITS ---
HPI - Chest Pain General Chief Complaint: Chest Pain Stated Complaint: SOB/ CHEST PAIN Time Seen by Provider: 03/21/19 10:23 Source: patient and family Mode of arrival: Ambulatory Limitations: no limitations History of Present Illness HPI narrative: The patient is a 83-year-old female presents with shortness of breath. She was diagnosed with atrial fibrillation and admitted to the ICU 03/16/2019 and discharged on 03/18/2019. During her stay she had an echocardiogram and CTA. EF did show 60-65% and there was no pulmonary embolism however she does have a left pleural effusion. She was started on metoprolol a nd Xarelto. Both new medications for her. She states that she feels short of breath all the time it is worse when she lies down she has been sleeping sitting up for about the last 10 days. No fever or chills. She sometimes has chest pain as well but she thinks that it may be related to her breathing. She has no heart palpitations. She is currently in atrial fibrillation but her rate is controlled in the 80s. MD complaint: chest pain and other (Shortness of breath) Related Data Previous Rx's Medication Instructions Recorded metoprolol tartrate 50 mg PO BID #60 tab 03/18/19 rivaroxaban 20 mg PO QPM #30 tab 03/18/19 furosemide [Lasix] 20 mg PO QAM #30 tab 03/21/19 Allergies Allergy/AdvReac Type Severity Reaction Status Date / Time No Known Drug Allergies Allergy Verified 03/16/19 15:02 Review of Systems Review of Systems ROS Unobtainable: All systems reviewed & are unremarkable except as noted in HPI and below Eyes Eyes: Denies change in vision, Denies eye discharge, Denies irritation and Denies loss of vision ENT Ears, Nose, Mouth, and Throat: Denies change in voice, Denies neck pain and Denies sore throat Cardiovascular Cardiovascular: Reports as per HPI, Reports pedal edema, Reports irregular heart rhythm, Reports dyspnea, Reports dyspnea on exertion and Reports orthopnea Respiratory Respiratory: Reports as per HPI, Reports dyspnea and Reports dyspnea on exertion Gastrointestinal Gastrointestinal: Denies abdominal pain, Denies change in bowel habits, Denies diarrhea, Denies nausea and Denies vomiting Genitourinary Genitourinary: Denies hematuria, Denies flank pain, Denies urinary incontinence and Denies urinary urgency Musculoskeletal Musculoskeletal: Denies neck pain Integumentary/Breasts Skin/Breast: Denies pruritus, Denies erythema, Denies rash and Denies wounds Neurologic Neurologic: Denies loss of vision Patient History Social History household members: none Smoking Status: Never smoker alcohol intake frequency: a few times a month Substance Use Type: does not use Exam Initial Vital Signs Initial Vital Signs: Vital Signs Temperature 98.7 F 03/21/19 10:04 Pulse Rate 92 H 03/21/19 10:04 Respiratory Rate 20 03/21/19 10:04 Blood Pressure 119/73 03/21/19 10:04 Pulse Oximetry 95 03/21/19 10:04 GENERAL: Alert well-appearing elderly female HEENT: Head atraumatic,EOMI, pupils reactive, face symmetric, CARDIOVASCULAR: Irregularly irregular RESPIRATORY: No respiratory distress, speaks in full sentences decreased breath sounds at bases ABDOMEN: Soft, nontender. Normoactive bowel sounds all 4 quadrants. No guarding or rebound EXTREMITIES: Normal range of motion, no clubbing or edema. Neurovascularly intact NEUROLOGICAL: Alert and oriented x4.Normal gait and speech. Cranial nerves II through XII grossly intact. SKIN: Warm, dry, no laceration, no petechiae, no rashes or lesions. Course Orders Ordered: ED Orders 03/21/19 10:13 XR chest 1V Stat EKG-12 Lead Stat 03/21/19 10:20 Complete Blood Count AUTO DIFF Stat Comprehensive Metabolic Panel Stat Lipase Stat Partial Thromboplastin Time Stat Prothrombin Time INR Stat Troponin & CK Cardiac Panel Stat 03/21/19 10:22 B Type Natriuretic Peptide Stat Discontinued Medications Furosemide (Lasix) 20 mg IV NOW ONE Stop: 03/21/19 11:38 Last Admin: 03/21/19 11:51 Dose: 20 mg Documented by: SAMANTHA Consultations Consultation #1: Dr. Naik, updated patient's symptoms test results agrees with Lasix. She has follow-up next week. No potassium at this time. Time: 11:46 Vital Signs Vital signs: Vital Signs - 8 hr 03/21/19 11:35 03/21/19 11:57 03/21/19 12:08 Pulse Rate 71 83 79 Respiratory Rate 22 16 24 Blood Pressure [Left Arm] 104/62 100/71 100/61 Pulse Oximetry 93 96 96 03/21/19 12:57 03/21/19 13:00 Pulse Rate 78 85 Respiratory Rate 18 23 Blood Pressure [Left Arm] 101/69 101/69 Pulse Oximetry 96 99 MDM - Chest Pain Lab Data Attestation: I reviewed the patient's lab results. Result diagrams: 03/21/19 10:20 03/21/19 10:20 Labs: Lab Results 03/21/19 03/21/19 03/21/19 Range/Units 10:20 10:20 10:20 WBC 8.6 (4.5-11.0) X10^3/uL RBC 4.37 (4.0-5.2) X10^6/uL Hgb 13.2 (12.0-16.0) g/dL Hct 40.1 (36-46) % MCV 91.7 (80-100) fL MCH 30.2 (26-34) PG MCHC 33.0 (30-36) % RDW 13.6 (11.6-14.8) % Plt Count 271 (150-400) X10^3/uL Neut % (Auto) 76.2 H (50-75) % Lymph % (Auto) 15.3 L (25-40) % [place] % (Auto) 7.3 (3-14) % Eos % (Auto) 0.4 L (2-4) % Baso % (Auto) 0.8 (0-2) % Neut # (Auto) 6500 (1333-6074) /uL Lymph # (Auto) 1300 (1306-1377) /uL [place] # (Auto) 600 (0-900) /uL Eos # (Auto) 0 (0-450) /uL Baso # (Auto) 100 (0-100) /uL PT 16.3 H (10.1-12.7) SECONDS INR 1.4 H (0.9-1.3) APTT 34 (26.4-36.2) SECONDS Sodium 138 (137-145) mmol/L Potassium 4.4 (3.4-5.1) mmol/L Chloride 103 (98-107) mmol/L Carbon Dioxide 25 (22-32) mmol/L BUN 22 H (7-17) mg/dL Creatinine 0.70 (0.52-1.04) mg/dL Estimated GFR > 60.0 (>60) mL/min BUN/Creatinine Ratio 31.4 H (6-22) Glucose 136 H (80-110) mg/dL Calcium 9.3 (8.4-10.2) mg/dL Total Bilirubin 0.9 (0.2-1.3) mg/dL AST 156 H (14-36) IU/L ALT 191 H (<35) IU/L Alkaline Phosphatase 132 H D (38-126) U/L Total Creatine Kinase 39 (30-135) U/L CK-MB (CK-2) TNP CK-MB (CK-2) Rel Index TNP Troponin I 0.012 (0.01-0.034) ng/mL B-Natriuretic Peptide (<100) Total Protein 6.9 (6.3-8.2) g/dL Albumin 4.1 (3.5-5.0) g/dL Globulin 2.8 (1.7-4.1) g/dL Albumin/Globulin Ratio 1.5 (1.0-2.8) Lipase 53 (23-300) U/L 03/21/ Range/Units 10:22 WBC (4.5-11.0) X10^3/uL RBC (4.0-5.2) X10^6/uL Hgb (12.0-16.0) g/dL Hct (36-46) % MCV (80-100) fL MCH (26-34) PG MCHC (30-36) % RDW (11.6-14.8) % Plt Count (150-400) X10^3/uL Neut % (Auto) (50-75) % Lymph % (Auto) (25-40) % [place] % (Auto) (3-14) % Eos % (Auto) (2-4) % Baso % (Auto) (0-2) % Neut # (Auto) (4783-8488) /uL Lymph # (Auto) (3183-4396) /uL [place] # (Auto) (0-900) /uL Eos # (Auto) (0-450) /uL Baso # (Auto) (0-100) /uL PT (10.1-12.7) SECONDS INR (0.9-1.3) APTT (26.4-36.2) SECONDS Sodium (137-145) mmol/L Potassium (3.4-5.1) mmol/L Chloride (98-107) mmol/L Carbon Dioxide (22-32) mmol/L BUN (7-17) mg/dL Creatinine (0.52-1.04) mg/dL Estimated GFR (>60) mL/min BUN/Creatinine Ratio (6-22) Glucose (80-110) mg/dL Calcium (8.4-10.2) mg/dL Total Bilirubin (0.2-1.3) mg/dL AST (14-36) IU/L ALT (<35) IU/L Alkaline Phosphatase (38-126) U/L Total Creatine Kinase (30-135) U/L CK-MB (CK-2) CK-MB (CK-2) Rel Index Troponin I (0.01-0.034) ng/mL B-Natriuretic Peptide 766 H (<100) Total Protein (6.3-8.2) g/dL Albumin (3.5-5.0) g/dL Globulin (1.7-4.1) g/dL Albumin/Globulin Ratio (1.0-2.8) Lipase (23-300) U/L Imaging Data Chest x-ray: Radiologist's impression: PROCEDURE: XR CHEST 1V INDICATIONS: chest pain TECHNIQUE: One view of the chest was acquired. COMPARISON: [facility], , XR CHEST 1V, 03/18/2019, 10:05. FINDINGS: Surgical changes and devices: None. Lungs and pleura: The small bilateral pleural effusions, left greater than right with adjacent atelectasis. Scattered submegmental scarring and/or atelectasis. However, increased hazy and ground glass bilateral scattered opacities. [place] B-lines Mediastinum: Mediastinal contours appear normal. Heart size is normal. Bones and chest wall: No suspicious bony lesions. Overlying soft tissues appear unremarkable. IMPRESSION: Small bilateral pleural effusions, left greater than right. This appears progressed bilaterally since 03/18/19. Mild/developing pulmonary edema. Cannot exclude underlying infection, therefore please correlate clinically Dictated by: Barron Fall M.D. on 03/21/2019 at 10:57 ECG Data Attestation: I personally reviewed and interpreted this ECG as follows: Prior ECG tracings: available for review Interpretation: EKG 1. Atrial fibrillation rate [address] changes EKG 2. Atrial fibrillation rate 76 similar to prior MDM Narrative Medical decision making narrative: The patient is not in acute respiratory distress. Her oxygen level is well above 90. She recently had a PE study just a few days ago and was negative. She has slightly worsening left pleural effusion. He does have orthopnea she had an echocardiogram with an EF within normal limits. However I think she would benefit from diuretic. She is given a small dose 20 mg IV she has urinated atleast 2-3 times in the emergency department. I discussed with her PCP agrees with daily Lasix and close follow- up next week. She will also need to see Cardiology which she already has an appointment for on April 01. Discharge Plan Departure Patient Disposition: Home Clinical Impression: CHF (congestive heart failure) Qualifiers: Heart failure type: diastolic Heart failure chronicity: unspecified Qualified Code(s): I50.30 - Unspecified diastolic (congestive) heart failure Discharge Date/Time: 03/21/19 13:18 Instructions: DI for Heart Failure Activity Restrictions/Additional Instructions: *You have been diagnosed with probable congestive heart failure *What to do: I spoke with Dr. Arias we both agree to start you on a water pill called Lasix. Take it 1st thing in the morning it will make him urinate more frequently but will help you breathe better. His *Continue to take medications as directed Lasix 20 mg once a day in the morning--> SENT TO [facility] *Follow up with Dr. Arias on Sunday as previously scheduled and Cardiology for April 01 as previously scheduled *Return to ER if you should have increasing shortness of breath chest pain or an y new, worsening or concerning symptoms Prescriptions: New furosemide [Lasix] 20 mg tablet 20 mg PO QAM Qty: 30 RF: 0 No Action metoprolol tartrate 50 mg Tablet 50 mg PO BID Qty: 60 RF: 2 rivaroxaban 20 mg tablet 20 mg PO QPM Qty: 30 RF: 3 Referrals: Palak Naik MD [Primary Care Provider] -
[2019-03-21 10:37] LABS: PTT Partial Thromboplastin Tim 34 SECONDS (26.4-36.2)
[2019-03-21 10:39] LABS: Alanine Aminotransferase 191 IU/L (<35); Albumin 4.1 g/dL (3.5-5.0); Albumin Globulin Ratio 1.5 (1.0-2.8); Alkaline Phosphatase 132 U/L (38-126); Aspartate Aminotransferase 156 IU/L (14-36); BUN Creatinine Ratio 31.4 (6-22); Bilirubin Total 0.9 mg/dL (0.2-1.3); Blood Urea Nitrogen 22 mg/dL (7-17); Calcium 9.3 mg/dL (8.4-10.2); Carbon Dioxide 25 mmol/L (22-32); Chloride 103 mmol/L (98-107); Creatine Kinase 39 U/L (30-135); Estimated Glomerular Filt Rate > 60.0 mL/min (>60); Globulin 2.8 g/dL (1.7-4.1); Glucose 136 mg/dL (80-110); HEMOLYSIS < 15 (0-50); Lipase 53 U/L (23-300); Potassium 4.4 mmol/L (3.4-5.1); Sodium 138 mmol/L (137-145); Total Protein 6.9 g/dL (6.3-8.2)
[2019-03-21 10:51] LABS: Troponin I 0.012 ng/mL (0.01-0.034)
[2019-03-21 11:30] LABS: B Type Natriuretic Peptide 766 (<100)
[2019-03-21] MEDS: FUROSEMIDE 20 MG/2 ML VIAL IV (11:51)
== END 2019-03-21 13:18 | disposition home or self-care (01) ==
PROVIDERS: Emergency Provider Emergency Medicine; PCP Family Medicine
DX: I50.30 Unspecified diastolic (congestive) heart failure (principal); I48.91 Unspecified atrial fibrillation; J90 Pleural effusion, not elsewhere classified
CPT/HCPCS: 36415; 71045; 80053; 82550; 83690; 83880; 84484; 85025; 85610; 85730; 93005; 96374; 99283; 99285; J1940

== ENCOUNTER 2019-03-25 15:24 | Emergency (ER) | payer MEDICARE, OTHER, SELFPAY ==
[2019-03-16 19:34] VITALS: BMI 18.6
[2019-03-25 15:32] VITALS: BP 107/73; PULSE 95; RESP 18; TEMP 36.6; O2SAT 100
--- NOTE | 2019-03-25 15:40 | DI.RAD.S_ITS ---
PROCEDURE: XR CHEST 1V INDICATIONS: sob TECHNIQUE: One view of the chest was acquired. COMPARISON: [facility], CR, XR CHEST 1V, 03/21/2019, 10:21. FINDINGS: Surgical changes and devices: None. Lungs and pleura: Planning of the diaphragms is present with blunting of the bilateral costophrenic angles and partial obscuration of the diaphragms related to increased densities at the bilateral diaphragms. No definite pneumothorax is evident. The pulmonary vascular markings are slightly increased. No pneumothorax is evident. Mediastinum: Mediastinal contours appear normal. Heart size is enlarged. There is aortic atherosclerosis. Bones and chest wall: No suspicious bony lesions. Overlying soft tissues appear unremarkable. IMPRESSION: 1. Cardiomegaly with moderate vascular congestion is suspicious for developing pulmonary edema, particularly given the small bilateral effusions. 2. Superimposed atelectasis versus pneumonia at the lung bases is difficult to exclude. Dictated by: Adolfo Chapa M.D. on 03/25/2019 at 14:52 Approved by: Adolfo Chapa M.D. on 03/25/2019 at 15:08
--- NOTE | 2019-03-25 15:46 | ED.SOB ---
HPI - SOB/Dyspnea General Chief Complaint: Shortness of Breath/Dyspnea Stated Complaint: difficulty breathing, heart issues Time Seen by Provider: 03/25/19 15:27 Source: patient Mode of arrival: Ambulatory Limitations: no limitations History of Present Illness HPI Narrative: Patient is an 83-year-old female with history of atrial fibrillation, pleural effusion presenting with increasing shortness of. This is actually her 2nd ER visit this week. She to was found to have pleural effusion thought to be pulmonary edema from possible CHF she was placed on Lasix on 03/21/2019 from the emergency department. She follow-up with her PCP yesterday she continues to have increasing shortness of breath. She said the Lasix has not helped her at all. She feels like she cannot breathe. She had a PE study last week which was negative. She continues to be on Xarelto. She has no chest pain or heart palpitations. MD Complaint: shortness of breath Consistency/Duration: constant Relieving factors: nothing Exacerbating factors: nothing Related Data Home Medications Medication Instructions Recorded Confirmed Mucinex 1 tab PO PRN PRN 03/25/19 03/25/19 Previous Rx's Medication Instructions Recorded metoprolol tartrate 50 mg PO BID #60 tab 03/18/19 rivaroxaban 20 mg PO QPM #30 tab 03/18/19 furosemide [Lasix] 20 mg PO QAM #30 tab 03/21/19 Allergies Allergy/AdvReac Type Severity Reaction Status Date / Time No Known Drug Allergies Allergy Verified 03/16/19 15:02 Review of Systems Review of Systems ROS Unobtainable: All systems reviewed & are unremarkable except as noted in HPI and below Constitutional Constitutional: Denies chills, Denies fever(s), Denies lethargy and Denies weakness Eyes Eyes: Denies change in vision, Denies eye discharge, Denies irritation and Denies loss of vision ENT Ears, Nose, Mouth, and Throat: Denies change in voice, Denies neck pain and Denies sore throat Cardiovascular Cardiovascular: Denies chest pain, Denies irregular heart rhythm, Denies lightheadedness, Denies palpitations and Denies orthopnea Respiratory Respiratory: Reports as per HPI Gastrointestinal Gastrointestinal: Denies abdominal pain, Denies change in bowel habits, Denies diarrhea, Denies nausea and Denies vomiting Genitourinary Genitourinary: Denies hematuria, Denies flank pain, Denies urinary incontinence and Denies urinary urgency Musculoskeletal Musculoskeletal: Denies neck pain Integumentary/Breasts Skin/Breast: Denies pruritus, Denies erythema, Denies rash and Denies wounds Neurologic Neurologic: Denies loss of vision and Denies weakness Endocrine Endocrine: Denies palpitations Patient History Medical History Diverticular disease (Chronic) Left retinal detachment (Resolved 1996) Mitral regurgitation (Acute) Osteopenia (Chronic 2004) Right retinal detachment (Resolved 2014) Shoulder pain (Chronic 2016) Urinary incontinence (Chronic) Surgical History Anesthesia (Resolved) History of colonoscopy with polypectomy (Resolved 07/05/17) History of colonoscopy with polypectomy (Resolved ~2012) History of non-cataract eye surgery (Resolved 1996) History of non-cataract eye surgery (Resolved 2014) Status post rotator cuff repair (Resolved 2001) Family History Mother Cancer Multiple myeloma Father Silicosis Social History household members: none Smoking Status: Never smoker alcohol intake frequency: a few times a month Substance Use Type: does not use Exam Initial Vital Signs Initial Vital Signs: Vital Signs Temperature 97.9 F 03/25/19 15:32 Pulse Rate 95 H 03/25/19 15:32 Respiratory Rate 18 03/25/19 15:32 Blood Pressure 107/73 03/25/19 15:32 Pulse Oximetry 100 03/25/19 15:32 GENERAL: Alert anxious well-appearing elderly female HEENT: Head atraumatic,EOMI, pupils reactive, face symmetric, mucous membranes CARDIOVASCULAR: Irregularly irregular RESPIRATORY: Decreased breath sounds at bases more left than right no respiratory distress speaks in full sentences ABDOMEN: Soft, nontender. Normoactive bowel sounds all 4 quadrants. No guarding or rebound. EXTREMITIES: Normal range of motion, no clubbing or edema. Neurovascularly intact NEUROLOGICAL: Alert and oriented x4.Normal gait and speech. Cranial nerves II through XII grossly intact. SKIN: Warm, dry, no laceration, no petechiae, no rashes or lesions. Course Orders Ordered: Discontinued Medications Furosemide (Lasix) 40 mg IV NOW ONE Stop: 03/25/19 16:21 Last Admin: 03/25/19 16:30 Dose: 40 mg Documented by: SCANAPO Consultations Consultation #1: Dr. Naik, updated on patient's symptoms test results, recommends increasing Lasix to 40 mg once a day. Has an appoint with Cardiology on April 01. At this time no need for admission criteria Vital Signs Vital signs: Vital Signs - 8 hr 03/25/19 15:32 03/25/19 16:00 03/25/19 17:30 Temperature 97.9 F Pulse Rate 95 H 111 H 101 H Respiratory Rate 18 22 18 Blood Pressure 107/73 Blood Pressure [Right Arm] 104/77 107/73 Pulse Oximetry 100 96 96 03/25/19 18:34 03/25/19 18:40 Temperature Pulse Rate 121 H 101 H Respiratory Rate 20 16 Blood Pressure Blood Pressure [Right Arm] 116/74 Pulse Oximetry 91 97 MDM - SOB/Dyspnea Lab Data Attestation: I reviewed the patient's lab results. Result diagrams: 03/25/19 15:40 03/25/19 15:40 Labs: Lab Results 03/25/19 03/25/19 03/25/19 Range/Units 15:40 15:40 15:40 WBC 9.1 (4.5-11.0) X10^3/uL RBC 4.15 (4.0-5.2) X10^6/uL Hgb 12.9 (12.0-16.0) g/dL Hct 37.6 (36-46) % MCV 90.7 (80-100) fL MCH 31.1 (26-34) PG MCHC 34.3 (30-36) % RDW 13.8 (11.6-14.8) % Plt Count 288 (150-400) X10^3/uL Neut % (Auto) 72.7 (50-75) % Lymph % (Auto) 18.6 L (25-40) % [place] % (Auto) 7.1 (3-14) % Eos % (Auto) 0.6 L (2-4) % Baso % (Auto) 1.0 (0-2) % Neut # (Auto) 6600 (8206-0417) /uL Lymph # (Auto) 1700 (5781-7080) /uL [place] # (Auto) 600 (0-900) /uL Eos # (Auto) 100 (0-450) /uL Baso # (Auto) 100 (0-100) /uL PT 15.9 H (10.1-12.7) SECONDS INR 1.4 H (0.9-1.3) APTT 33 (26.4-36.2) SECONDS Sodium (137-145) mmol/L Potassium (3.4-5.1) mmol/L Chloride (98-107) mmol/L Carbon Dioxide (22-32) mmol/L BUN (7-17) mg/dL Creatinine (0.52-1.04) mg/dL Estimated GFR (>60) mL/min BUN/Creatinine Ratio (6-22) Glucose (80-110) mg/dL Lactate (0.7-2.1) mmol/L Calcium (8.4-10.2) mg/dL Total Bilirubin (0.2-1.3) mg/dL AST (14-36) IU/L ALT (<35) IU/L Alkaline Phosphatase (38-126) U/L Total Creatine Kinase 38 (30-135) U/L CK-MB (CK-2) TNP CK-MB (CK-2) Rel Index TNP Troponin I < 0.012 (0.01-0.034) ng/mL B-Natriuretic Peptide 814 H (<100) Total Protein (6.3-8.2) g/dL Albumin (3.5-5.0) g/dL Globulin (1.7-4.1) g/dL Albumin/Globulin Ratio (1.0-2.8) Procalcitonin (<0.5) ng/mL Urine RBC (0-5/HPF) Urine WBC (0-5/HPF) Ur Squamous Epith Cells (0-5/HPF) Urine Bacteria (None) Ur Culture Indicated? 03/25/19 03/25/19 03/25/19 Range/Units 15:40 15:40 15:57 WBC (4.5-11.0) X10^3/uL RBC (4.0-5.2) X10^6/uL Hgb (12.0-16.0) g/dL Hct (36-46) % MCV (80-100) fL MCH (26-34) PG MCHC (30-36) % RDW (11.6-14.8) % Plt Count (150-400) X10^3/uL Neut % (Auto) (50-75) % Lymph % (Auto) (25-40) % [place] % (Auto) (3-14) % Eos % (Auto) (2-4) % Baso % (Auto) (0-2) % Neut # (Auto) (6494-1006) /uL Lymph # (Auto) (9258-7703) /uL [place] # (Auto) (0-900) /uL Eos # (Auto) (0-450) /uL Baso # (Auto) (0-100) /uL PT (10.1-12.7) SECONDS INR (0.9-1.3) APTT (26.4-36.2) SECONDS Sodium 134 L (137-145) mmol/L Potassium 4.2 (3.4-5.1) mmol/L Chloride 100 (98-107) mmol/L Carbon Dioxide 23 (22-32) mmol/L BUN 25 H (7-17) mg/dL Creatinine 0.70 (0.52-1.04) mg/dL Estimated GFR > 60.0 (>60) mL/min BUN/Creatinine Ratio 35.7 H (6-22) Glucose 125 H (80-110) mg/dL Lactate 1.3 (0.7-2.1) mmol/L Calcium 9.4 (8.4-10.2) mg/dL Total Bilirubin 0.8 (0.2-1.3) mg/dL AST 64 H (14-36) IU/L ALT 192 H (<35) IU/L Alkaline Phosphatase 169 H (38-126) U/L Total Creatine Kinase (30-135) U/L CK-MB (CK-2) CK-MB (CK-2) Rel Index Troponin I (0.01-0.034) ng/mL B-Natriuretic Peptide (<100) Total Protein 6.8 (6.3-8.2) g/dL Albumin 4.0 (3.5-5.0) g/dL Globulin 2.8 (1.7-4.1) g/dL Albumin/Globulin Ratio 1.4 (1.0-2.8) Procalcitonin < 0.05 (<0.5) ng/mL Urine RBC (0-5/HPF) Urine WBC (0-5/HPF) Ur Squamous Epith Cells (0-5/HPF) Urine Bacteria (None) Ur Culture Indicated? 03/25/19 Range/Units 17:30 WBC (4.5-11.0) X10^3/uL RBC (4.0-5.2) X10^6/uL Hgb (12.0-16.0) g/dL Hct (36-46) % MCV (80-100) fL MCH (26-34) PG MCHC (30-36) % RDW (11.6-14.8) % Plt Count (150-400) X10^3/uL Neut % (Auto) (50-75) % Lymph % (Auto) (25-40) % [place] % (Auto) (3-14) % Eos % (Auto) (2-4) % Baso % (Auto) (0-2) % Neut # (Auto) (1549-1941) /uL Lymph # (Auto) (8763-6661) /uL [place] # (Auto) (0-900) /uL Eos # (Auto) (0-450) /uL Baso # (Auto) (0-100) /uL PT (10.1-12.7) SECONDS INR (0.9-1.3) APTT (26.4-36.2) SECONDS Sodium (137-145) mmol/L Potassium (3.4-5.1) mmol/L Chloride (98-107) mmol/L Carbon Dioxide (22-32) mmol/L BUN (7-17) mg/dL Creatinine (0.52-1.04) mg/dL Estimated GFR (>60) mL/min BUN/Creatinine Ratio (6-22) Glucose (80-110) mg/dL Lactate (0.7-2.1) mmol/L Calcium (8.4-10.2) mg/dL Total Bilirubin (0.2-1.3) mg/dL AST (14-36) IU/L ALT (<35) IU/L Alkaline Phosphatase (38-126) U/L Total Creatine Kinase (30-135) U/L CK-MB (CK-2) CK-MB (CK-2) Rel Index Troponin I (0.01-0.034) ng/mL B-Natriuretic Peptide (<100) Total Protein (6.3-8.2) g/dL Albumin (3.5-5.0) g/dL Globulin (1.7-4.1) g/dL Albumin/Globulin Ratio (1.0-2.8) Procalcitonin (<0.5) ng/mL Urine RBC None seen (0-5/HPF) Urine WBC 1-5/hpf (0-5/HPF) Ur Squamous Epith Cells 0-1 /hpf (0-5/HPF) Urine Bacteria Occasional (0-1) (None) Ur Culture Indicated? Specimen cultured Urine Dip Bedside Urine Glucose Negative Bedside Urine Bilirubin - Negative Bedside Urine Ketone - Negative Urine Specific [place] 1.010 Bedside Urine Occult Blood - Negative Bedside Urine pH 6.0 Bedside Urine Protein - Negative Bedside Urine Urobilinogen - Negative Bedside Urine Nitrite - Negative Bedside Urine Leukocytes +/- 15 Esterase Imaging Data Chest x-ray: Radiologist's impression: PROCEDURE: XR CHEST 1V INDICATIONS: sob TECHNIQUE: One view of the chest was acquired. COMPARISON: [facility], , XR CHEST 1V, 03/21/2019, 10:21. FINDINGS: Surgical changes and devices: None. Lungs and pleura: Planning of the diaphragms is present with blunting of the bilateral costophrenic angles and partial obscuration of the diaphragms related to increased densities at the bilateral diaphragms. No definite pneumothorax is evident. The pulmonary vascular markings are slightly increased. No pneumothorax is evident. Mediastinum: Mediastinal contours appear normal. Heart size is enlarged. There is aortic atherosclerosis. Bones and chest wall: No suspicious bony lesions. Overlying soft tissues appear unremarkable. IMPRESSION: 1. Cardiomegaly with moderate vascular congestion is suspicious for developing pulmonary edema, particularly given the small bilateral effusions. 2. Superimposed atelectasis versus pneumonia at the lung bases is difficult to exclude. Dictated by: Adolfo Chapa M.D. on 03/25/2019 at 14:52 CT scan - chest: Radiologist's impression: PROCEDURE: CT ANGIO CHEST PE PROTOCOL INDICATIONS: sob TECHNIQUE: After the administration of intravenous contrast, 2 mm thick sections acquired from the pulmonary apices to the posterior costophrenic angles. 3-dimensional maximum intensity projection (MIP) coronal and sagittal reformats were then acquired through the thorax. For radiation dose reduction, the following was used: automated exposure control, adjustment of mA and/or kV according to patient size. COMPARISON: [facility], CT, CT ANGIO CHEST PE PROTOCOL, 03/18/2019, 13:22. FINDINGS: Image quality: Excellent. Pulmonary arteries: Pulmonary arteries are normal in size, and demonstrate no intraluminal filling defects to suggest central pulmonary embolism. Lungs and pleura: Mild bilateral pleural effusions with areas of superimposed consolidation. These have increased compared to prior exam. Mediastinum: Heart size is enlarged a, without pericardial effusion. Borderline mediastinal and hilar adenopathy is present. Thoracic aorta is normal in caliber and enhancement. Esophagus is normal in caliber, without hiatal hernia. Bones and chest wall: No suspicious bony lesions. Ribs and thoracic spine appear intact throughout. Thyroid gland is unremarkable. No axillary or supraclavicular adenopathy. Abdomen: Visualized upper abdominal solid organs appear normal in the early arterial phase of enhancement. IMPRESSION: 1. Bilateral effusions with areas consolidation which could represent pneumonia and/or atelectasis. These have increased compared to prior exam. 2. Borderline mediastinal adenopathy which could be reactive in nature. Dictated by: Yi Olivier M.D. on 03/25/2019 at 17:36 ECG Data Attestation: I personally reviewed and interpreted this ECG as follows: Prior ECG tracings: available for review Interpretation: Atrial fibrillation rate [address] changes no T-wave inversions similar to previous EKG MDM Narrative Medical decision making narrative: Patient speaks in full sentences without any difficulty. At rest she has an oxygen level of 96-97%. X-ray and CT remain ultimately stable. Slight increase in BNP up to 800. After discussion with PCP recommend increasing Lasix to 40 mg. Patient said he has but she actually did not urinate very much with 20 mg of Lasix. She is given 40 in the ED and she says she has urinated at least 3 times. Ambulation trial patient's O2 was 90-91% heart rate increased to 130 however at rest decreased again to 108. She has no fever leukocytosis or signs of infection. She likely was not responding to Lasix. Will increase her Lasix to 40 mg once daily, close follow-up. I did discuss with patient and family strict return precautions and may require admission next time. Discharge Plan Departure Patient Disposition: Home Clinical Impression: Atrial fibrillation with rapid ventricular response, Pleural effusion Discharge Date/Time: 03/25/19 19:00 Activity Restrictions/Additional Instructions: *You have been diagnosed with a pleural effusion, possible congestive heart failure *What to do: At this time no need to stay in the hospital. *Continue to take medications as directed Increase Lasix to 40 mg once daily in the morning *Follow up with your primary care provider in 2-3 days *Return to ER if you should have increasing shortness of breath chest pain her palpitation or any new, worsening or concerning symptoms Prescriptions: No Action furosemide [Lasix] 20 mg tablet 20 mg PO QAM Qty: 30 RF: 0 Mucinex 1 tab PO PRN PRN (Reason: mucous in chest) RF: 0 metoprolol tartrate 50 mg Tablet 50 mg PO BID Qty: 60 RF: 2 rivaroxaban 20 mg tablet 20 mg PO QPM Qty: 30 RF: 3 Referrals: Palak Naik MD [Primary Care Provider] -
[2019-03-25 15:56] LABS: INR 1.4 (0.9-1.3); Prothrombin Time 15.9 SECONDS (10.1-12.7)
[2019-03-25 15:59] LABS: PTT Partial Thromboplastin Tim 33 SECONDS (26.4-36.2)
[2019-03-25 16:00] VITALS: BP 104/77; PULSE 111; RESP 22; O2SAT 96
[2019-03-25 16:00] LABS: Add Manual Diff / Slide Review NO; Basophils Absolute Auto 100 /uL (0-100); Eosinophils Absolute Auto 100 /uL (0-450); Eosinophils Percent Auto 0.6 % (2-4); Hematocrit 37.6 % (36-46); Hemoglobin 12.9 g/dL (12.0-16.0); Lymphocytes Absolute Auto 1700 /uL (1100-4500); Lymphocytes Percent Auto 18.6 % (25-40); Mean Corpuscular HGB Conc 34.3 % (30-36); Mean Corpuscular Hemoglobin 31.1 PG (26-34); Mean Corpuscular Volume 90.7 fL (80-100); Monocytes Absolute Auto 600 /uL (0-900); Monocytes Percent Auto 7.1 % (3-14); Neutrophils Absolute Auto 6600 /uL (1500-7000); Neutrophils Percent Auto 72.7 % (50-75); Platelet Count 288 X10^3/uL (150-400); Red Blood Cell Count 4.15 X10^6/uL (4.0-5.2); Red Cell Distribution Width 13.8 % (11.6-14.8); White Blood Cell Count 9.1 X10^3/uL (4.5-11.0)
[2019-03-25 16:05] LABS: Alanine Aminotransferase 192 IU/L (<35); Albumin Globulin Ratio 1.4 (1.0-2.8); Alkaline Phosphatase 169 U/L (38-126); Aspartate Aminotransferase 64 IU/L (14-36); BUN Creatinine Ratio 35.7 (6-22); Bilirubin Total 0.8 mg/dL (0.2-1.3); Blood Urea Nitrogen 25 mg/dL (7-17); Calcium 9.4 mg/dL (8.4-10.2); Carbon Dioxide 23 mmol/L (22-32); Chloride 100 mmol/L (98-107); Estimated Glomerular Filt Rate > 60.0 mL/min (>60); Globulin 2.8 g/dL (1.7-4.1); Glucose 125 mg/dL (80-110); HEMOLYSIS < 15 (0-50); Potassium 4.2 mmol/L (3.4-5.1); Sodium 134 mmol/L (137-145); Total Protein 6.8 g/dL (6.3-8.2)
[2019-03-25 16:06] LABS: B Type Natriuretic Peptide 814 (<100); Creatine Kinase 38 U/L (30-135)
[2019-03-25 16:16] LABS: Procalcitonin < 0.05 ng/mL (<0.5)
[2019-03-25 16:16] LABS: Lactate (Lactic Acid) 1.3 mmol/L (0.7-2.1)
[2019-03-25 16:19] LABS: Troponin I < 0.012 ng/mL (0.01-0.034)
--- NOTE | 2019-03-25 16:20 | DI.CT.S_ITS ---
PROCEDURE: CT ANGIO CHEST PE PROTOCOL INDICATIONS: sob TECHNIQUE: After the administration of intravenous contrast, 2 mm thick sections acquired from the pulmonary apices to the posterior costophrenic angles. 3-dimensional maximum intensity projection (MIP) coronal and sagittal reformats were then acquired through the thorax. For radiation dose reduction, the following was used: automated exposure control, adjustment of mA and/or kV according to patient size. COMPARISON: [facility], CT, CT ANGIO CHEST PE PROTOCOL, 03/18/2019, 13:22. FINDINGS: Image quality: Excellent. Pulmonary arteries: Pulmonary arteries are normal in size, and demonstrate no intraluminal filling defects to suggest central pulmonary embolism. Lungs and pleura: Mild bilateral pleural effusions with areas of superimposed consolidation. These have increased compared to prior exam. Mediastinum: Heart size is enlarged a, without pericardial effusion. Borderline mediastinal and hilar adenopathy is present. Thoracic aorta is normal in caliber and enhancement. Esophagus is normal in caliber, without hiatal hernia. Bones and chest wall: No suspicious bony lesions. Ribs and thoracic spine appear intact throughout. Thyroid gland is unremarkable. No axillary or supraclavicular adenopathy. Abdomen: Visualized upper abdominal solid organs appear normal in the early arterial phase of enhancement. IMPRESSION: 1. Bilateral effusions with areas consolidation which could represent pneumonia and/or atelectasis. These have increased compared to prior exam. 2. Borderline mediastinal adenopathy which could be reactive in nature. Dictated by: Yi Olivier M.D. on 03/25/2019 at 17:36 Approved by: Yi Olivier M.D. on 03/25/2019 at 17:43
[2019-03-25] MEDS: FUROSEMIDE 40 MG/4 ML VIAL IV (16:30)
[2019-03-25 17:30] VITALS: BP 107/73; PULSE 101; RESP 18; O2SAT 96
[2019-03-25 17:49] LABS: RBC Urine None Seen (0-5/HPF)
[2019-03-25 18:01] LABS: Squamous Epithelial Cell Urine 0-1 /HPF (0-5/HPF); WBC Urine 1-5/HPF (0-5/HPF)
[2019-03-25 18:02] LABS: Bacteria Urine Occasional (0-1); Culture Indicated Urine Specimen Cultured
[2019-03-25 18:34] VITALS: PULSE 121; RESP 20; O2SAT 91
[2019-03-25 18:40] VITALS: BP 116/74; PULSE 101; RESP 16; O2SAT 97
== END 2019-03-25 19:00 | disposition home or self-care (01) ==
PROVIDERS: Emergency Provider Emergency Medicine; Family Provider Family Medicine; PCP Family Medicine
DX: I48.20 Chronic atrial fibrillation, unspecified (principal); J90 Pleural effusion, not elsewhere classified
CPT/HCPCS: 36415; 71045; 71275; 80053; 81003; 81015; 82550; 83605; 83880; 84145; 84484; 85025; 85610; 85730; 87086; 93005; 96374; 99283; 99285; J1940; Q9967

== ENCOUNTER → 2019-05-09 10:24 | Outpatient (ROUT) | payer MEDICARE, OTHER, SELFPAY ==
[2019-03-16 19:34] VITALS: BMI 18.6
[2019-05-09 10:41] LABS: INR 1.1 (0.9-1.3); Prothrombin Time 13.2 SECONDS (10.1-12.7)
== END ==
PROVIDERS: Family Provider Family Medicine; PCP Family Medicine; Visit Provider Internal Medicine
DX: Z79.899 Other long term (current) drug therapy (principal)
CPT/HCPCS: 85610

== ENCOUNTER → 2020-01-16 12:15 | Outpatient (CLI) | payer MEDICARE, SELFPAY ==
[2019-03-16 19:34] VITALS: BMI 18.6
--- NOTE | 2020-01-16 12:16 | DI.RAD.S_ITS ---
PROCEDURE: XR HAND LT MIN 3V INDICATIONS: left hand pain, weakness TECHNIQUE: 3 views of the hand(s) acquired. COMPARISON: None. FINDINGS: Bones: No fractures or dislocations. Carpal bones are normally aligned. No suspicious bony lesions. Soft tissues: No suspicious soft tissue calcifications. 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 Dictated by: Matt Nation M.D. on 01/16/2020 at 14:47 Approved by: Matt Nation M.D. on 01/16/2020 at 14:48
== END ==
PROVIDERS: Family Provider Family Medicine; PCP Family Medicine; Referring Provider Family Medicine; Visit Provider Family Medicine
DX: M79.642 Pain in left hand (principal)
CPT/HCPCS: 73130

== ENCOUNTER → 2020-01-18 12:58 | Outpatient (CLI) | payer MEDICARE, SELFPAY ==
[2019-03-16 19:34] VITALS: BMI 18.6
[2020-01-19 14:36] LABS: COVID19 Sendout Not Detected (Not Detect)
== END ==
PROVIDERS: Family Provider Family Medicine; PCP Family Medicine; Visit Provider Physician Assistant
DX: Z11.59 Encounter for screening for other viral diseases (principal)
CPT/HCPCS: 87635

== ENCOUNTER 2020-03-15 10:30 | Outpatient (RCR) | payer MEDICARE, SELFPAY ==
[2019-03-16 19:34] VITALS: BMI 18.6
== END 2020-03-16 13:19 | disposition home or self-care (01) ==
LOC: CAR 10:30
PROVIDERS: Family Provider Family Medicine; PCP Family Medicine; Referring Provider Family Medicine; Visit Provider Family Medicine
DX: Z95.2 Presence of prosthetic heart valve (principal)
CPT/HCPCS: 93798

== ENCOUNTER → 2020-05-28 15:51 | Outpatient (CLI) | payer MEDICARE, SELFPAY ==
[2019-03-16 19:34] VITALS: BMI 18.6
[2020-05-28] MEDS: COVID-19 VACC #1, MRNA(MOD) 100 MCG/0.5 ML VIAL IM (16:17)
== END ==
PROVIDERS: Family Provider Family Medicine; PCP Family Medicine; Visit Provider Internal Medicine
DX: Z23 Encounter for immunization (principal)
CPT/HCPCS: 0011A; 91301

== ENCOUNTER 2020-06-21 10:30 | Outpatient (RCR) | payer MEDICARE, SELFPAY ==
[2019-03-16 19:34] VITALS: BMI 18.6
== END 2020-06-21 11:30 ==
LOC: CAR 10:30
PROVIDERS: Family Provider Family Medicine; PCP Family Medicine; Referring Provider Family Medicine; Visit Provider Family Medicine
DX: Z95.2 Presence of prosthetic heart valve (principal)
CPT/HCPCS: 93798

== ENCOUNTER → 2020-06-25 15:32 | Outpatient (CLI) | payer MEDICARE, SELFPAY ==
[2019-03-16 19:34] VITALS: BMI 18.6
[2020-06-25] MEDS: COVID-19 VACC #2, MRNA(MOD) 100 MCG/0.5 ML VIAL IM (15:36)
== END ==
PROVIDERS: Family Provider Family Medicine; PCP Family Medicine; Visit Provider Internal Medicine
DX: Z23 Encounter for immunization (principal)
CPT/HCPCS: 0012A; 91301

== ENCOUNTER → 2021-03-10 09:41 | Outpatient (CLI) | payer MEDICARE, SELFPAY ==
[2019-03-16 19:34] VITALS: BMI 18.6
[2021-03-10 11:52] LABS: BUN Creatinine Ratio 29.9 (6-22); Blood Urea Nitrogen 20 mg/dL (7-17); Calcium 9.7 mg/dL (8.4-10.2); Carbon Dioxide 27 mmol/L (22-32); Chloride 102 mmol/L (98-107); Estimated Glomerular Filt Rate > 60.0 mL/min (>60); Glucose 97 mg/dL (80-110); HEMOLYSIS < 15 (0-50); Potassium 4.6 mmol/L (3.4-5.1); Sodium 138 mmol/L (137-145)
== END ==
PROVIDERS: Family Provider Family Medicine; PCP Family Medicine; Referring Provider Internal Medicine; Visit Provider Internal Medicine
DX: I50.21 Acute systolic (congestive) heart failure (principal)
CPT/HCPCS: 36415; 80048

== ENCOUNTER → 2021-11-02 14:44 | Outpatient (CLI) | payer MEDICARE, SELFPAY ==
[2019-03-16 19:34] VITALS: BMI 18.6
[2021-11-02 16:02] LABS: COVID19 -Nasal RAPID Negative (Negative)
== END ==
PROVIDERS: Family Provider Family Medicine; PCP Family Medicine; Visit Provider Physician Assistant
DX: Z20.822 Contact with and (suspected) exposure to COVID-19 (principal)
CPT/HCPCS: 87635

== ENCOUNTER → 2021-11-03 14:22 | Outpatient (CLI) | payer MEDICARE, SELFPAY ==
[2019-03-16 19:34] VITALS: BMI 18.6
--- NOTE | 2021-11-03 14:23 | DI.RAD.S_ITS ---
PROCEDURE: XR CHEST 2V INDICATIONS: Persistent cough (cold sxs) Hx CHF, MV replacement;pacemaker TECHNIQUE: 2 views of the chest were acquired. COMPARISON: [facility], CR, XR CHEST 1V, 03/25/2019, 15:42. [facility], CR, XR CHEST 1V, 03/21/2019, 10:21. FINDINGS: Surgical changes and devices: Post median sternotomy and CABG. Left atrial appendage clip. Left pacemaker with right atrial and right ventricular leads. Lungs and pleura: Prominent lung volumes and pulmonary markings. No pleural effusions or pneumothorax. Mediastinum: Mediastinal contours are normal. Heart size is prominent. Bones and chest wall: No suspicious bony abnormalities. Soft tissues appear unremarkable. IMPRESSION: No conspicuous consolidation to suggest pneumonia. Advanced emphysematous change. If clinically indicated consider CT chest for further evaluation. Dictated by: Damon Banegas M.D. on 11/03/2021 at 19:21 Approved by: Damon Banegas M.D. on 11/03/2021 at 19:28
== END ==
PROVIDERS: Family Provider Family Medicine; PCP Family Medicine; Referring Provider Physician Assistant; Visit Provider Physician Assistant
DX: I50.9 Heart failure, unspecified (principal); R05.9 Cough, unspecified; Z95.0 Presence of cardiac pacemaker; Z95.2 Presence of prosthetic heart valve; Z95.1 Presence of aortocoronary bypass graft
CPT/HCPCS: 71046

== ENCOUNTER → 2022-03-21 18:48 | Outpatient (CLI) | payer MEDICARE, SELFPAY ==
[2019-03-16 19:34] VITALS: BMI 18.6
== END ==
PROVIDERS: Family Provider Family Medicine; PCP Family Medicine; Visit Provider Physician Assistant Medical
DX: J02.9 Acute pharyngitis, unspecified (principal)
CPT/HCPCS: 87070

== ENCOUNTER → 2022-03-22 11:10 | Outpatient (CLI) | payer MEDICARE, SELFPAY ==
[2019-03-16 19:34] VITALS: BMI 18.6
--- NOTE | 2022-03-22 11:12 | DI.RAD.S_ITS ---
PROCEDURE: XR CHEST 2V INDICATIONS: cough TECHNIQUE: 2 views of the chest were acquired. COMPARISON: [facility], CR, XR CHEST 2V, 11/03/2021, 14:26. [facility], CR, XR CHEST 1V, 03/25/2019, 15:42. FINDINGS: Surgical changes and devices: Left chest pacemaker. Median sternotomy wires. Lungs and pleura: The lungs appear hyperinflated, a finding that can be seen in the setting of COPD. Patchy opacity present at the left mid lung, possibly the lingula. No large pleural effusion. No pneumothorax. Mediastinum: Cardiac silhouette is enlarged as before. No definite pulmonary vascular congestion. Bones and chest wall: No suspicious bony abnormalities. Soft tissues appear unremarkable. IMPRESSION: Patchy opacity at the left mid lung could represent pneumonia in the appropriate clinical setting. Imaging follow-up to ensure resolution may be helpful, for example 6-8 weeks after completion of therapy. Dictated by: Sebastián Kang M.D. on 03/22/2022 at 18:54 Approved by: Sebastián Kang M.D. on 03/22/2022 at 18:57
--- NOTE | 2022-03-22 11:12 | DI.RAD.S_ITS ---
PROCEDURE: XR SINUS <3V INDICATIONS: cough TECHNIQUE: 3 views of the sinuses were acquired. COMPARISON: None. FINDINGS: Sinuses: Possible maxillary sinus air-fluid levels. Bones: No suspicious bony lesions. IMPRESSION: Possible air-fluid levels in the maxillary sinuses bilaterally versus artifact. CT could be obtained if clinically indicated. Dictated by: Sebastián Kang M.D. on 03/23/2022 at 12:36 Approved by: Sebastián Kang M.D. on 03/23/2022 at 12:39
== END ==
PROVIDERS: Family Provider Family Medicine; PCP Family Medicine; Referring Provider Physician Assistant Medical; Visit Provider Physician Assistant Medical
DX: R05.3 Chronic cough (principal); Z95.0 Presence of cardiac pacemaker
CPT/HCPCS: 70210; 71046

== ENCOUNTER → 2022-12-20 15:52 | Outpatient (CLI) | payer MEDICARE, SELFPAY ==
[2019-03-16 19:34] VITALS: BMI 18.6
[2022-12-20 16:15] LABS: Add Manual Diff / Slide Review NO; Basophils Absolute Auto 100 /uL (0-100); Basophils Percent Auto 0.5 % (0-2); Eosinophils Absolute Auto 0 /uL (0-450); Eosinophils Percent Auto 0.3 % (2-4); Hematocrit 38.1 % (36-46); Hemoglobin 12.4 g/dL (12.0-16.0); Lymphocytes Absolute Auto 1200 /uL (1100-4500); Lymphocytes Percent Auto 9.5 % (25-40); Mean Corpuscular HGB Conc 32.5 % (30-36); Mean Corpuscular Hemoglobin 27.9 PG (26-34); Monocytes Absolute Auto 800 /uL (0-900); Monocytes Percent Auto 6.4 % (3-14); Neutrophils Absolute Auto 10100 /uL (1500-7000); Neutrophils Percent Auto 83.3 % (50-75); Platelet Count 375 X10^3/uL (150-400); Red Blood Cell Count 4.43 X10^6/uL (4.0-5.2); Red Cell Distribution Width 13.4 % (11.6-14.8); White Blood Cell Count 12.2 X10^3/uL (4.5-11.0)
[2022-12-20 16:27] LABS: Alanine Aminotransferase 12 IU/L (<35); Albumin 3.7 g/dL (3.5-5.0); Alkaline Phosphatase 79 U/L (38-126); Aspartate Aminotransferase 14 IU/L (14-36); BUN Creatinine Ratio 22.7 (6-22); Bilirubin Total 0.5 mg/dL (0.2-1.3); Blood Urea Nitrogen 22 mg/dL (7-17); Calcium 9.3 mg/dL (8.4-10.2); Carbon Dioxide 23 mmol/L (22-32); Chloride 103 mmol/L (98-107); Estimated Glomerular Filt Rate 57 mL/min (>60); Globulin 3.6 g/dL (1.7-4.1); Glucose 125 mg/dL (80-110); HEMOLYSIS < 15 (0-50); Potassium 4.4 mmol/L (3.4-5.1); Sodium 135 mmol/L (137-145); Total Protein 7.3 g/dL (6.3-8.2)
[2022-12-20 16:28] LABS: Hemoglobin A1C% w Est Avg Glu 5.7 % (4.0-6.0)
== END ==
PROVIDERS: Family Provider Family Medicine; PCP Family Medicine; Referring Provider Family Medicine; Visit Provider Family Medicine
DX: R63.4 Abnormal weight loss (principal)
CPT/HCPCS: 36415; 80053; 83036; 85025

== ENCOUNTER 2022-12-21 01:45 | Inpatient (IN) | payer MEDICARE, SELFPAY ==
[2019-03-16 19:34] VITALS: BMI 18.6
[2022-12-21] VITALS (11 sets, daily range): BP systolic 85–127; BP diastolic 37–58; PULSE 78–102; RESP 17–18; TEMP 36.2–37; O2SAT 93–98; BMI 16.8
--- NOTE | 2022-12-21 01:55 | DI.CT.S_ITS ---
PROCEDURE: CT ABDOMEN PELVIS W CON INDICATIONS: LLQ abd pain and reported constipation TECHNIQUE: After the administration of intravenous contrast, axial sections acquired from the lung bases to the pubic symphysis. Coronal and sagittal reformats were performed. For radiation dose reduction, the following was used: automated exposure control, adjustment of mA and/or kV according to patient size. COMPARISON: None. FINDINGS: Image quality: Excellent. Lung bases: Unremarkable. Heart: Cardiomegaly, involving all 4 chambers. Pacemaker. ABDOMEN: Liver: Unremarkable. Gallbladder: Distended. Mild prominence of the gallbladder wall. Biliary ducts: The extrahepatic duct is dilated down to the level of the head of the pancreas. There is very mild central intrahepatic biliary ductal dilatation. Pancreas: Pancreatic duct is dilated to where it drains into the duodenum. There is no identification of an obstructing mass. Spleen: Unremarkable. Adrenal Glands: Unremarkable. Kidneys and Ureters: Unremarkable. Stomach and Bowel: There is a well-formed abscess cavity with a large air-fluid level in the pelvis, subjacent to the sigmoid colon. There is thickening and narrowing of the wall of the sigmoid adjacent to the abscess. Consider either perforated diverticulitis or perforated colon cancer. The abscess cavity measures approximately 2.8 x 3.5 cm. Peritoneum: No abnormal intraperitoneal fluid. No free air. Ventral Wall: No hernias. Abdominal Nodes: No retroperitoneal or mesenteric adenopathy by size criteria. Vessels: Aorta and inferior vena cava are normal in size. PELVIS: Pelvic Organs: Question hysterectomy. Bladder: Unremarkable. Pelvic Nodes: No enlarged lymph nodes. Miscellaneous: No hernias are seen. Bones: Lumbar degenerative change. No lytic or blastic bony lesions. No compression fractures. IMPRESSION: 1. Findings either representing perforated diverticulitis with prominent gas containing abscess versus sigmoid colon cancer with perforation and walled-off abscess. 2. Dilated biliary tree and dilated pancreatic duct without identification of a focal mass. Consider MRCP with without contrast for further evaluation. Comment: Final report is concordant with preliminary interpretation provided by [facility]. Comment: The possibility of the perforated colon cancer was discussed with Riana, the nurse caring for the patient on 12/21/2022 at 0756 hours period she will relay the information to Dr. Saldana, the hospitalist caring for the patient. Dictated by: Calin Irving M.D. on 12/21/2022 at 7:50 Approved by: Calin Irving M.D. on 12/21/2022 at 8:04
--- NOTE | 2022-12-21 01:56 | ED.GENADULT ---
HPI - General Adult General Chief complaint: Abdominal Pain Stated complaint: ABD Pain Time Seen by Provider: 12/21/22 01:47 Source: patient and EMS Mode of arrival: EMS History of Present Illness HPI narrative: Patient is a 87-year-old female with a history of diverticulitis and dysuria. Was seen by her primary doctor approximately 24 hours ago. States she is had off and on lower abdominal discomfort over several months. She has a history of diverticulitis. She comes in the emergency department this evening stating that she is having increasing left lower quadrant abdominal pain. She did talk with her primary doctor about this a couple days ago. She is not currently on any antibiotics. She was reporting constipation. Has been on laxatives without improvement. No vomiting. She does have some ?slight? chest discomfort. No fevers. She is also having dysuria. She was taking Tylenol at home without any improvement. Contacted EMS to bring her to the emergency department for evaluation of the symptoms. Related Data Home Medications Medication Instructions Recorded Confirmed metoprolol succinate 50 mg 50 mg PO BID 11/02/21 03/21/22 tablet,extended release 24 hr Previous Rx's Medication Instructions Recorded levofloxacin 500 mg tablet 500 mg PO DAILY #10 tabs 03/23/22 Allergies Allergy/AdvReac Type Severity Reaction Status Date / Time No Known Drug Allergies Allergy Verified 12/20/22 15:07 Review of Systems Review of Systems ROS Unobtainable: All systems reviewed & are unremarkable except as noted in HPI and below Patient History Medical History Diverticular disease Left retinal detachment (1996) Mitral regurgitation Osteopenia (2004) Right retinal detachment (2014) Shoulder pain (2016) Urinary incontinence Surgical History Anesthesia History of colonoscopy with polypectomy (07/05/17) History of colonoscopy with polypectomy (~2012) History of non-cataract eye surgery (1996) History of non-cataract eye surgery (2014) S/P left atrial appendage ligation S/P mitral valve replacement Status post rotator cuff repair (2001) Family History Mother Cancer Multiple myeloma Father Silicosis Social History household members: none Smoking Status: Never smoker second hand exposure: No alcohol intake: current substance use type: does not use Smoking Status: Never smoker alcohol intake frequency: a few times a month Substance Use Type: does not use Exam Initial Vital Signs Initial Vital Signs: Vital Signs Temperature 98.6 F 12/21/22 01:48 Pulse Rate 95 H 12/21/22 01:48 Pulse Oximetry 98 12/21/22 01:48 Const General: cooperative, well developed and No ill appearing HENMT Head: normal to inspection and normocephalic Resp Effort & Inspection: normal respiratory effort Auscultation: clear to auscultation bilaterally Cardio Rate: regular rate Rhythm: regular rhythm GI Inspection: normal to inspection and non-distended Palpation: No firm, No guarding and tender (Left lower quadrant) Skin General: no rashes or lesions noted Neuro General: patient alert, patient awake and moves all extremities Speech: speech normal Extrem General: normal to inspection and capillary refill normal Course Orders Ordered: ED Orders 12/21/22 01:47 Complete Blood Count AUTO DIFF Stat Comprehensive Metabolic Panel Stat Lactate (Lactic Acid) Stat Lipase Stat Troponin & CK Cardiac Panel Stat 12/21/22 01:55 CT abdomen pelvis w con Stat EKG-12 Lead Stat 12/21/22 02:45 Blood Culture Stat 12/21/22 04:17 Consult to General Surgery Stat 12/21/22 04:18 Consult to Physician Stat 12/21/22 04:19 Consult to Physician Urgent Hydromorphone HCl (Hydromorphone 0.5 Mg Inj) 0.5 mg IV Q2H PRN PRN Reason: Pain, Severe (7-10) Metronidazole (Flagyl) 500 mg in 100 mls @ 100 mls/hr IV NOW ONE Stop: 12/21/22 05:13 Sodium Chloride (Normal Saline 0.9%) 1,000 mls @ 125 mls/hr IV CONT JESICA Ondansetron HCl (Ondansetron 4 Mg/2 Ml Inj) 4 mg IV Q4HR PRN PRN Reason: Nausea And Vomiting Discontinued Medications Hydromorphone HCl (Hydromorphone 0.5 Mg Inj) 0.5 mg IV NOW ONE Stop: 12/21/22 03:44 Last Admin: 12/21/22 03:55 Dose: 0.5 mg Documented By: SABIHA Sodium Chloride (Normal Saline 0.9%) 1,000 mls @ 500 mls/hr IV BOLUS ONE Stop: 12/21/22 04:09 Last Admin: 12/21/22 02:57 Dose: 500 mls/hr Documented By: SABIHA Piperacillin Sod/Tazobactam (Sod 4.5 gm/ Sodium Chloride) 100 mls @ 200 mls/hr IV NOW ONE Stop: 12/21/22 02:13 Last Infusion: 12/21/22 03:20 Dose: 0 mls/hr Documented By: Admin: 12/21/22 02:50 Dose: 200 mls/hr Documented By: SUNG Morphine Sulfate (Morphine 2 Mg/Ml Inj) 2 mg IV NOW ONE Stop: 12/21/22 01:56 Last Admin: 12/21/22 02:02 Dose: 2 mg Documented By: SABIHA Morphine Sulfate (Morphine 2 Mg/Ml Inj) 2 mg IV NOW ONE Stop: 12/21/22 02:40 Last Admin: 12/21/22 02:54 Dose: 2 mg Documented By: SABIHA Ondansetron HCl (Ondansetron 4 Mg/2 Ml Inj) 4 mg IV NOW ONE Stop: 12/21/22 01:56 Last Admin: 12/21/22 02:02 Dose: 4 mg Documented By: SABIHA Vital Signs Vital signs: Vital Signs - 8 hr 12/21/22 01:53 12/21/22 01:48 12/21/22 01:49 Temperature 98.6 F 98.6 F Pulse Rate 82 95 H Respiratory Rate 17 Blood Pressure 121/58 L 127/58 L Pulse Oximetry 97 98 Oxygen Delivery Method Room Air 12/21/22 01:49 12/21/22 02:00 12/21/22 02:00 Temperature Pulse Rate 90 97 H Respiratory Rate Blood Pressure 105/56 L Pulse Oximetry 97 97 Oxygen Delivery Method 12/21/22 03:05 12/21/22 03:05 12/21/22 03:30 Temperature Pulse Rate 102 H Respiratory Rate Blood Pressure 105/52 L 107/58 L Pulse Oximetry 95 Oxygen Delivery Method Room Air 12/21/22 03:30 12/21/22 04:00 12/21/22 04:00 Temperature Pulse Rate 94 H 90 Respiratory Rate Blood Pressure 102/51 L Pulse Oximetry 97 98 Oxygen Delivery Method Room Air Room Air Medical Decision Making Medical Records Medical records reviewed: Yes I reviewed the patient's medical records. Lab Data Lab results reviewed: Yes I reviewed the patient's lab results. 12/21/22 01:47 12/21/22 01:47 Labs: Lab Results 12/21/22 12/21/22 12/21/22 Range/Units 01:47 01:47 01:47 WBC 18.2 H (4.5-11.0) X10^3/uL RBC 4.57 (4.0-5.2) X10^6/uL Hgb 12.7 (12.0-16.0) g/dL Hct 38.8 (36-46) % MCV 84.9 (80-100) fL MCH 27.9 (26-34) PG MCHC 32.9 (30-36) % RDW 13.4 (11.6-14.8) % Plt Count 394 (150-400) X10^3/uL Neut % (Auto) 82.9 H (50-75) % Lymph % (Auto) 11.3 L (25-40) % [place] % (Auto) 5.1 (3-14) % Eos % (Auto) 0.4 L (2-4) % Baso % (Auto) 0.3 (0-2) % Neut # (Auto) 72027 H (0353-3086) /uL Lymph # (Auto) 2100 (5283-0706) /uL [place] # (Auto) 900 (0-900) /uL Eos # (Auto) 100 (0-450) /uL Baso # (Auto) 0 (0-100) /uL Sodium 134 L (137-145) mmol/L Potassium 4.8 (3.4-5.1) mmol/L Chloride 100 (98-107) mmol/L Carbon Dioxide 24 (22-32) mmol/L BUN 25 H (7-17) mg/dL Creatinine 0.79 (0.52-1.04) mg/dL Estimated GFR > 60 (>60) mL/min BUN/Creatinine Ratio 31.6 H (6-22) Glucose 117 H (80-110) mg/dL Lactate 2.6 H (0.7-2.1) mmol/L Calcium 9.6 (8.4-10.2) mg/dL Total Bilirubin 0.7 (0.2-1.3) mg/dL AST 18 (14-36) IU/L ALT 13 (<35) IU/L Alkaline Phosphatase 90 (38-126) U/L Total Creatine Kinase (30-135) U/L Troponin I (0.01-0.034) ng/mL Total Protein 7.9 (6.3-8.2) g/dL Albumin 3.9 (3.5-5.0) g/dL Globulin 4.0 (1.7-4.1) g/dL Albumin/Globulin Ratio 1.0 (1.0-2.8) Lipase 49 (23-300) U/L 12/21/22 Range/Units 01:47 WBC (4.5-11.0) X10^3/uL RBC (4.0-5.2) X10^6/uL Hgb (12.0-16.0) g/dL Hct (36-46) % MCV (80-100) fL MCH (26-34) PG MCHC (30-36) % RDW (11.6-14.8) % Plt Count (150-400) X10^3/uL Neut % (Auto) (50-75) % Lymph % (Auto) (25-40) % [place] % (Auto) (3-14) % Eos % (Auto) (2-4) % Baso % (Auto) (0-2) % Neut # (Auto) (0760-3278) /uL Lymph # (Auto) (6089-1693) /uL [place] # (Auto) (0-900) /uL Eos # (Auto) (0-450) /uL Baso # (Auto) (0-100) /uL Sodium (137-145) mmol/L Potassium (3.4-5.1) mmol/L Chloride (98-107) mmol/L Carbon Dioxide (22-32) mmol/L BUN (7-17) mg/dL Creatinine (0.52-1.04) mg/dL Estimated GFR (>60) mL/min BUN/Creatinine Ratio (6-22) Glucose (80-110) mg/dL Lactate (0.7-2.1) mmol/L Calcium (8.4-10.2) mg/dL Total Bilirubin (0.2-1.3) mg/dL AST (14-36) IU/L ALT (<35) IU/L Alkaline Phosphatase (38-126) U/L Total Creatine Kinase 25 L (30-135) U/L Troponin I < 0.012 (0.01-0.034) ng/mL Total Protein (6.3-8.2) g/dL Albumin (3.5-5.0) g/dL Globulin (1.7-4.1) g/dL Albumin/Globulin Ratio (1.0-2.8) Lipase (23-300) U/L Imaging Data CT scan - abdomen/pelvis: Radiologist's Impression: Findings compatible with diverticulitis involving the sigmoid colon with pericolonic abscess measuring 2.8 x 3.5 cm Gallbladder distention, mild intrahepatic biliary ductal dilation and dilation of the pancreatic duct. Recommend contrast-enhanced MRI of the abdomen/MRCP for further evaluation Large volume stool in the colon compatible with constipation ECG Data Attestation: I personally reviewed and interpreted this ECG as follows: Prior ECG tracings: available for review Interpretation: Atrial fibrillation Ventricular rate 112 ST depressions V6 Normal axis Nonspecific ST T wave changes Similar to EKG from 03/25/2019 [facility] Narrative Medical decision making narrative: AFib on her EKG and this is similar to EKG from 2019. Patient has leukocytosis and elevated lactate. Blood cultures were obtained. Started on Zosyn. Given her cardiac history and heart failure and lack of hypotension we will hold on the 30 cc/kilogram of fluid for now. She was gently rehydrated. CT scan of the abdomen ordered. Shows diverticulitis with associated abscess. There was also gallbladder abnormalities however her LFTs and lipase and bilirubin unremarkable. I did discuss the case with Dr. De Leon on-call with General surgery about the CT scan. She recommended hospitalist admit patient given her underlying chronic medical issues. I then discuss the case with Dr. Saldana who is on-call for the patient's primary doctor who will admit for further evaluation and treatment. Discussed the need for admission with the patient. She expressed understanding and agreement. Discharge Plan Departure Patient Disposition: Admitted As Inpatient Clinical Impression: Diverticulitis of intestine with abscess, Constipation, Atrial fibrillation Admit Date/Time: 12/21/22 04:19 Admit Provider: Palak Naik
[2022-12-21 02:01] LABS: Add Manual Diff / Slide Review NO; Basophils Absolute Auto 0 /uL (0-100); Basophils Percent Auto 0.3 % (0-2); Eosinophils Absolute Auto 100 /uL (0-450); Eosinophils Percent Auto 0.4 % (2-4); Hematocrit 38.8 % (36-46); Hemoglobin 12.7 g/dL (12.0-16.0); Lymphocytes Absolute Auto 2100 /uL (1100-4500); Lymphocytes Percent Auto 11.3 % (25-40); Mean Corpuscular HGB Conc 32.9 % (30-36); Mean Corpuscular Hemoglobin 27.9 PG (26-34); Mean Corpuscular Volume 84.9 fL (80-100); Monocytes Absolute Auto 900 /uL (0-900); Monocytes Percent Auto 5.1 % (3-14); Neutrophils Absolute Auto 15100 /uL (1500-7000); Neutrophils Percent Auto 82.9 % (50-75); Platelet Count 394 X10^3/uL (150-400); Red Blood Cell Count 4.57 X10^6/uL (4.0-5.2); Red Cell Distribution Width 13.4 % (11.6-14.8); White Blood Cell Count 18.2 X10^3/uL (4.5-11.0)
[2022-12-21] MEDS: MORPHINE 2 MG/ML INJ IV ×2 (02:02→02:54)
[2022-12-21] MEDS: ONDANSETRON 4 MG/2 ML INJ IV (02:02)
[2022-12-21 02:07] LABS: Alanine Aminotransferase 13 IU/L (<35); Albumin 3.9 g/dL (3.5-5.0); Alkaline Phosphatase 90 U/L (38-126); Aspartate Aminotransferase 18 IU/L (14-36); BUN Creatinine Ratio 31.6 (6-22); Bilirubin Total 0.7 mg/dL (0.2-1.3); Blood Urea Nitrogen 25 mg/dL (7-17); Calcium 9.6 mg/dL (8.4-10.2); Carbon Dioxide 24 mmol/L (22-32); Chloride 100 mmol/L (98-107); Estimated Glomerular Filt Rate > 60 mL/min (>60); Glucose 117 mg/dL (80-110); HEMOLYSIS 27 (0-50); Lactate (Lactic Acid) 2.6 mmol/L (0.7-2.1); Lipase 49 U/L (23-300); Potassium 4.8 mmol/L (3.4-5.1); Sodium 134 mmol/L (137-145); Total Protein 7.9 g/dL (6.3-8.2)
[2022-12-21 02:08] LABS: Creatine Kinase 25 U/L (30-135)
--- NOTE | 2022-12-21 02:13 | PC.NURSE ---
Patient requesting this nurse call her son, Dheeraj, and let him know she is here in the ED. OK to leave voicemail if no answer.
[2022-12-21 02:19] LABS: Troponin I < 0.012 ng/mL (0.01-0.034)
[2022-12-21] MEDS: PIPERACILLIN/TAZO 4.5 GM in SODIUM CHLORIDE 0.9% 100 ML IV (02:50)
[2022-12-21] MEDS: SODIUM CHLORIDE 0.9% 1,000 ML 500 ML IV (02:57)
[2022-12-21 03:55] LABS: Reflexed Lactate in 2 Hours Y
[2022-12-21] MEDS: HYDROMORPHONE 0.5 MG INJ IV ×4 (03:55→15:03)
--- NOTE | 2022-12-21 04:30 | PC.NURSE ---
This nurse called patient's son Dheeraj rodriges. Unable to reach him This nurse left 2 voicemails letting him know that the patient is being admitted.
[2022-12-21 04:46] LABS: Lactate 2HR (Lactic Acid Rflx) 0.8 mmol/L (0.7-2.1)
[2022-12-21] MEDS: metroNIDAZOLE 500 MG/100 ML PIGGYBACK 100 MG IV (05:18)
[2022-12-21] MEDS: SODIUM CHLORIDE 0.9% 1,000 ML 125 ML IV ×2 (05:19→12:59)
--- NOTE | 2022-12-21 06:38 | PM.HP.1 ---
History of Present Illness History of Present Illness Date Patient Seen: 12/21/22 Time Patient Seen: 06:38 Chief complaint: ABD Pain Narrative: 87-year-old female with significant cardiac history status post mitral valve replacement and tricuspid repair persistent atrial fibrillation status post atrial appendage clipping coronary artery disease systolic congestive heart failure with ejection fraction of 35% and pacemaker placement. Patient has a history of colon polyps and diverticular disease patient lives at home by herself is planning on moving to assisted living. She is accompanied by her son at the bedside. Patient has had ongoing abdominal problems due to what she describes as diverticulitis. She will have flare up of pain that lasts for week or 2 and then it will go away for a month or 2 this has been gradually getting closer and closer together in fact she recently saw a advertising sales associate who did not recommend a colonoscopy. Over the last few days she is noticed increasing abdominal pain and discomfort which was pretty typical. She saw her primary care physician yesterday for wellness check and had her typical abdominal pain but it was increasing. He is some laboratory tests and a CT scan was ordered as an outpatient. Patient was doing well until yesterday evening when she had sudden onset of severe left lower quadrant abdominal pain. Patient then called 911 and was brought into the emergency department. She says her pain was quite severe she is never had this bad. Patient denies any significant symptoms of diarrhea or blood in her stool but she does have constipation and she is been taking MiraLax for this. She describes that she has not had fevers or chills. She has not had any chest pain or shortness of breath. She is had a lot of recent cardiac concerns and been seeing a meat counter clerk cardiothoracic surgeon up in [facility]. Today patient is complaining of abdominal pain she is a good historian. She says her pain is much more controlled she is complaining of constipation. She says she is not fevers or chills she does not have any shortness a breath or chest pain. She is not having any heartburn. Maybe a little bit of nausea but not particularly. She is not hungry. [facility] Medical History Diverticular disease Left retinal detachment (1996) Mitral regurgitation Osteopenia (2004) Right retinal detachment (2014) Shoulder pain (2016) Urinary incontinence Surgical History Anesthesia History of colonoscopy with polypectomy (07/05/17) History of colonoscopy with polypectomy (~2012) History of non-cataract eye surgery (1996) History of non-cataract eye surgery (2014) S/P left atrial appendage ligation S/P mitral valve replacement Status post rotator cuff repair (2001) Family History Mother Cancer Multiple myeloma Father Silicosis Social History household members: none Smoking Status: Never smoker second hand exposure: No alcohol intake: current substance use type: does not use Meds Home Medications and Allergies Home Medications Medication Instructions Recorded Confirmed Type metoprolol succinate 50 mg 50 mg PO BID 11/02/21 03/21/22 History tablet,extended release 24 hr levofloxacin 500 mg tablet 500 mg PO DAILY #10 tabs 03/23/22 Rx Allergies Allergy/AdvReac Type Severity Reaction Status Date / Time No Known Drug Allergies Allergy Verified 12/20/22 15:07 Exam Vital Signs (past 8 hours): - 12/21/22 01:53 12/21/22 01:48 12/21/22 01:49 Temperature 98.6 F 98.6 F Pulse Rate 82 95 H Respiratory Rate 17 Blood Pressure 121/58 L 127/58 L Pulse Oximetry 97 98 Oxygen Delivery Method Room Air 12/21/22 01:49 12/21/22 02:00 12/21/22 02:00 Temperature Pulse Rate 90 97 H Respiratory Rate Blood Pressure 105/56 L Pulse Oximetry 97 97 Oxygen Delivery Method 12/21/22 03:05 12/21/22 03:05 12/21/22 03:30 Temperature Pulse Rate 102 H Respiratory Rate Blood Pressure 105/52 L 107/58 L Pulse Oximetry 95 Oxygen Delivery Method Room Air 12/21/22 03:30 12/21/22 04:00 12/21/22 04:00 Temperature Pulse Rate 94 H 90 Respiratory Rate Blood Pressure 102/51 L Pulse Oximetry 97 98 Oxygen Delivery Method Room Air Room Air Oxygen Delivery Method Room Air Narrative Exam Narrative: Gen.: Alert oriented to person place and time HEENT: Pupils equal round and reactive or mucosa is moist neck is supple Cardio: S1-S2 irregular rate and rhythm systolic murmur present Respiratory: Lungs are clear to auscultation no wheezes and crackles normal respiratory effort Abdomen: Abdomen is soft. Patient has rebound and guarding in left lower quadrant area and diffuse abdominal tenderness no appreciable masses felt on examination Extremities: Full range of motion no appreciable weakness no cyanosis or edema. Neurologic: Grossly intact. Objective Labs 12/21/22 01:47 12/21/22 01:47 Labs: Laboratory Results - last 24 hr 12/21/22 12/21/22 12/21/22 01:47 01:47 01:47 WBC 18.2 H RBC 4.57 Hgb 12.7 Hct 38.8 MCV 84.9 MCH 27.9 MCHC 32.9 RDW 13.4 Plt Count 394 Neut % (Auto) 82.9 H Lymph % (Auto) 11.3 L [place] % (Auto) 5.1 Eos % (Auto) 0.4 L Baso % (Auto) 0.3 Neut # (Auto) 96597 H Lymph # (Auto) 2100 [place] # (Auto) 900 Eos # (Auto) 100 Baso # (Auto) 0 Sodium 134 L Potassium 4.8 Chloride 100 Carbon Dioxide 24 BUN 25 H Creatinine 0.79 Estimated GFR > 60 BUN/Creatinine Ratio 31.6 H Glucose 117 H Lactate 2.6 H Calcium 9.6 Total Bilirubin 0.7 AST 18 ALT 13 Alkaline Phosphatase 90 Total Creatine Kinase Troponin I Total Protein 7.9 Albumin 3.9 Globulin 4.0 Albumin/Globulin Ratio 1.0 Lipase 49 12/21/22 12/21/22 01:47 04:13 WBC RBC Hgb Hct MCV MCH MCHC RDW Plt Count Neut % (Auto) Lymph % (Auto) [place] % (Auto) Eos % (Auto) Baso % (Auto) Neut # (Auto) Lymph # (Auto) [place] # (Auto) Eos # (Auto) Baso # (Auto) Sodium Potassium Chloride Carbon Dioxide BUN Creatinine Estimated GFR BUN/Creatinine Ratio Glucose Lactate 0.8 Calcium Total Bilirubin AST ALT Alkaline Phosphatase Total Creatine Kinase 25 L Troponin I < 0.012 Total Protein Albumin Globulin Albumin/Globulin Ratio Lipase Assessment & Plan Assessment and plan (1) Diverticulitis of intestine with abscess: Status: Acute Plan Diverticulitis with diverticular abscess on CT scan patient will be admitted to the medical and surgical floor based on report patient's abscesses less than 4 cm which has a good outcome for medical management with IV antibiotics patient will was given Zosyn in the emergency department we will continue with piperacillin tazobactam 3 point 7 5 g IV q.6 hours. Patient's had an elevated white blood cell count on admission to the hospital and we will recheck that patient will have a surgical consultation and they were contacted in the emergency department. Patient will be kept NPO except for medications and allow for the general surgeon to determine diet recommendations. Patient's biomarkers will be monitored closely for worsening sign of infection serial abdominal exams and repeat CT scan if necessary to see if progression. Patient will be provided IV and oral pain medication for pain control currently requiring IV pain medication. Sepsis patient meets criteria for sepsis based on elevated white blood cell count tachycardia and lactate. Patient's repeat lactate is normal. Patient did not meet criteria for fluid admission because of patient's significant systolic congestive heart failure. Patient's blood pressures are little soft so we are bolusing fluids gently trying to avoid fluid overload status due to patient's significant systolic congestive heart failure. Patient has been started on appropriate antibiotics. Does not qualify at this point for blood pressure support. Atrial fibrillation patient with atrial fibrillation she is a little bit tachycardic at this time. Her metoprolol is being held because of hypotension will have to keep an eye on this. We may have to start her beta-tana backup if she becomes significantly tachycardic. And deal with her blood pressure. She is on Eliquis we will resume this at 2.5 mg a day and certainly stop it if considering surgical intervention. Systolic congestive heart failure. Patient has an ejection fraction of 35%. It is chronic. Concerns of acute fluid overload due to her sepsis and requiring fluids. At this point she may be a little bit hypervolemic. But this was is required to maintain her blood pressure. We may have to diuresis as her infection improves. Aortic and mitral valve surgery with repair and replacement. Atrial appendage procedure done as well. Has a systolic heart murmur which is not new. Pacemaker implantation. Patient has a pacemaker appears to be functioning Constipation. Due to underlying abdominal infection. Continue with MiraLax which she is been taking at home DVT prophylaxis patient on Eliquis Code status patient reminded us that she is a DNR DNI Patient will obviously be an inpatient and anticipate being here for a number of days
[2022-12-21] MEDS: SODIUM CHLORIDE 0.9% 500 ML 250 ML IV (07:00)
[2022-12-21] MEDS: polyethylene glycoL 3350 17 GM POWD.PACK PO ×2 (08:31→20:06)
[2022-12-21] MEDS: APIXABAN 5 MG TABLET 2.5 MG PO (08:31)
[2022-12-21] MEDS: PIPERACILLIN/TAZO 3.375 GM in SODIUM CHLORIDE 0.9% 100 ML IV ×3 (08:32→22:49)
--- NOTE | 2022-12-21 10:08 | CM.DANOTE ---
Addendum entered by Francoise Daugherty R.N. 12/21/22 12:43: Went ahead and initiated a face to face for home health, have not yet gone over agencies with patient. Added nursing, also, P.T, and O.T, for she may be deconditioned being here in the hospital. Original Note: DCP: Case received, EMR reviewed and met with patient. Introduced self and role. Was able to obtain information regarding patient's baseline activity status at home prior to her admission. DCP assessment completed with information currently available. Patient is an 87 year old female who admitted early this morning to the care of the hospitalist team. PCP: Dr. Naik. Payer: confirmed: [employer] Medicare. Patient came to the hospital via ambulance secondary to having lower abdominal discomfort over the last several months. Patient does have history of diverticulitis. Patient came to the ER secondary to severe left lower quadrant abdominal pain. Patient also has a cardiac history, mitral valve replacement and tricuspid repair, atrial fibrillation, and has a pacemaker. Patient was admitted for diverticulitis with diverticular abscess, and a-fib. Patient will be having a surgery consult. Met with patient in her room. Son, Dheeraj and his spouse came in afterward. Confirmed that patient resides here in [place] alone. She is independent at her baseline, and still drives. Patient has been living here in [place] for about 7 years. Prior, lived in [facility], had her home and friends, but her son wanted her to move up here closer to him. Patient is originally from [facility] [facility]. Confirmed that patient is looking in to assisted living facilities. She indicated that she has penitentiary care insurance, stated that she has been paying into it for years, but premiums have gone up, pays over $500.00 month. She is hopeful that they will pay for her to go to assisted living, she has already contacted them. [facility], she has already toured the facility. P: DCP to continue to follow for any needs. Discussed home health services, and brought this up to her son as well, may benefit with home health nurse, she will consider this. Home is the plan when stable. Francoise Daugherty RN/Machine Stonecutter Discharge Planning/Care Management CM Discharge Assessment Start: 12/21/22 10:03 Freq: Status: Active Protocol: Document 12/21/22 10:04 GUILLERMO (Rec: 12/21/22 10:08 [id number]) Discharge Planning Assessment Assigned Expressive Therapist Francoise Daugheryt RN/Machine Stonecutter Advance Directives? Yes Advance Directives on File No History Provided By Patient,Medical Record Prior Living Arrangements House Household Members none Type of transporation used prior to Drives own vehicle admit Independent with ADL's Yes Is patient alert and oriented? Yes Caregiver for Another No Barriers to Discharge No Discharge Plan Home Transportation Arrangement Patients son Referrals Initiated Other Additional Comment Discussed home health briefly Whiteboard Updated in Patient Room with Yes name and ext. # of Expressive Therapist Review Status In Process Next Review Type Continued Stay Review
--- NOTE | 2022-12-21 17:19 | P.CONS_ITS ---
History of Present Illness Consult details Date Patient Seen: 12/21/22 Time Patient Seen: 17:19 Chief complaint: ABD Pain Narrative: Anna is an 87 year old woman who presents with several weeks of left lower quadrant abdominal pain. She has had diverticulitis in the past and has required treatment with IV antibiotics in a hospital setting before. She has h ad a colonoscopy in the last several years and has had polyps removed. She reports her current pain is in left lower quadrant and is quite severe. A CT scan showed diverticulitis with contained 4 cm abscess in the left lower quadrant. She takes Eliquis. Meds Home Medications and Allergies Home Medications Medication Instructions Recorded Confirmed Type metoprolol succinate 50 mg 50 mg PO BID 11/02/21 12/21/22 History tablet,extended release 24 hr apixaban 2.5 mg tablet (Eliquis) 2.5 mg PO BID 12/21/22 12/21/22 History empagliflozin 10 mg tablet 10 mg PO DAILY 12/21/22 12/21/22 History (Jardiance) sacubitril 24 mg-valsartan 26 mg 1 tab PO BID 12/21/22 12/21/22 History tablet (Entresto) spironolactone 25 mg tablet 25 mg PO DAILY 12/21/22 12/21/22 History Allergies Allergy/AdvReac Type Severity Reaction Status Date / Time No Known Drug Allergies Allergy Verified 12/20/22 15:07 Exam Vital Signs (past 8 hours): - 12/21/22 11:00 12/21/22 16:39 Temperature 98.0 F 98.4 F Pulse Rate 78 91 H Respiratory Rate 17 Blood Pressure 100/38 L 103/41 L Pulse Oximetry 96 Oxygen Flow Rate 0 Oxygen Delivery Method Room Air Oxygen Flow Rate 0 Narrative Exam Narrative: Abdomen soft without peritoneal findings Tender to palpation left lower quadrant Objective Labs 12/21/22 01:47 12/21/22 01:47 Labs: Laboratory Results - last 24 hr 12/21/22 12/21/22 12/21/22 01:47 01:47 01:47 WBC 18.2 H RBC 4.57 Hgb 12.7 Hct 38.8 MCV 84.9 MCH 27.9 MCHC 32.9 RDW 13.4 Plt Count 394 Neut % (Auto) 82.9 H Lymph % (Auto) 11.3 L [place] % (Auto) 5.1 Eos % (Auto) 0.4 L Baso % (Auto) 0.3 Neut # (Auto) 58108 H Lymph # (Auto) 2100 [place] # (Auto) 900 Eos # (Auto) 100 Baso # (Auto) 0 Sodium 134 L Potassium 4.8 Chloride 100 Carbon Dioxide 24 BUN 25 H Creatinine 0.79 Estimated GFR > 60 BUN/Creatinine Ratio 31.6 H Glucose 117 H Lactate 2.6 H Calcium 9.6 Total Bilirubin 0.7 AST 18 ALT 13 Alkaline Phosphatase 90 Total Creatine Kinase Troponin I Total Protein 7.9 Albumin 3.9 Globulin 4.0 Albumin/Globulin Ratio 1.0 Lipase 49 12/21/22 12/21/22 01:47 04:13 WBC RBC Hgb Hct MCV MCH MCHC RDW Plt Count Neut % (Auto) Lymph % (Auto) [place] % (Auto) Eos % (Auto) Baso % (Auto) Neut # (Auto) Lymph # (Auto) [place] # (Auto) Eos # (Auto) Baso # (Auto) Sodium Potassium Chloride Carbon Dioxide BUN Creatinine Estimated GFR BUN/Creatinine Ratio Glucose Lactate 0.8 Calcium Total Bilirubin AST ALT Alkaline Phosphatase Total Creatine Kinase 25 L Troponin I < 0.012 Total Protein Albumin Globulin Albumin/Globulin Ratio Lipase PFSH Medical History Diverticular disease Left retinal detachment (1996) Mitral regurgitation Osteopenia (2004) Right retinal detachment (2014) Shoulder pain (2016) Urinary incontinence Surgical History Anesthesia History of colonoscopy with polypectomy (07/05/17) History of colonoscopy with polypectomy (~2012) History of non-cataract eye surgery (1996) History of non-cataract eye surgery (2014) S/P left atrial appendage ligation S/P mitral valve replacement Status post rotator cuff repair (2001) Family History Mother Cancer Multiple myeloma Father Silicosis Social History household members: none Tobacco & Substance Use Smoking Status: Never smoker second hand exposure: No alcohol intake: current substance use type: does not use Assessment & Plan Assessment and plan (1) Diverticulitis of intestine with abscess: Qualifiers: Diverticulitis site: large intestine Diverticulitis bleeding: without bleeding Qualified Code(s): K57.20 - Diverticulitis of large intestine with perforation and abscess without bleeding Status: Acute Plan Diverticulitis with a contained abscess recommend continuation IV antibiotics. We will discuss possibility of CT-guided drain placement into the abscess. We will hold Eliquis and check coags in anticipation of a procedure. She can be on clear liquids now but she should be NPO at midnight.
[2022-12-22] VITALS (39 sets, daily range): BP systolic 94–127; BP diastolic 39–63; PULSE 88–140; RESP 13–49; TEMP 36.3–37.5; O2SAT 83–99
[2022-12-22] MEDS: HYDROMORPHONE 0.5 MG INJ IV ×9 (00:16→23:25)
[2022-12-22 05:27] LABS: Add Manual Diff / Slide Review NO; Basophils Absolute Auto 0 /uL (0-100); Basophils Percent Auto 0.3 % (0-2); Eosinophils Absolute Auto 0 /uL (0-450); Eosinophils Percent Auto 0.1 % (2-4); Hematocrit 34.9 % (36-46); Hemoglobin 11.4 g/dL (12.0-16.0); Lymphocytes Absolute Auto 900 /uL (1100-4500); Lymphocytes Percent Auto 5.9 % (25-40); Mean Corpuscular HGB Conc 32.6 % (30-36); Mean Corpuscular Hemoglobin 27.8 PG (26-34); Mean Corpuscular Volume 85.2 fL (80-100); Monocytes Absolute Auto 900 /uL (0-900); Monocytes Percent Auto 5.9 % (3-14); Neutrophils Absolute Auto 13200 /uL (1500-7000); Neutrophils Percent Auto 87.8 % (50-75); Platelet Count 281 X10^3/uL (150-400); Red Cell Distribution Width 13.4 % (11.6-14.8)
[2022-12-22 05:33] LABS: INR 1.7 (0.9-1.3); Prothrombin Time 19.7 SECONDS (10.1-12.7)
[2022-12-22 05:36] LABS: PTT Partial Thromboplastin Tim 32 SECONDS (26-36)
[2022-12-22 05:37] LABS: Alanine Aminotransferase 8 IU/L (<35); Albumin 2.8 g/dL (3.5-5.0); Albumin Globulin Ratio 0.9 (1.0-2.8); Alkaline Phosphatase 67 U/L (38-126); Aspartate Aminotransferase 12 IU/L (14-36); Bilirubin Total 0.7 mg/dL (0.2-1.3); Blood Urea Nitrogen 13 mg/dL (7-17); Calcium 8.3 mg/dL (8.4-10.2); Carbon Dioxide 21 mmol/L (22-32); Chloride 110 mmol/L (98-107); Estimated Glomerular Filt Rate > 60 mL/min (>60); Globulin 3.2 g/dL (1.7-4.1); Glucose 115 mg/dL (80-110); HEMOLYSIS < 15 (0-50); Potassium 4.4 mmol/L (3.4-5.1); Sodium 138 mmol/L (137-145)
[2022-12-22] MEDS: PIPERACILLIN/TAZO 3.375 GM in SODIUM CHLORIDE 0.9% 100 ML IV ×3 (06:00→23:25)
--- NOTE | 2022-12-22 09:22 | P.PN_ITS ---
Subjective Subjective Date Patient Seen: 12/22/22 Interval history: The pt reports that her pain is better controlled on the Dilaudid. Morphine did not help. She didn't sleep well due to the SCDs, and feeling like her mouth was very dry all night. Exam Vital Signs (past 8 hours): - 12/22/22 05:14 12/22/22 05:39 12/22/22 08:12 Temperature 97.5 F L 97.5 F L Pulse Rate 100 H 103 H Respiratory Rate 18 18 Blood Pressure 100/39 L 100/44 L 100/50 L Pulse Oximetry 94 Oxygen Flow Rate 0 Oxygen Delivery Method Room Air Oxygen Flow Rate 0 Narrative Exam Narrative: Gen: NAD, sitting comfortably in bed, appears well CV: irregularly irregular rhythm, diastolic murmur Resp: clear to auscultation bilaterally, no wheezes or crackles Abd: soft, tender to palpation diffusely across lower quadrants with mild guarding, no rebound or rigidity, normoactive bowel sounds Ext: no edema Neuro: no gross deficits Objective Labs 12/22/22 05:06 12/22/22 05:06 Labs: Laboratory Results - last 24 hr 12/22/22 12/22/22 12/22/22 05:06 05:06 05:06 WBC 15.0 H RBC 4.10 Hgb 11.4 L Hct 34.9 L MCV 85.2 MCH 27.8 MCHC 32.6 RDW 13.4 Plt Count 281 Neut % (Auto) 87.8 H Lymph % (Auto) 5.9 L [place] % (Auto) 5.9 Eos % (Auto) 0.1 L Baso % (Auto) 0.3 Neut # (Auto) 53438 H Lymph # (Auto) 900 L [place] # (Auto) 900 Eos # (Auto) 0 Baso # (Auto) 0 PT 19.7 H INR 1.7 H APTT 32 Sodium 138 Potassium 4.4 Chloride 110 H Carbon Dioxide 21 L BUN 13 Creatinine 0.62 Estimated GFR > 60 BUN/Creatinine Ratio 21.0 Glucose 115 H Calcium 8.3 L Total Bilirubin 0.7 AST 12 L ALT 8 Alkaline Phosphatase 67 Total Protein 6.0 L Albumin 2.8 L Globulin 3.2 Albumin/Globulin Ratio 0.9 L [facility] Medical History Diverticular disease Left retinal detachment (1996) Mitral regurgitation Osteopenia (2004) Right retinal detachment (2014) Shoulder pain (2017) Urinary incontinence Surgical History Anesthesia History of colonoscopy with polypectomy (07/05/17) History of colonoscopy with polypectomy (~2012) History of non-cataract eye surgery (1996) History of non-cataract eye surgery (2014) S/P left atrial appendage ligation S/P mitral valve replacement Status post rotator cuff repair (2001) Family History Mother Cancer Multiple myeloma Father Silicosis Social History household members: none Smoking Status: Never smoker second hand exposure: No alcohol intake: current substance use type: does not use Assessment & Plan Assessment & Plan narrative: 87yo woman with systolic CHF, atrial fibrillation with pacemaker in place, CAD, aortic regurgitation, and hx of mitral valve replacement and triscuspid valve repair who presents with severe LLQ abdominal pain, found to have perforated diverticulitis with associated abscess. 1) Perforated diverticulitis with abscess: - Surgery consulted, appreciate recommendations - Considered CT-guided drain placement today, however due to pts anticoagulation radiology not comfortable completing - Continue IV Zosyn - Continue to monitor closely with serial exams. Consider repeat CT in 1-2 days to ensure improving - Dilaudid PRN for pain control 2) Sepsis: Pts BP remains stable but borderline hypotensive. Did not receive significant fluid resuscitation due to cardiac history and significant concern f or volume overload. - Continue IV antibiotics as above 3) Systolic CHF: Recent EF of 35% . Lungs sounds clear today, no evidence of volume overload at this point. - Continue to monitor closely - Holding home Spironolactone due to borderline BPs, will restart as soon as able 4) Atrial fibrillation, pacemaker in place: Currently rate controlled. Holding home Metoprolol due to borderline BP. - Held Eliquis overnight due to possible procedure this morning, will restart today - Telemetry to monitor HR, if rising will need to restart Metoprolol and consider pressure support 5) S/P Valve replacement and repair: Stable 6) Constipation: - Continue Miralax as needed 7) Dilated biliary tree and pancreatic duct: Began discussion with pt and her son regarding findings this morning. Unclear cause at this point. Pt is not all that interested in investigating further, but her son feels that we should. - Will continue further discussions as infection clears DVT ppx: Okay to stop SCDs now that back on Eliquis FEN: liquids only for now Code: DNR/DNI Dispo: Anticipate multiple additional days. Pt will likely need PT/OT prior to discharge. She and her son had been trying for placement at [facility] living prior to hospitalization.
--- NOTE | 2022-12-22 10:39 | CM.DPC ---
DCP Cont: Per MD, pt continues to need medical management and awaiting Surgeon to drain pt's abscess likely Sunday and not medically stable to discharge yet today. Per RN, pt needing increased physical assist and pt typically is independent at baseline and now 2PA and would benefit from therapies. PT/OT ordered and pending. SW met bedside with pt and Dtr davidemma Streeter and explained role and pt confirms she had been deconditioned the month leading up to hospitalization due to pain and mostly being in bed to reduce her pain. Pt and Dtr marissa confirm that her LTC insurance DID approve [facility] NATALIE and son dropped off a deposit check and initial pwk to [facility] yesterday 12/21. SW discussed PT/OT eval to determine if HH might be needed and explained their services and frequency and pt unsure if she will need HH. Pt denies any hx of SNF or HH and would like to see how she does through the weekend and also aware that if she can move right into [facility] then they can provide some assist to her as she plans to be maybe level one or two assist as needed. SW called Dorene at [facility] and confirmed she is aware of pt but they do not have roll up machine operator with pt until 12/28 next week and then likely will not have move in pwk and things all ready for pt to move in for another 2 weeks so pt will not be able to move in directly from hospital discharge. Plan: SW to follow closely for PT/OT eval and recommendations to determine if pt would benefit from HH and if safe to d/c home with family assist while awaiting move in to [facility] in the next couple weeks. VEE Sánchez
--- NOTE | 2022-12-22 11:53 | OT.IP.EVAL ---
Addendum entered and electronically signed by Chayo Childress OT 12/22/22 13:45: Send to Dr. Naik for electric signing. Original Note: Current Diagnoses Diverticulitis of large intestine with perforation and abscess without bleeding (12/21/22) Diverticulitis of intestine, part unspecified, with perforation and abscess without bleeding (12/21/22) Past Medical History (Last Reviewed 12/21/22 @ 01:57 by Dakota Sanchez DO) Diverticular disease Left retinal detachment (1996) Mitral regurgitation Osteopenia (2004) Right retinal detachment (2014) Shoulder pain (2016) Urinary incontinence Surgical History (Last Reviewed 03/21/22 @ 19:29 by Ana Horvath PA-C) Anesthesia History of colonoscopy with polypectomy (07/05/17) History of colonoscopy with polypectomy (~2012) History of non-cataract eye surgery (1996) History of non-cataract eye surgery (2014) S/P left atrial appendage ligation S/P mitral valve replacement Status post rotator cuff repair (2001) Occupational Therapy Inpatient Evaluation/Re-Eval M2 OT-IP Current Condition Start: 12/22/22 13:00 Freq: Status: Active Protocol: Document 12/22/22 11:53 [facility] (Rec: 12/22/22 13:41 [facility] [id number]) Occupational Therapy Current Condition Current Condition Evaluation Date 12/22/22 Treatment Diagnosis Perforated diverticulitis with abscess, sepsis, weakness Diagnosis Onset Date 12/21/22 M3 OT- IP Subjective and Pain Start: 12/22/22 13:00 Freq: Status: Active Protocol: Document 12/22/22 11:53 [facility] (Rec: 12/22/22 13:41 [facility] [id number]) OT- Subjective Occupational Therapy Visit Type Type Initial Evaluation Visit Start Time 11:53 Visit Stop Time 12:53 Total Visit Minutes 60 Notes OT eval completed , PT also present for PT eval. Pt having lots of pain and nurse able to give pt pain medication. Occupational Therapy Visit Comments Patient Comments Pt agreed to get up. Patient/Caregiver Goals To go home. OT Pain Assessment Pain When Pain Assessed At Rest Pain Present Pain Present Pain Reported Location LLQ Intensity 11 Scale Used Numeric (0 - 10) M4 OT- IP ADL's Start: 12/22/22 13:00 Freq: Status: Active Protocol: Document 12/22/22 11:53 [facility] (Rec: 12/22/22 13:41 [facility] [id number]) OT [id number] Comments OT Self-Feeding Comments Pt is on a clear liquid diet at this time. OT ADL-Grooming Comments OT Grooming Comments Not performed. OT ADL-Oral Care Comments Oral Care Comments Not performed. OT ADL-Dressing General Eval Lower Body Dressing Ability Maximum Assistance Areas Needing Assistance Underpants/Brief,Socks Comments OT Dressing Comments Assist to do her socks and brief. OT ADL-Toileting General Evaluation Toileting Ability Maximum Assistance Areas Needing Assistance Manage Clothing,Perform Perineal Hygiene Comments OT Toileting Comments Pt able to wipe initially and OT able to assist for completeness and tab brief management needs. OT ADL-Bathing Comments OT Bathing Comments Not performed. M5 OT- IP IADL's Start: 12/22/22 13:00 Freq: Status: Active Protocol: Document 12/22/22 11:53 [facility] (Rec: 12/22/22 13:41 [facility] [id number]) OT-Instrumental Activities of Daily Living Deficits IADL Deficits Identified Deficits Home Safety Awareness Awareness of Need for Assistance at Home Good Awareness Ability to Problem Solve Emergency Able to Problem Solve Situations M6 OT- IP Functional Cognition Start: 12/22/22 13:00 Freq: Status: Active Protocol: Document 12/22/22 11:53 [facility] (Rec: 12/22/22 13:41 [facility] [id number]) Cognitive Factors Limiting Selfcare Function Cognitive Ability Level of Alertness Alert Patient Orientation Name,Age,Birthday,Month,Date, Year,Day of Week,Place, Situation Attention Span Ability Capable of Focused Attention, Capable of Sustained Attention Ability to Follow Commands Able to Follow One Step Commands Safety Awareness No Deficits Noted Cognitive Comments Cognitive Assessment Comments Pt able to follow commands for ADl and mobility needs. Pt moves slowly. OT- Vision and Hearing OT- Hearing Assessment OT- Hearing Assessment WFL OT- Vision Assessment Vision History Blindness M7 OT- IP Mobility and Balance Start: 12/22/22 13:00 Freq: Status: Active Protocol: Document 12/22/22 11:53 [facility] (Rec: 12/22/22 13:41 [facility] [id number]) OT- Bed Mobility Assessment Supine to Sit Supine to Sit Assist Moderate Assistance OT-Transfer Assessment Sit to and From Stand Sit to and from Stand Minimal Assistance,Moderate Assistance Transfers Transfer Ability Minimal Assistance Technique Transfer Destination Bed,Bedside Commode,Chair Transfer Technique Stand Pivot Devices Transfer Assistive Devices Gait Belt,Front Wheeled Walker Comments Mobility Comments MIN/MOD to stand and HEATHER with FWW to walk to and from the bathroom with increased time. OT- Balance Assessment Sitting Balance and Reactions Static Sitting Balance Ability Fair Dynamic Sitting Balance Ability Fair Standing Balance and Reactions Static Standing Balance Ability Poor Dynamic Standing Balance Ability Poor Comments Other Balance Tests/Deviations/Treatment Pt has posterior lean while : sitting and especially for standing. M8 OT- IP Objective Assessments Start: 12/22/22 13:00 Freq: Status: Active Protocol: Document 12/22/22 11:53 [facility] (Rec: 12/22/22 13:41 [facility] [id number]) OT Gross Range of Motion Upper Extremity Range of Motion Assessment Within Functional Limits OT Strength Comments Strength Comments WFL for age and style. OT- Coordination Assessment Comments Coordination Comments Arthritic changes in her hands . OT-Muscle Tone Assessment Muscle Tone WNL Yes M9 OT- IP Assessment and Plan Start: 12/22/22 13:00 Freq: Status: Active Protocol: Document 12/22/22 11:53 [facility] (Rec: 12/22/22 13:41 [facility] [id number]) OT Summary Assessment and Plan Potential Rehabilitation Potential Good Analytic Complexity at Evaluation Moderate Summary OT Impairments Pain,Strength,Balance, Functional Mobility,Dressing, Toileting,Bathing,Toilet Transfers,Shower Transfers, Activity Tolerance Progress Towards Goals Slow Progress due to Pain,Slow Progress due to Medical Issues,Slow Progress due to Activity Tolerance Assessment Summary Pt MOD complexity and main barriers are pain, now needing assist for ADl and mobility needs. Pt awaiting possible surgery for her perforated diverticulitis with abscess. At this time pt would benefit form 24/7 assist at home with home health versus skilled rehab. Pt is cooperative and pleasant. Goals Grooming Goal Independent Dressing Goal Independent Toileting Goal Independent Bathing Goal Standby Assistance Toilet Transfer Goal Independent Shower Transfer Goal Standby Assistance Days to Meet Goals 15 Frequency of Treatment Frequency Of Treatment Once a Day Treatment Plan OT Treatment Plan ADL Training,Functional Mobility,Patient/Family Education,Discharge Planning Discharge Recommendations OT Discharge Recommendations SNF Rehab,Home vs SNF Other Discharge Recommendations Home with 24/7 assist and home health Transportation Needs at Discharge Private Vehicle,Wheelchair/ Cabulance
--- NOTE | 2022-12-22 12:44 | P.PN_ITS ---
Subjective Subjective Date Patient Seen: 12/22/22 Time Patient Seen: 12:44 Interval history: She reports continued improvement of her left lower quadrant pain over the past 24 hours. There was discussion with Interventional Radiology for percutaneous drainage of a diverticular abscess however this procedure has been canceled today due to her dose of Eliquis on December 20 per their request. Exam Vital Signs (past 8 hours): - 12/22/22 05:14 12/22/22 05:39 12/22/22 08:12 Temperature 97.5 F L 97.5 F L Pulse Rate 100 H 103 H Respiratory Rate 18 18 Blood Pressure 100/39 L 100/44 L 100/50 L Pulse Oximetry 94 Oxygen Flow Rate 0 12/22/22 12:00 Temperature 99.5 F Pulse Rate 110 H Respiratory Rate 16 Blood Pressure 114/41 L Pulse Oximetry 98 Oxygen Flow Rate 0 Oxygen Delivery Method Room Air Oxygen Flow Rate 0 Narrative Exam Narrative: General elderly woman alert oriented no acute distress Abdomen minimal tenderness within the left lower quadrant no peritonitis Objective Labs 12/22/22 05:06 12/22/22 05:06 Labs: Laboratory Results - last 24 hr 12/22/22 12/22/22 12/22/22 05:06 05:06 05:06 WBC 15.0 H RBC 4.10 Hgb 11.4 L Hct 34.9 L MCV 85.2 MCH 27.8 MCHC 32.6 RDW 13.4 Plt Count 281 Neut % (Auto) 87.8 H Lymph % (Auto) 5.9 L [place] % (Auto) 5.9 Eos % (Auto) 0.1 L Baso % (Auto) 0.3 Neut # (Auto) 39690 H Lymph # (Auto) 900 L [place] # (Auto) 900 Eos # (Auto) 0 Baso # (Auto) 0 PT 19.7 H INR 1.7 H APTT 32 Sodium 138 Potassium 4.4 Chloride 110 H Carbon Dioxide 21 L BUN 13 Creatinine 0.62 Estimated GFR > 60 BUN/Creatinine Ratio 21.0 Glucose 115 H Calcium 8.3 L Total Bilirubin 0.7 AST 12 L ALT 8 Alkaline Phosphatase 67 Total Protein 6.0 L Albumin 2.8 L Globulin 3.2 Albumin/Globulin Ratio 0.9 L PFSH Medical History Diverticular disease Left retinal detachment (1996) Mitral regurgitation Osteopenia (2005) Right retinal detachment (2014) Shoulder pain (2016) Urinary incontinence Surgical History Anesthesia History of colonoscopy with polypectomy (07/05/17) History of colonoscopy with polypectomy (~2012) History of non-cataract eye surgery (1996) History of non-cataract eye surgery (2014) S/P left atrial appendage ligation S/P mitral valve replacement Status post rotator cuff repair (2001) Family History Mother Cancer Multiple myeloma Father Silicosis Social History household members: none Smoking Status: Never smoker second hand exposure: No alcohol intake: current substance use type: does not use Assessment & Plan Assessment and plan (1) Diverticulitis of intestine with abscess: Qualifiers: Diverticulitis bleeding: without bleeding Diverticulitis site: large intestine Qualified Code(s): K57.20 - Diverticulitis of large intestine with perforation and abscess without bleeding Status: Acute Assessment & Plan narrative: 87-year-old woman admitted to the hospital with complicated diverticulitis with abscess. I reviewed her CT abdomen pelvis which demonstrates a 3 cm pericolonic fluid collection. She is clinically improving with IV antibiotic therapy. Percutaneous drainage had been discussed although it is not an option today as she received Eliquis December 20, and Radiology would be unable to perform the procedure until SundayDecember 25. Alternative solutions include either continued antibiotic therapy or laparoscopic drainage of the abscess. She is a relatively frail woman with multiple cardiac issues and think surgery is not in her best interest. Abscesses is fairly small at 3 cm and I anticipate that this will improve if not resolve with continued antibiotic therapy. I discussed this with the patient and her son and they are in agreement with continued antibiotic therapy at this point. -clear liquid diet -Zosyn -consider repeat CT abdomen pelvis dependent on clinical course later this weekend for reassessment of abscess
--- NOTE | 2022-12-22 12:56 | PT.IIE ---
Current Diagnoses Diverticulitis of large intestine with perforation and abscess without bleeding (12/21/22) Diverticulitis of intestine, part unspecified, with perforation and abscess without bleeding (12/21/22) Surgical History (Last Reviewed 03/21/22 @ 19:29 by Ana Horvath PA-C) Anesthesia History of colonoscopy with polypectomy (07/05/17) History of colonoscopy with polypectomy (~2012) History of non-cataract eye surgery (1996) History of non-cataract eye surgery (2014) S/P left atrial appendage ligation S/P mitral valve replacement Status post rotator cuff repair (2001) Medical History (Last Reviewed 12/21/22 @ 01:57 by Dakota Sanchez DO) Diverticular disease Left retinal detachment (1996) Mitral regurgitation Osteopenia (2004) Right retinal detachment (2014) Shoulder pain (2016) Urinary incontinence Physical Therapy Inpatient Evaluation/Re-Eval M1 PT/OT-IP Prior Functional Status Start: 12/22/22 11:33 Freq: NEEDED Status: Active Protocol: Document 12/22/22 12:56 DL (Rec: 12/22/22 13:02 DLM [id number]) Medical Review Prior Functional Status Medical History Reviewed Yes Diet/Fluid Consistency Regular Communication WFL, blind left eye Mobility and Gait Independent without a device, moves slowly per family. She was spending a lot of time in bed before this admission due to her abdominal pain but still could get around the house on her own. Activities of Daily Living and IADL's Independent, drives, Daughter in law often brings over dinner that pt can just heat up. Pt normally eats light breakfast and lunch that she makes on her own. She takes care of her own medications. She dresses and takes showers on her own. Pt has not been eating well due to increased abdominal pain and has lost around 10 pounds. Social History Household Members none Living Arrangements House Number of Floors (Floors) One Floor Number of Stairs To Enter/Railing? 1 step with rail on right Home Environment Standard Height Toilet,Walk in Shower Home Equipment Raised Toilet Seat w/Armrests, Shower Seat with Backrest,Hand Held Shower,Grab Bars In Shower Employment Status Retired Additional Social History Comment adjustable bed M2 PT-IP Current Condition Start: 12/22/22 11:33 Freq: NEEDED Status: Active Protocol: Document 12/22/22 12:56 DLM (Rec: 12/22/22 13:51 DL [id number]) Physical Therapy Current Condition Current Condition Evaluation Date 12/22/22 Treatment Diagnosis abdominal abscess, septic, impaired mobility and gait Onset Date 12/21/22 M3 PT-IP Subjective Start: 12/22/22 11:33 Freq: NEEDED Status: Active Protocol: Document 12/22/22 12:56 DLM (Rec: 12/22/22 13:51 DL [id number]) Subjective Physical Therapy Visit Type Type Initial Evaluation Visit Start Time 11:45 Visit Stop Time 12:56 Total Visit Minutes 60 Notes interruptions in visit with nursing care Occupational therapy also present this visit Number of SENIOR INFORMATION DEVELOPER Visits 0 Physical Therapy Visit Comments Patient Comments She reports her abdominal pain continues to be severe, medication helps. She describes the pain as sharp knives in her abdomen. Patient Goals get better, be able to move into [facility] Therapy Pain Assessment Pain When Pain Assessed After Treatment Pain Present Pain Present Pain Reported Location LLQ Intensity 7 Scale Used Numeric (0 - 10) Description Sharp,Stabbing Pain Behaviors Facial Grimacing,Wincing Pain Management Techniques Re-positioning,Timing of Activity with Medications M4 PT-IP Mobility and Gait Start: 12/22/22 11:33 Freq: NEEDED Status: Active Protocol: Document 12/22/22 12:56 DLM (Rec: 12/22/22 13:51 [facility] [id number]) PT-Bed Mobility Assessment Rolling Type of Rolling Roll to Left Level of Assist Minimal Assistance Supine to Sit Supine to Sit Moderate Assistance Scooting Scooting to Edge of Bed Moderate Assistance PT-Transfer Assessment Sit to and From Stand Sit to and from Stand Minimal Assistance,Use of Upper Extremities Equipment Transfer Assistive Device Gait Belt,Front Wheeled Walker Transfers Transfer Destination Chair,Toilet Transfer Technique Stand Step Pivot Transfer Ability Level of Assist Contact Guard Assistance, Minimal Assistance,Use of Upper Extremities Comments Mobility Comments Pt is moving slowly and is fearful of moving due to her pain. She is alert and shows good effort but needs extra time. Pt reported need to use the toilet so she was assisted to the bathroom toilet. Pt left up in recliner with liquid diet for lunch. Call light is close and pt instructed to have staff help with all mobility. Gait Assessment Gait Gait Assistance Required: Contact Guard Assist,Minimum Assistance Distance (Feet) 10 Assistive Devices Assistive Device Gait Belt,Front Wheeled Walker Gait Deviations General Gait Pattern Decreased Stride Length Factors Limiting Gait Function Factors Limiting Gait Function Abnormal Tonal Influences,Pain ,Poor Balance Comments Gait Comments Her gait is very slow and she is slow to manage the FWW, when given extra time she is able to do more. Her initial balance during gait shows a mild posterior lean but this resolves as she starts to move . Stair Climbing Assessment Comments Stair Climbing Comments unable this visit PT-Balance Assessment Sitting Balance and Reactions Static Sitting Balance Ability Good Dynamic Sitting Balance Ability Fair Standing Balance and Reactions Static Standing Balance Ability Fair Dynamic Standing Balance Ability Fair Device Used FWW M5 PT-IP Objective Assessments Start: 12/22/22 11:33 Freq: NEEDED Status: Active Protocol: Document 12/22/22 12:56 DLM (Rec: 12/22/22 13:51 DL [id number]) Orientation Orientation/Cognition Level of Alertness Alert Orientation Name,Age,Birthday,Month,Date, Year,Day of Week,Place, Situation Language Function Ability No Deficits Noted Safety Awareness Understands Safety Issues Memory Description No Deficits Noted Gross Range of Motion Upper Extremity ROM Assessment Within Functional Limits Lower Extremity ROM Assessment Within Functional Limits Strength Upper Extremity Strength Assessment Within Functional Limits Lower Extremity Strength Assessment Bilaterally Impaired Hip generalized weakness complicated by her abdominal pain Knee generalized weakness, needs assist with sit-stand, able to bear weight Ankle moving actively Coordination Assessment Gross Coordination Gross Coordination WNL Sensation Assessment Sensation Gross Sensation WNL Comments Sensation Comments no numbness/tingling reported in feet nor hands Muscle Tone Muscle Tone WNL Yes M6 PT-IP Treatment Start: 12/22/22 11:33 Freq: NEEDED Status: Active Protocol: Document 12/22/22 12:56 DLM (Rec: 12/22/22 13:51 DL [id number]) Physical Therapy Treatment Education Education Provided Safety Other Treatments Other Treatment Performed Her Daughter in law was present at the start of this visit and helped with home information. She left before pt participated in mobility M7 PT-IP Assessment and Plan Start: 12/22/22 11:33 Freq: NEEDED Status: Active Protocol: Document 12/22/22 12:56 DLM (Rec: 12/22/22 13:51 DL [id number]) PT Summary Assessment and Plan Potential Rehabilitation Potential Good Status of Condition at Evaluation Evolving Summary Impairments Pain,Strength,Balance,Bed Mobility,Transfers,Gait, Activity Tolerance Assessment Summary Anna is alert and resting in bed this visit. She received IV pain medication before therapy session. She is moving slowly with continued abdominal pain. She needs one person assist and extra time for all mobility. Used the FWW for gait to help manage her pain, functional weakness and decreased standing balance. Her activity level is very low at this time. She is not safe to discharge home alone at this time. She has been approved for an assisted living apt at [facility]. Pt needs 20/11 care at this time. Recommend SNF rehab at this time to help with her functional recovery before going to assisted living. This may changes as her medical status improves and her pain decreases. Will continue to assess for discharge planning. Goals Bed Mobility Goal Independent Transfer Goal Independent,Front Wheeled Walker Gait Goal Independent,Front Wheel Walker Gait Distance 150 feet Other Goals up/down one step with rail and SBA Days to Meet Goals 7 Frequency of Treatment Frequency Of Treatment Once a Day Treatment Plan Physical Therapy Treatment Plan Bed Mobility Training,Transfer Training,Gait Training, Therapeutic Exercise,Balance Retraining,Discharge Planning, Neuromuscular Re-ed Precautions Other Precautions severe abdominal pain Recommendations To Nursing Amount of Assist Needed 1 Person Assist Discharge Recommendations PT Discharge Recommendations SNF Rehab Other Discharge Recommendations may progress to home with assistance as her medical condition improves Transportation Needs at Discharge Private Vehicle,Wheelchair/ Cabulance
--- NOTE | 2022-12-22 13:13 | CM.MNRNOTE ---
Addendum entered by Anna Aguirre R.N. 12/22/22 17:36: notified that HR unchanged BP remains 102/40 HR 120's sustained (afib) on telemetry. Second dose metoprolol 25 mg po administered per orders. Upon reassessment BP slightly dropping 90's/40's and HR unchanged in 120's. MD arrived at bedside and ordered patient to transfer to ICU for pressure monitoring. Son Dheeraj notified and spoke to MD Naik regarding transfer. Addendum entered by Anna Aguirre R.N. 12/22/22 14:24: Pt assisted back to bed, and metoprolol po given. pt also given prn pain medication for 7/10 abdominal pain. Upon reassessment BP 102/40 HR 120's(afib) on telemetry. She denies dizziness, CP, n/v, SOB, or feeling palpitations. Family arrived and supportive at bedside. Original Note: Pt HR 120's-130 on telemetry after ambulating with PT to , although back to chair and at rest for >20 mins HR remains elevated in Afib on telemetry. notified and BP 102/51. Received orders for metoprolol 25mg po now. Continuous monitoring.
[2022-12-22] MEDS: METOPROLOL ER 25 MG TABLET PO ×2 (13:26→14:53)
--- NOTE | 2022-12-22 16:28 | DI.RAD.S_ITS ---
PROCEDURE: XR CHEST 1V INDICATIONS: crackles on exam TECHNIQUE: One view of the chest was acquired. COMPARISON: [facility], CR, XR CHEST 2V, 03/22/2022, 11:22. [facility], CR, XR CHEST 2V, 11/03/2021, 14:26. FINDINGS: Surgical changes and devices: Cardiac pacemaking device and dual chamber leads normal. Prior sternotomy. Lungs and pleura: Lungs are chronically mildly abnormal with chronic interstitial prominence and blunting of the lateral left costophrenic sulcus. No pleural effusions or pneumothorax. Mediastinum: Mediastinal contours appear normal. Heart size is normal. Bones and chest wall: No suspicious bony lesions. Overlying soft tissues appear unremarkable. IMPRESSION: Chronic interstitial prominence, no definite focal pneumonia. Prior sternotomy, pacemaking device and leads remain stable over time. Cardiomegaly and acute CHF is not suspected. Dictated by: Matt Nation M.D. on 12/22/2022 at 16:54 Approved by: Matt Nation M.D. on 12/22/2022 at 16:58
[2022-12-22] MEDS: DIGOXIN 500 MCG/2 ML AMPUL IV (16:57)
[2022-12-22 18:10] LABS: MRSA (Nasal) PCR Not Detected (Not Detect)
--- NOTE | 2022-12-22 18:13 | PC.NURSE ---
1645 Pt transferred to 226 from [facility] with A Fib with RVR - C/O 8/10 abdominal pain, dilaudid 0.5mg IVP given. Digoxin 500mcg IVP given as ordered. Family notified of transfer. Skin assessment done with Arlyn STEELE, area of redness around coccyx noted, Alevyn placed over area.
[2022-12-22] MEDS: ONDANSETRON 4 MG/2 ML INJ IV (19:34)
[2022-12-22] MEDS: APIXABAN 5 MG TABLET 2.5 MG PO (20:33)
[2022-12-22] MEDS: METOPROLOL ER 50 MG TABLET PO (20:34)
[2022-12-22] MEDS: ACETAMINOPHEN 325 MG TABLET 650 MG PO (20:34)
[2022-12-22] MEDS: polyethylene glycoL 3350 17 GM POWD.PACK PO (20:35)
[2022-12-23] VITALS (61 sets, daily range): BP systolic 88–123; BP diastolic 40–62; PULSE 80–112; RESP 5–24; TEMP 36.1–37; O2SAT 87–99
[2022-12-23] MEDS: HYDROMORPHONE 0.5 MG INJ IV ×7 (02:06→19:07)
[2022-12-23 05:25] LABS: BUN Creatinine Ratio 22.4 (6-22); Blood Urea Nitrogen 13 mg/dL (7-17); Calcium 8.3 mg/dL (8.4-10.2); Carbon Dioxide 19 mmol/L (22-32); Chloride 105 mmol/L (98-107); Estimated Glomerular Filt Rate > 60 mL/min (>60); Glucose 105 mg/dL (80-110); HEMOLYSIS < 15 (0-50); Potassium 3.8 mmol/L (3.4-5.1); Sodium 135 mmol/L (137-145)
[2022-12-23 05:28] LABS: Add Manual Diff / Slide Review YES; Hematocrit 33.7 % (36-46); Mean Corpuscular HGB Conc 32.7 % (30-36); Mean Corpuscular Hemoglobin 28.2 PG (26-34); Mean Corpuscular Volume 86.2 fL (80-100); Platelet Count 291 X10^3/uL (150-400); Red Blood Cell Count 3.91 X10^6/uL (4.0-5.2); Red Cell Distribution Width 13.6 % (11.6-14.8); White Blood Cell Count 17.8 X10^3/uL (4.5-11.0)
[2022-12-23 05:34] LABS: NT-proBNP (BNP-Adult 18+) 3600 pg/mL (<450)
[2022-12-23] MEDS: PIPERACILLIN/TAZO 3.375 GM in SODIUM CHLORIDE 0.9% 100 ML IV ×2 (06:13→14:51)
[2022-12-23 06:56] LABS: Neutrophils Absolute Manual 16198 /uL (3000-5900); Total Cells Counted 100
[2022-12-23 06:57] LABS: Toxic Granulation Present
[2022-12-23] MEDS: DIGOXIN 500 MCG/2 ML AMPUL 250 MCG IV (08:37)
--- NOTE | 2022-12-23 09:33 | P.PN_ITS ---
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 She showed evidence of early sepsis with hypotension tachycardia etcetera Issues in the last 24 hours have been increased heart rate secondary to atrial fibrillation and lack of ability to tolerate her normal rate control agent metoprolol because of her modest hypotension. Digoxin was instituted which seems to have been effective in controlling rate. This was started at the suggestion of Cardiology. Patient has been afebrile since admission. This morning her white blood cell count has increased slightly. Blood pressure remains borderline low, 88-107 systolic Patient reports feeling about the same this morning as she did last evening. She is requiring parental narcotics for pain control so she is absolutely right when she says it is difficult to assess how she is doing compared to admission. No new complaints or issues however. Exam Vital Signs (past 8 hours): - 12/23/22 02:00 12/23/22 02:00 12/23/22 02:04 Temperature Pulse Rate 112 H 108 H Respiratory Rate 17 18 Blood Pressure 116/56 L Pulse Oximetry 94 95 Oxygen Delivery Method 12/23/22 01:45 12/23/22 02:30 12/23/22 02:30 Temperature Pulse Rate 105 H 107 H Respiratory Rate 14 14 Blood Pressure 97/52 L Pulse Oximetry 93 92 Oxygen Delivery Method 12/23/22 03:00 12/23/22 03:00 12/23/22 02:15 Temperature Pulse Rate 108 H 105 H Respiratory Rate 13 16 Blood Pressure 105/54 L Pulse Oximetry 92 92 Oxygen Delivery Method 12/23/22 02:45 12/23/22 04:00 12/23/22 03:30 Temperature 98.4 F Pulse Rate 107 H 107 H Respiratory Rate 12 15 Blood Pressure 100/55 L 103/52 L Pulse Oximetry 93 95 Oxygen Delivery Method 12/23/22 03:30 12/23/22 04:00 12/23/22 04:00 Temperature Pulse Rate 109 H 107 H Respiratory Rate 17 15 Blood Pressure 100/55 L Pulse Oximetry 94 95 Oxygen Delivery Method 12/23/22 04:01 12/23/22 04:00 12/23/22 03:15 Temperature Pulse Rate 109 H 110 H Respiratory Rate 14 13 Blood Pressure Pulse Oximetry 95 93 Oxygen Delivery Method Room Air 12/23/22 03:45 12/23/22 04:30 12/23/22 04:30 Temperature Pulse Rate 110 H 106 H Respiratory Rate 15 12 Blood Pressure 101/50 L Pulse Oximetry 93 94 Oxygen Delivery Method 12/23/22 05:00 12/23/22 05:00 12/23/22 05:09 Temperature Pulse Rate 106 H 104 H Respiratory Rate 14 11 L Blood Pressure 105/53 L Pulse Oximetry 94 94 Oxygen Delivery Method 12/23/22 04:15 12/23/22 04:45 12/23/22 05:15 Temperature Pulse Rate 107 H 111 H 107 H Respiratory Rate 10 L 15 12 Blood Pressure Pulse Oximetry 93 94 94 Oxygen Delivery Method 12/23/22 05:30 12/23/22 05:30 12/23/22 05:45 Temperature Pulse Rate 105 H 102 H Respiratory Rate 21 18 Blood Pressure 113/58 L Pulse Oximetry 98 95 Oxygen Delivery Method 12/23/22 06:00 12/23/22 06:00 12/23/22 06:15 Temperature Pulse Rate 106 H 105 H Respiratory Rate 15 12 Blood Pressure 105/51 L Pulse Oximetry 95 97 Oxygen Delivery Method 12/23/22 07:29 12/23/22 07:29 12/23/22 07:30 Temperature Pulse Rate 112 H Respiratory Rate 12 Blood Pressure 97/50 L 93/50 L Pulse Oximetry Oxygen Delivery Method 12/23/22 07:30 12/23/22 07:33 12/23/22 08:36 Temperature Pulse Rate 111 H 108 H 90 Respiratory Rate 19 14 Blood Pressure 88/40 L Pulse Oximetry Oxygen Delivery Method 12/23/22 08:37 Temperature Pulse Rate 90 Respiratory Rate Blood Pressure 88/40 L Pulse Oximetry Oxygen Delivery Method Oxygen Delivery Method Room Air Oxygen Flow Rate 0 Objective Labs 12/23/22 04:44 12/23/22 04:44 Labs: Laboratory Results - last 24 hr 12/22/22 12/23/22 12/23/22 14:26 04:44 04:44 WBC 17.8 H RBC 3.91 L Hgb 11.0 L Hct 33.7 L MCV 86.2 MCH 28.2 MCHC 32.7 RDW 13.6 Plt Count 291 Neut % (Auto) Not Reportable Lymph % (Auto) Not Reportable [place] % (Auto) Not Reportable Eos % (Auto) Not Reportable Baso % (Auto) Not Reportable Lymph # (Auto) Not Reportable [place] # (Auto) Not Reportable Baso # (Auto) Not Reportable Total Counted 100 Seg Neutrophils % 85.0 H Band Neutrophils % 6.0 Lymphocytes % (Manual) 6.0 L Monocytes % (Manual) 3.0 Neutrophils # (Manual) 47416 H Toxic Granulation Present H RBC Morphology See below Sodium 135 L Potassium 3.8 Chloride 105 Carbon Dioxide 19 L BUN 13 Creatinine 0.58 Estimated GFR > 60 BUN/Creatinine Ratio 22.4 H Glucose 105 Calcium 8.3 L NT-Pro-B Natriuret Pep 3600 H Nasal Screen MRSA (PCR) Not detected PFSH Medical History Diverticular disease Left retinal detachment (1996) Mitral regurgitation Osteopenia (2004) Right retinal detachment (2014) Shoulder pain (2016) Urinary incontinence Surgical History Anesthesia History of colonoscopy with polypectomy (07/05/17) History of colonoscopy with polypectomy (~2012) History of non-cataract eye surgery (1996) History of non-cataract eye surgery (2014) S/P left atrial appendage ligation S/P mitral valve replacement Status post rotator cuff repair (2001) Family History Mother Cancer Multiple myeloma Father Silicosis Social History household members: none Smoking Status: Never smoker second hand exposure: No alcohol intake: current substance use type: does not use Assessment & Plan Assessment & Plan narrative: 1. Diverticular abscess-patient reports feeling about the same. White blood cell count popped up a bit this morning. Repeat imaging seems appropriate to determine next steps. However many indicators would suggest she is probably not improving with antibiotic therapy alone, with elevated white count her tachycardia and probable increased pain and discomfort as per General surgery would seem to suggest she is going to need some sort of drainage. Minimally invasive procedures such as CT-guided drain is far far more appropriate than a open surgical procedure. There maybe some risk to a CT guided drain procedure due to her anticoagulation but her risk of surgical procedure is an order of magnitude greater in my opinion. Therefore I would advocate for transfer to a center where interventional radiology can place a drain, as even if her CT this morning shows stability it seems likely that is where she is had. 2. Atrial fibrillation-patient is seems better rate controlled. Continue digoxin for now. Patient's Eliquis was discontinued by General surgery this morning. Patient also restarted on her metoprolol and thus far has tolerated that. Continue with the digoxin. She does have a pacemaker in place so I think that is an excellent choice for her as digoxin major complication relates to bradycardia etcetera 3. Hypotension/cardiomyopathy-somewhat hesitant to initiate fluids for her hypotension given her cardiomyopathy and apparently has a history of intolerance of IV fluids. At this point no evidence of pulmonary edema. Patient is not hy poxic and chest x-ray done yesterday is reassuring. Continue with some degree of IV fluids but monitor carefully. 4. Cardiomyopathy/anticoagulation/valvular heart disease-patient did develop a significant clot when Eliquis was previously held. However I think she is going to require some intervention as above and at this point being off Eliquis and any other anticoagulation is appropriate, although restarting it as soon as possible would make sense as well after whatever intervention is necessary. She was back on metoprolol and tolerating it. If we can stabilize her from a sepsis/infectious disease standpoint we maybe able to begin to resume her other medications but that will be down the road. 5. GI-evidence of dilated biliary tree and pancreatic duct on imaging. Deferring evaluation of this until her diverticular abscess is better defined along with her clinical course etcetera. Would benefit from MRCP when more stable from a diverticular standpoint.
--- NOTE | 2022-12-23 09:44 | DI.CT.S_ITS ---
PROCEDURE: CT ABDOMEN PELVIS W CON INDICATIONS: Re-evaluate abscess TECHNIQUE: After the administration of oral and IV contrast, axial sections were acquired from the lung bases to the pubic symphysis. Coronal and sagittal reformats were performed. For radiation dose reduction, the following was used: automated exposure control, adjustment of mA and/or kV according to patient size. COMPARISON: [facility], CR, XR CHEST 1V, 12/22/2022, 16:24. [facility], CT, CT ABDOMEN PELVIS W CON, 12/21/2022, 2:10. FINDINGS: Image quality: Excellent. Lung bases: Unremarkable. Sternotomy wires are seen. Heart: There is mild cardiomegaly Pacer leads are seen. ABDOMEN: Liver: Unremarkable. Gallbladder: Unremarkable. Biliary ducts: The common bile duct measures up to 8 mm, which is mildly dilated. There is abnormal dilatation seen of the pancreatic duct, measuring up to 6 mm. Pancreas: Unremarkable. Spleen: Unremarkable. Adrenal Glands: Unremarkable. Kidneys and Ureters: Unremarkable. Stomach and Bowel: Adjacent to the sigmoid colon, there is again seen an extraluminal pockets of gas and soft tissue/fluid [id number], which today measures 4.5 x 3.7 cm in greatest axial dimension, with a craniocaudal extent of 3.4 cm. There is moderate rim enhancement. This abscess collection seen immediately adjacent to the urinary bladder, with mass effect upon the urinary bladder. Adjacent to the abscess, there is focal moderate wall thickening of the proximal sigmoid colon. Moderate stool can be seen within the more proximal colon. Abnormally dilated loops of small bowel are seen, which measure up to 4.3 cm proximally. Distally, the small bowel loops are relatively decompressed. There is a relative transition point seen within the left mid abdomen, adjacent to the abscess. At this site, the small bowel wall appears thickened. There is a mild amount layering ascites seen. No bautista free air can be seen. The stomach is moderately distended with fluid. Ventral Wall: No hernia. Abdominal Nodes: No retroperitoneal or mesenteric adenopathy by size criteria. Vessels: Aorta and inferior vena cava are normal in size. PELVIS: Pelvic Organs: The uterus appears normal for age. No adnexal masses are seen. Bladder: Unremarkable. Pelvic Nodes: No enlarged lymph nodes. Miscellaneous: No inguinal hernias are seen. Bones: Mild levoconvex scoliotic curvature is noted. IMPRESSION: Enlarging abscess seen adjacent to the sigmoid colon, which now measures 4.5 x 3.7 x 3.4 cm. Adjacent to the abscess, there is abnormal thickening of the wall of the sigmoid. Differential diagnosis includes infectious inflammatory change. Please consider perforated neoplasm. When clinically appropriate, a lower endoscopy is recommended for further evaluation. High-grade ileus versus partial small-bowel obstruction, with a transition point seen adjacent to the abscess. At the transition point, there is thickened, inflamed appearing small-bowel zamarripa seen. Pancreatic ductal dilatation and pancreatic ductal dilatation can be seen. This combination of findings is commonly seen with a periampullary mass. On this study, then can be seen. Please consider follow-up MRCP or ERCP for further evaluation. There is mild ascites. Additional findings: Sternotomy Pacer leads Mild cardiomegaly. Focal lower lumbar spine degenerative change Dictated by: Julio Berrios M.D. on 12/23/2022 at 12:28 Approved by: Julio Berrios M.D. on 12/23/2022 at 12:37
--- NOTE | 2022-12-23 09:45 | PM.PN.1 ---
Subjective Subjective Date Patient Seen: 12/23/22 Time Patient Seen: 09:45 Interval history: Patient was transferred to the ICU for atrial fibrillation with RVR. She reports increased abdominal pain. Radiology was unwilling to place a percutateous drain due to recent eliquis. Exam Vital Signs (past 8 hours): - 12/23/22 02:00 12/23/22 02:00 12/23/22 02:04 Temperature Pulse Rate 112 H 108 H Respiratory Rate 17 18 Blood Pressure 116/56 L Pulse Oximetry 94 95 Oxygen Delivery Method 12/23/22 02:30 12/23/22 02:30 12/23/22 03:00 Temperature Pulse Rate 107 H Respiratory Rate 14 Blood Pressure 97/52 L 105/54 L Pulse Oximetry 92 Oxygen Delivery Method 12/23/22 03:00 12/23/22 02:15 12/23/22 02:45 Temperature Pulse Rate 108 H 105 H 107 H Respiratory Rate 13 16 12 Blood Pressure Pulse Oximetry 92 92 93 Oxygen Delivery Method 12/23/22 04:00 12/23/22 03:30 12/23/22 03:30 Temperature 98.4 F Pulse Rate 107 H 109 H Respiratory Rate 15 17 Blood Pressure 100/55 L 103/52 L Pulse Oximetry 95 94 Oxygen Delivery Method 12/23/22 04:00 12/23/22 04:00 12/23/22 04:01 Temperature Pulse Rate 107 H 109 H Respiratory Rate 15 14 Blood Pressure 100/55 L Pulse Oximetry 95 95 Oxygen Delivery Method 12/23/22 04:00 12/23/22 03:15 12/23/22 03:45 Temperature Pulse Rate 110 H 110 H Respiratory Rate 13 15 Blood Pressure Pulse Oximetry 93 93 Oxygen Delivery Method Room Air 12/23/22 04:30 12/23/22 04:30 12/23/22 05:00 Temperature Pulse Rate 106 H Respiratory Rate 12 Blood Pressure 101/50 L 105/53 L Pulse Oximetry 94 Oxygen Delivery Method 12/23/22 05:00 12/23/22 05:09 12/23/22 04:15 Temperature Pulse Rate 106 H 104 H 107 H Respiratory Rate 14 11 L 10 L Blood Pressure Pulse Oximetry 94 94 93 Oxygen Delivery Method 12/23/22 04:45 12/23/22 05:15 12/23/22 05:30 Temperature Pulse Rate 111 H 107 H Respiratory Rate 15 12 Blood Pressure 113/58 L Pulse Oximetry 94 94 Oxygen Delivery Method 12/23/22 05:30 12/23/22 05:45 12/23/22 06:00 Temperature Pulse Rate 105 H 102 H Respiratory Rate 21 18 Blood Pressure 105/51 L Pulse Oximetry 98 95 Oxygen Delivery Method 12/23/22 06:00 12/23/22 06:15 12/23/22 07:29 Temperature Pulse Rate 106 H 105 H Respiratory Rate 15 12 Blood Pressure 97/50 L Pulse Oximetry 95 97 Oxygen Delivery Method 12/23/22 07:29 12/23/22 07:30 12/23/22 07:30 Temperature Pulse Rate 112 H 111 H Respiratory Rate 12 19 Blood Pressure 93/50 L Pulse Oximetry Oxygen Delivery Method 12/23/22 07:33 12/23/22 08:36 12/23/22 08:37 Temperature Pulse Rate 108 H 90 90 Respiratory Rate 14 Blood Pressure 88/40 L 88/40 L Pulse Oximetry Oxygen Delivery Method Oxygen Delivery Method Room Air Oxygen Flow Rate 0 Narrative Exam Narrative: Tender to palpation in the left lower quadrant with guarding Objective Labs 12/23/22 04:44 12/23/22 04:44 Labs: Laboratory Results - last 24 hr 12/22/22 12/23/22 12/23/22 14:26 04:44 04:44 WBC 17.8 H RBC 3.91 L Hgb 11.0 L Hct 33.7 L MCV 86.2 MCH 28.2 MCHC 32.7 RDW 13.6 Plt Count 291 Neut % (Auto) Not Reportable Lymph % (Auto) Not Reportable [place] % (Auto) Not Reportable Eos % (Auto) Not Reportable Baso % (Auto) Not Reportable Lymph # (Auto) Not Reportable [place] # (Auto) Not Reportable Baso # (Auto) Not Reportable Total Counted 100 Seg Neutrophils % 85.0 H Band Neutrophils % 6.0 Lymphocytes % (Manual) 6.0 L Monocytes % (Manual) 3.0 Neutrophils # (Manual) 94838 H Toxic Granulation Present H RBC Morphology See below Sodium 135 L Potassium 3.8 Chloride 105 Carbon Dioxide 19 L BUN 13 Creatinine 0.58 Estimated GFR > 60 BUN/Creatinine Ratio 22.4 H Glucose 105 Calcium 8.3 L NT-Pro-B Natriuret Pep 3600 H Nasal Screen MRSA (PCR) Not detected PFSH Medical History Diverticular disease Left retinal detachment (1996) Mitral regurgitation Osteopenia (2004) Right retinal detachment (2014) Shoulder pain (2016) Urinary incontinence Surgical History Anesthesia History of colonoscopy with polypectomy (07/05/17) History of colonoscopy with polypectomy (~2012) History of non-cataract eye surgery (1996) History of non-cataract eye surgery (2014) S/P left atrial appendage ligation S/P mitral valve replacement Status post rotator cuff repair (2001) Family History Mother Cancer Multiple myeloma Father Silicosis Social History household members: none Smoking Status: Never smoker second hand exposure: No alcohol intake: current substance use type: does not use Assessment & Plan Assessment and plan (1) Diverticulitis of intestine with abscess: Qualifiers: Diverticulitis bleeding: without bleeding Diverticulitis site: large intestine Qualified Code(s): K57.20 - Diverticulitis of large intestine with perforation and abscess without bleeding Status: Acute Plan Diverticular abscess Increasing abdominal pain and atrial fibrillation with RVR Will repeat CT scan today Please do not administer eliquis or any anticoagulation The patient has an abscess that is very accessible to a minimally invasive percutaneous drain and is a poor surgical candidate but has been unable to get a drain due to her anticoagulated state.
[2022-12-23] MEDS: METOPROLOL ER 50 MG TABLET PO (11:02)
[2022-12-23] MEDS: polyethylene glycoL 3350 17 GM POWD.PACK PO (11:05)
--- NOTE | 2022-12-23 12:33 | PT-IP ANOTE ---
Pt refused to work with PT this afternoon due to pain. PT will check back in tomorrow.
--- NOTE | 2022-12-23 12:41 | CM.DPC ---
DCP SNF planning: Per MD, pt continues with pain and per Surgeon pt to likely have CT scan to determine if surgical intervention still needed on Sunday due to her Eliquis. Per STRUCTURAL IRON ERECTOR, pt refused this morning but then met bedside with pt, son Alexsander, Dtr marissa Streeter and SW and discussed recommendation of SNF currently due to pt needing about 2PA and deconditioned and painful but that pt will need to attempt to participate at least a little with PT/OT for insurance to auth SNF. Pt and family acknowledge understanding and also feel SNF will be needed at d/c before pt is able to move into [facility] in a couple weeks and will need to be less assist level for [facility] as well. Pt and son confirm pt has hx of SNF at [facility] in 2020 and SW provided SNF Choice list with highlighted [employer] contracted SNFs. Preference is [facility] and agreeable to SW making new referral. SW faxed clinicals and left msg for [facility] to review for likely d/c in a few days and would need [employer] SNF auth. PASRR done. Plan: Patient plans to attempt to work with PT tomorrow Sun to show her participation in therapies towards [employer] SNF auth when medically stable to discharge. SW to follow for [facility] review to confirm they can accept and start insurance auth. VEE Sánchez
--- NOTE | 2022-12-23 16:16 | P.DS_ITS ---
History of Present Illness History of Present Illness Date Patient Seen: 12/23/22 Time Patient Seen: 16:16 Chief complaint: ABD Pain Narrative: 87-year-old female with significant cardiac history status post mitral valve replacement and tricuspid repair persistent atrial fibrillation status post atrial appendage clipping coronary artery disease systolic congestive heart failure with ejection fraction of 35% and pacemaker placement.? Patient has a history of colon polyps and diverticular disease patient lives at home by herself is planning on moving to assisted living.? She is accompanied by her son at the bedside.? Patient has had ongoing abdominal problems due to what she describes as diverticulitis.? She will have flare up of pain that lasts for week or 2 and then it will go away for a month or 2 this has been gradually getting closer and closer together in fact she recently saw a professor of physical education who did not recommend a colonoscopy.? Over the last few days she is noticed increasing abdominal pain and discomfort which was pretty typical.? She saw her primary care physician yesterday for wellness check and had her typical abdominal pain but it was increasing.? He is some laboratory tests and a CT scan was ordered as an outpatient.? Patient was doing well until yesterday evening when she had sudden onset of severe left lower quadrant abdominal pain.? Patient then called 911 and was brought into the emergency department.? She says her pain was quite severe she is never had this bad.? Patient denies any significant symptoms of diarrhea or blood in her stool but she does have constipation and she is been taking MiraLax for this.? She describes that she has not had fevers or chills.? She has not had any chest pain or shortness of breath.? She is had a lot of recent cardiac concerns and been seeing a [facility] cardiothoracic surgeon up in [facility]. Today patient is complaining of abdominal pain she is a good historian.? She says her pain is much more controlled she is complaining of constipation.? She says she is not fevers or chills she does not have any shortness a breath or chest pain.? She is not having any heartburn.? Maybe a little bit of nausea but not particularly.? She is not hungry. {from Dr. Saldana's H&P December 21, 2022} Discharge Providers Provider Date of admission: 12/21/22 04:19 Discharge Date: 12/23/22 Primary care physician: Palak Naik MD Consults: 12/21/22 04:17 Consult to General Surgery Stat Comment: Consulting Provider: Carolee De Leon Reason for consultation: Diverticulitis with abscess Has provider been notified: Yes 12/21/22 04:18 Consult to Physician Stat Comment: Consulting Provider: Yrn Saldana Reason for consultation: admission Has provider been notified: Yes 12/21/22 04:19 Consult to Physician Urgent Comment: Consulting Provider: Palak Naik Reason for consultation: admission Has provider been notified: No 12/21/22 15:45 Consult to General Surgery Routine Comment: Consulting Provider: Carolee De Leon Reason for consultation: divlertciulitis with perf Has provider been notified: Yes 12/22/22 10:32 Consult to Occupational Therapy Evaluate & Treat Comment: Physician Instructions: Evaluate and treat Consult to Physical Therapy Evaluate & Treat Comment: Physician Instructions: Evaluate and Treat Discharge provider: Collins Thakur MD Summary Hospital Course Discharge Diagnosis: 1. Sigmoid abscess secondary to ruptured diverticulitis 2. Sepsis, resolving 3. Atrial fibrillation with rapid ventricular response 4. Nonischemic cardiomyopathy 5. Status post mitral valve replacement with bioprosthetic valve, on chronic long-term anticoagulation 6. 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 Status post pacemaker placement 8. COPD Hospital Course: Patient was admitted as above after diagnosis of a sigmoid abscess secondary to her diverticulitis. She was placed on parental antibiotics. She was given some gentle IV fluids initially with improvement in blood pressure at which point the IV fluids were discontinued because of her known cardiomyopathy. Patient had leukocytosis upon presentation and her white blood cell count actually increased. She had increasing lower abdominal/pelvic symptoms and repeat CT scan demonstrated increased size of the pelvic/sigmoid abscess. Given that it was felt most appropriate to try for an interventional radiology approach to drain the abscess as patient is a high surgical risk Patient does have significant cardiac history as above including a cardiomyopathy with ejection fraction of 35% with a history of volume overload with IV fluids, atrial fibrillation with rapid ventricular response. The rapid ventricular response was felt to be secondary in part to her sepsis but also the fact that she would had her usual medications held because of her hypotension. She was given digoxin upon the suggestion of her Cardiology group in [place] which did help control her rate. With time and rate control, her blood pressure actually improved and she was able to tolerate oral metoprolol as well. Patient is chronically anticoagulated with Eliquis which was initially held, but she did receive a dose on the evening of the november, after Interventional Radiology at [facility] declined to place a drain. However her Eliquis has been held since then Patient does not show any evidence of volume overload/pulmonary edema at this time. She is not hypoxic and chest x-ray done on the evening of the 22 of December did not demonstrate pulmonary edema Overall patient is high-risk surgical candidate given her cardiac history and admittedly is a high risk for interventional radiology procedure as well given her direct oral anticoagulant therapy with Eliquis, but patient will likely need some sort of intervention in the next 24 hours and an IR approach certainly seems far safer than an open surgical approach for drainage of her abscess etcetera If she does have further difficulty it would also be helpful to have her in a facility where cardiology is available to help manage her somewhat complicated cardiac care as noted above. Therefore plan is to transfer her to tertiary care for interventional radiology procedure and continued management of her other medical issues. Patient did show evidence of extra hepatic biliary dilatation as well as pancreatic ductal dilatation. Her LFTs and bilirubin are normal. She has no symptoms in this regard. This is suspicious for a pancreatic malignancy but has not been further investigated. This was discussed with patient and family briefly but obviously treatment of her infectious issues are far more immediate and critical than evaluation of her possible pancreatic abnormality. However when she is clinically improved from an infectious disease standpoint MRCP or equivalent would be indicated for evaluation of her pancreas/pancreatic duct/biliary tree etcetera Exam Vital Signs (past 8 hours): - 12/23/22 08:37 12/23/22 08:30 12/23/22 08:30 Temperature Pulse Rate 90 92 H Respiratory Rate 12 Blood Pressure 88/40 L 88/49 L Pulse Oximetry 12/23/22 08:39 12/23/22 08:39 12/23/22 09:00 Temperature Pulse Rate 102 H Respiratory Rate 17 Blood Pressure 94/54 L 96/53 L Pulse Oximetry 12/23/22 09:00 12/23/22 09:30 12/23/22 09:30 Temperature Pulse Rate 89 89 Respiratory Rate 13 15 Blood Pressure 103/55 L Pulse Oximetry 12/23/22 10:00 12/23/22 10:00 12/23/22 10:42 Temperature 97.9 F Pulse Rate 96 H 90 Respiratory Rate 7 L Blood Pressure 114/54 L 88/40 L Pulse Oximetry 96 12/23/22 11:02 12/23/22 11:30 12/23/22 10:30 Temperature Pulse Rate 98 H 87 Respiratory Rate Blood Pressure 103/55 L 123/56 L 106/58 L Pulse Oximetry 12/23/22 10:30 12/23/22 11:00 12/23/22 11:00 Temperature Pulse Rate 97 H 96 H Respiratory Rate 22 12 Blood Pressure 105/55 L Pulse Oximetry 12/23/22 11:30 12/23/22 11:30 12/23/22 12:00 Temperature Pulse Rate 95 H Respiratory Rate 10 L Blood Pressure 108/59 L 115/54 L Pulse Oximetry 98 12/23/22 12:00 12/23/22 12:30 12/23/22 12:30 Temperature Pulse Rate 95 H 93 H Respiratory Rate 5 L 8 L Blood Pressure 110/53 L Pulse Oximetry 95 97 12/23/22 13:09 12/23/22 13:13 12/23/22 13:13 Temperature Pulse Rate 85 90 Respiratory Rate 24 21 Blood Pressure 123/56 L Pulse Oximetry 87 L 12/23/22 13:30 12/23/22 14:00 12/23/22 14:00 Temperature Pulse Rate 83 90 Respiratory Rate 11 L 13 Blood Pressure 111/62 Pulse Oximetry 94 94 12/23/22 14:30 12/23/22 15:00 12/23/22 15:04 Temperature Pulse Rate 86 80 Respiratory Rate 16 21 Blood Pressure 96/55 L Pulse Oximetry 99 12/23/22 15:04 12/23/22 15:30 12/23/22 16:00 Temperature 97 F L Pulse Rate 82 91 H Respiratory Rate 19 15 Blood Pressure 113/55 L Pulse Oximetry 98 97 12/23/22 16:00 Temperature 97.8 F Pulse Rate 81 Respiratory Rate 13 Blood Pressure Pulse Oximetry 98 Oxygen Delivery Method Room Air Oxygen Flow Rate 0 Objective Labs 12/23/22 04:44 12/23/22 04:44 Labs: Laboratory Results - last 24 hr 12/22/22 12/23/22 12/23/22 14:26 04:44 04:44 WBC 17.8 H RBC 3.91 L Hgb 11.0 L Hct 33.7 L MCV 86.2 MCH 28.2 MCHC 32.7 RDW 13.6 Plt Count 291 Neut % (Auto) Not Reportable Lymph % (Auto) Not Reportable [place] % (Auto) Not Reportable Eos % (Auto) Not Reportable Baso % (Auto) Not Reportable Lymph # (Auto) Not Reportable [place] # (Auto) Not Reportable Baso # (Auto) Not Reportable Total Counted 100 Seg Neutrophils % 85.0 H Band Neutrophils % 6.0 Lymphocytes % (Manual) 6.0 L Monocytes % (Manual) 3.0 Neutrophils # (Manual) 58442 H Toxic Granulation Present H RBC Morphology See below Sodium 135 L Potassium 3.8 Chloride 105 Carbon Dioxide 19 L BUN 13 Creatinine 0.58 Estimated GFR > 60 BUN/Creatinine Ratio 22.4 H Glucose 105 Calcium 8.3 L NT-Pro-B Natriuret Pep 3600 H Nasal Screen MRSA (PCR) Not detected PFS Medical History Diverticular disease Left retinal detachment (1996) Mitral regurgitation Osteopenia (2004) Right retinal detachment (2014) Shoulder pain (2016) Urinary incontinence Surgical History Anesthesia History of colonoscopy with polypectomy (07/05/17) History of colonoscopy with polypectomy (~2012) History of non-cataract eye surgery (1996) History of non-cataract eye surgery (2014) S/P left atrial appendage ligation S/P mitral valve replacement Status post rotator cuff repair (2001) Family History Mother Cancer Multiple myeloma Father Silicosis Social History household members: none Smoking Status: Never smoker second hand exposure: No alcohol intake: current substance use type: does not use Discharge Assessment & Plan Assessment and Plan Plan of Treatment: Plan to discharge to tertiary care center for placement of percutaneous drain and continued management of her medical issues as above. [facility] does not have interventional radiology capability at all on the weekends and has no cardiology available at any time. It was felt most ap propriate to transfer patient to a center with both of these specialties as well as General surgery of course in case she needs an open surgical procedure to drain her abscess etcetera. At time of discharge patient's sepsis seems to be resolving with stable heart rate and blood pressure for the last 12-18 hours or so. However her abscess seems to be worsening with increased leukocytosis increased pain etcetera. In addition whatever is going on with her pancreatic duct has yet to be determined. Discharge Plan Discharge Plan Patient Disposition: Xfer Acute Care Hospital Discharge Health Status Multidrug resistant organism: No MDRO Precautions: [place] Diet/Activity/Treatments Diet: Clear Liquid Liquid consistency: Normal/Thin Food texture: Regular Discharge Data Primary Care Provider: Palak Naik
--- NOTE | 2022-12-23 17:59 | PC.NURSE ---
1800 Preparations underway to transfer pt to [facility] in [place] for Interventional radiology drainage of abscess. Pt and family aware and report called to Jacque STEELE
--- NOTE | 2022-12-24 08:45 | CM.DPC ---
DCP Continued: INSTRUMENTATION MANAGER reviewed EMR. Patient was transferred to [facility]. INSTRUMENTATION MANAGER called [facility] to inform them of the transfer. Admissions reported they would update their team. CM team will continue to follow as needed. VEE Perez
== END 2022-12-23 19:16 | disposition short-term general hospital (02) | DRG 871 ==
LOC: ED 03:56 → AC 04:20 → ICU 12-22 16:30
PROVIDERS: Family Medicine; Surgery; Admitting Provider Family Medicine; Emergency Provider Emergency Medicine; Family Provider Family Medicine; PCP Family Medicine; Referring Provider Emergency Medicine; Visit Provider Family Medicine
DX: A41.9 Sepsis, unspecified organism (principal); K65.1 Peritoneal abscess; I50.22 Chronic systolic (congestive) heart failure; K57.20 Diverticulitis of large intestine with perforation and abscess without bleeding; I42.8 Other cardiomyopathies; I48.91 Unspecified atrial fibrillation; K59.00 Constipation, unspecified; Z79.01 Long term (current) use of anticoagulants; Z66 Do not resuscitate; Z95.2 Presence of prosthetic heart valve; Z95.0 Presence of cardiac pacemaker; R63.4 Abnormal weight loss
CPT/HCPCS: 36415; 71045; 74177; 80048; 80053; 82550; 83036; 83605; 83690; 83880; 84484; 85007; 85025; 85610; 85730; 87040; 87797; 93005; 96365; 96375; 96376; 97162; 97166; 99223; 99231; 99232; 99233; 99284; 99285; J1160; J1170; J2270; J2405; J2543; Q9967

== ENCOUNTER → 2025-02-18 09:16 | Outpatient (CLI) | payer MEDICARE, SELFPAY ==
[2022-12-21 04:30] VITALS: BMI 16.8
[2025-02-18 10:00] LABS: Alanine Aminotransferase 20 IU/L (<35); Albumin 4.3 g/dL (3.5-5.0); Albumin Globulin Ratio 1.7 (1.0-2.8); Alkaline Phosphatase 81 U/L (38-126); Blood Urea Nitrogen 20 mg/dL (7-17); Calcium 9.6 mg/dL (8.4-10.2); Carbon Dioxide 23 mmol/L (22-32); Chloride 108 mmol/L (98-107); Estimated Glomerular Filt Rate > 60 mL/min (>60); Globulin 2.5 g/dL (1.7-4.1); Glucose 102 mg/dL (70-99); HEMOLYSIS 16 (0-50); Potassium 4.6 mmol/L (3.4-5.1); Sodium 140 mmol/L (137-145); Total Protein 6.8 g/dL (6.3-8.2)
[2025-02-18 10:45] LABS: Add Manual Diff / Slide Review NO; Hematocrit 43.2 % (36-46); Hemoglobin 14.3 g/dL (12.0-16.0); Lymphocytes Absolute Auto 1600 /uL (1100-4500); Mean Corpuscular HGB Conc 33.0 % (30-36); Mean Corpuscular Hemoglobin 29.4 PG (26-34); Mean Corpuscular Volume 89.1 fL (80-100); Platelet Count 237 X10^3/uL (150-400)
== END ==
LOC: LAB 09:17
PROVIDERS: PCP Family Medicine; Referring Provider Family Medicine; Visit Provider Family Medicine
DX: I50.9 Heart failure, unspecified (principal)
CPT/HCPCS: 36415; 80053; 85025

== ENCOUNTER 2025-04-08 19:43 | Emergency (ER) | payer MEDICARE, SELFPAY ==
[2022-12-21 04:30] VITALS: BMI 16.8
[2025-04-08 19:50] VITALS: BP 99/51; PULSE 78; RESP 18; TEMP 36.4; O2SAT 98; BMI 19.9
--- NOTE | 2025-04-08 20:05 | DI.RAD.S_ITS ---
PROCEDURE: XR ANKLE RT MIN 3V INDICATIONS: fall TECHNIQUE: 3 views of the ankle were acquired. COMPARISON: None. FINDINGS: Bones: No fractures or dislocations. Ankle mortise is normally aligned. No suspicious bony lesions. Soft tissues: No tibiotalar joint effusion. Achilles tendon appears normal. IMPRESSION: No acute bony abnormality or significant effusion. Dictated by: Kirk Keys M.D. on 04/08/2025 at 21:22 Approved by: Kirk Keys M.D. on 04/08/2025 at 21:22
--- NOTE | 2025-04-08 20:05 | DI.RAD.S_ITS ---
PROCEDURE: XR WRIST RT MIN 3V INDICATIONS: fall TECHNIQUE: 4 views of the wrist were acquired. COMPARISON: None. FINDINGS: Bones: No fractures or dislocations. No suspicious bony lesions. Soft tissues: No suspicious soft tissue calcifications. IMPRESSION: No acute bony abnormality. Dictated by: Kirk Keys M.D. on 04/08/2025 at 21:23 Approved by: Kirk Keys M.D. on 04/08/2025 at 21:23
--- NOTE | 2025-04-08 20:06 | DI.RAD.S_ITS ---
PROCEDURE: XR FOREARM RT 2V INDICATIONS: fall TECHNIQUE: 2 views of the forearm were acquired. COMPARISON: None. FINDINGS: Bones: No fractures or dislocations. No suspicious bony lesions. Soft tissues: No suspicious soft tissue calcifications or masses. IMPRESSION: No acute bony abnormality. Dictated by: Kirk Keys M.D. on 04/08/2025 at 21:23 Approved by: Kirk Keys M.D. on 04/08/2025 at 21:23
[2025-04-08] MEDS: ACETAMINOPHEN 325 MG TABLET 650 MG PO (20:12)
--- NOTE | 2025-04-08 21:43 | ED.FALL ---
HPI - Fall General Chief Complaint: Fall Stated Complaint: fall today, R ankle and wrist pain, on thinners Time Seen by Provider: 04/08/25 21:34 Mode of arrival: Ambulatory History of Present Illness HPI Narrative: 89-year-old female resident of [facility] on chronic anticoagulation Jas, tripped this afternoon, fell onto her right wrist, has pain to her right wrist and forearm, has small abrasion to her right knee, and right ankle pain with swelling. No other injuries. Denies headache neck pain. Denies focal weakness to face arm or leg. Denies focal numbness to face arm or leg. Related Data Home Medications ?Medication ?Instructions ?Recorded ?Confirmed metoprolol succinate 50 mg 50 mg PO BID 11/02/21 02/11/25 tablet,extended release 24 hr apixaban 2.5 mg tablet (Eliquis) 2.5 mg PO BID 12/21/22 02/11/25 empagliflozin 10 mg tablet 10 mg PO DAILY 12/21/22 02/11/25 (Jardiance) sacubitril 24 mg-valsartan 26 mg 1 tab PO BID 12/21/22 02/11/25 tablet (Entresto) spironolactone 25 mg tablet 25 mg PO DAILY 12/21/22 02/11/25 Previous Rx's ?Medication ?Instructions ?Recorded oxycodone-acetaminophen 5 mg-325 1 tab PO Q6H PRN pain #10 tabs 04/08/25 mg tablet Allergies Allergy/AdvReac Type Severity Reaction Status Date / Time No Known Drug Allergies Allergy Verified 04/08/25 19:50 Patient History Medical History (Updated 04/08/25 @ 23:10 by Rik Mg MD) Encounter for Medicare annual wellness exam Mitral regurgitation Shoulder pain (2016) Osteopenia (2004) Urinary incontinence Diverticular disease Right retinal detachment (2014) Left retinal detachment (1996) Surgical History S/P left atrial appendage ligation S/P mitral valve replacement History of colonoscopy with polypectomy (~2012) History of colonoscopy with polypectomy (07/05/17) Anesthesia History of non-cataract eye surgery (2014) History of non-cataract eye surgery (1996) Status post rotator cuff repair (2001) Family History Mother Cancer Multiple myeloma Father Silicosis Social History household members: none Smoking Status: Never smoker second hand exposure: No alcohol intake: current substance use type: does not use Smoking Status: Never smoker alcohol intake frequency: a few times a month Exam Narrative Exam Narrative: GENERAL: Well-developed patient, in mild distress. HEAD: Atraumatic. Normocephalic. EYES: Pupils equal round and reactive. Extraocular motions intact. No scleral icterus. No injection or drainage. ENT: Nose without bleeding, purulent drainage. Throat without erythema, tonsillar hypertrophy or exudate. Airway patent. NECK: Trachea midline. Non tender CARDIOVASCULAR: Regular rate and rhythm without murmurs, gallops, or rubs. RESPIRATORY: Clear to auscultation. Breath sounds equal bilaterally. No wheezes, rales, or rhonchi. GASTROINTESTINAL: Abdomen soft, non-tender, nondistended. EXTREMITIES: Right forearm wrist tenderness without gross deformity, no skin laceration changes or gross edema obvious. Right ankle with lateral swelling and dependent ecchymoses, without tenderness at base of 5th metatarsal. No tenderness to mid distal foot or phalanges. Small abrasion rate knee prepatellar, nonsuturable, without gross knee effusion, no medial or lateral joint line tenderness, no laxity on valgus or varus stress, can fully extend, can flex knee beyond 90?. BACK: Nontender without deformity or crepitance. No flank tenderness. NEURO: AOx3. Motor functions grossly nonfocal. SKIN: No rash or erythema of visible areas Initial Vital Signs Initial Vital Signs: Vital Signs Temperature 97.6 F 04/08/25 19:50 Pulse Rate 78 04/08/25 19:50 Respiratory Rate 18 04/08/25 19:50 Blood Pressure 99/51 L 04/08/25 19:50 Pulse Oximetry 98 04/08/25 19:50 Oxygen Delivery Method Room Air 04/08/25 19:50 Course Orders Ordered: Discontinued Medications Acetaminophen (Acetaminophen 325 Mg Tablet) 650 mg PO NOW ONE Stop: 04/08/25 20:08 Last Admin: 04/08/25 20:12 Dose: 650 mg Documented By: BZ Oxycodone/Acetaminophen (Oxycodone/Acetaminophen 5/325 Tablet) 1 tab PO NOW ONE Stop: 04/08/25 22:41 Last Admin: 04/08/25 23:08 Dose: 1 tab Documented By: FAITH Oxycodone/Acetaminophen (Oxycodone/Apap 5/325 Prepack) 1 bottle MISC DIRECTED ONE Stop: 04/08/25 23:02 Last Admin: 04/08/25 23:08 Dose: 1 bottle Documented By: FAITH Vital Signs Vital signs: Vital Signs - 8 hr 04/08/25 23:25 Pulse Rate 76 Respiratory Rate 18 Blood Pressure 100/50 L Pulse Oximetry 98 Oxygen Delivery Method Room Air MDM - Fall Imaging Data Extremity x-ray #1: Radiologist's Impression: [address] [address] XRay Report Signed Patient: Anna Joseph MR#: [id number] : 1935 Acct:[id number] Age/Sex: 89 / F Date of Service: 04/08/25 Loc: ED Accession Number: [id number] Procedure: XR wrist RT min 3V Ordering Provider: Rik Mg MD PROCEDURE: XR WRIST RT MIN 3V INDICATIONS: fall TECHNIQUE: 4 views of the wrist were acquired. COMPARISON: None. FINDINGS: Bones: No fractures or dislocations. No suspicious bony lesions. Soft tissues: No suspicious soft tissue calcifications. IMPRESSION: No acute bony abnormality. Dictated by: Kirk Keys M.D. on 04/08/2025 at 21:23 Approved by: Kirk Keys M.D. on 04/08/2025 at 21:23 Extremity x-ray #2: Radiologist's Impression: [address] [address] XRay Report Signed Patient: Anna Joseph MR#: [id number] : 1935 Acct:[id number] Age/Sex: 89 / F Date of Service: 04/08/25 Loc: ED Accession Number: [id number] Procedure: XR forearm RT 2V Ordering Provider: Rik Mg MD PROCEDURE: XR FOREARM RT 2V INDICATIONS: fall TECHNIQUE: 2 views of the forearm were acquired. COMPARISON: None. FINDINGS: Bones: No fractures or dislocations. No suspicious bony lesions. Soft tissues: No suspicious soft tissue calcifications or masses. IMPRESSION: No acute bony abnormality. Dictated by: Kirk Keys M.D. on 04/08/2025 at 21:23 Approved by: Kirk Keys M.D. on 04/08/2025 at 21:23 Extremity x-ray #3: Radiologist's Impression: [address] [address] XRay Report Signed Patient: Anna Joseph MR#: [id number] : 1935 Acct:[id number] Age/Sex: 89 / F Date of Service: 04/08/25 Loc: ED Accession Number: [id number] Procedure: XR ankle RT min 3V Ordering Provider: Rik Mg MD PROCEDURE: XR ANKLE RT MIN 3V INDICATIONS: fall TECHNIQUE: 3 views of the ankle were acquired. COMPARISON: None. FINDINGS: Bones: No fractures or dislocations. Ankle mortise is normally aligned. No suspicious bony lesions. Soft tissues: No tibiotalar joint effusion. Achilles tendon appears normal. IMPRESSION: No acute bony abnormality or significant effusion. Dictated by: Kirk Keys M.D. on 04/08/2025 at 21:22 Approved by: Kirk Keys M.D. on 04/08/2025 at 21:22 [facility] Narrative Medical decision making narrative: 89-year-old female had tripping mechanical mechanism for ground level fall, takes blood thinner medications, denies striking her head. Had right wrist/forearm pain. Right knee abrasion without obvious edema or joint line tenderness or instability. Also right ankle swelling. X-rays extremity ordered at triage. X-ray right wrist and forearm negative for fracture, see radiology reports. X-ray right ankle negative for fracture/dislocation, see radiology report. Placed in right Velcro wrist splint, right came boot, advised use of wheelchair which they have access at [facility] for non weight-bearing, reassess in clinic later this week or early next week. Advised local antibiotic ointment to small abrasion right knee. Discharged home with son. Return precautions discussed. Discharge Plan Departure Patient Disposition: Home Clinical Impression: Strain of right wrist, Contusion of forearm, right, Strain of ankle, right Instructions: DI for Ankle Sprain, DI for Wrist Strain Activity Restrictions/Additional Instructions: Mechanical type fall from ground level earlier this afternoon, with pain to the right forearm, right wrist, small abrasion to the right knee, and right ankle pain and swelling. X-rays of the right forearm and right wrist were negative for fracture or dislocation changes. Right knee exam showed very small minor abrasion to the skin dressed with Band-Aid, with good extension and reassuring knee examination, no imaging indicated in that region. Right ankle x-ray series showed no obvious fracture or dislocation changes. Copies of x-ray reports were provided, with review of negative bony injury findings. It is possible to have soft tissue injuries, uneven strain and tearing of ligamentous structures. For now we will immobilize with right Velcro wrist splint, and placed right walking boot. You use a walker at [facility], but with wrist injury it is not possible to unweight your ankle right now. Use wheelchair for the next few days until recheck with your regular doctor. You have had oxycodone in the past with colon surgery, which she had tolerated, oral dose given, home pack given, prescription for short course pain control prescription sent to your requested pharmacy. Take pain medications as needed for pain control. Return earlier to this/nearest emergency department for any change worsening symptoms or concerns prior. Prescriptions: New oxycodone-acetaminophen 5-325 mg tablet 1 tab PO Q6H PRN (Reason: pain) Qty: 10 0RF No Action metoprolol succinate 50 mg tablet extended release 24 hr 50 mg PO BID Eliquis 2.5 mg tablet 2.5 mg PO BID Entresto 24-26 mg tablet 1 tab PO BID spironolactone 25 mg tablet 25 mg PO DAILY Jardiance 10 mg tablet 10 mg PO DAILY Referrals: Palak Naik MD [Primary Care Provider, Family Practice] Stand Alone Forms: Patient Portal/API
[2025-04-08 23:25] VITALS: BP 100/50; PULSE 76; RESP 18; O2SAT 98
== END 2025-04-08 23:26 | disposition home or self-care (01) ==
PROVIDERS: Emergency Provider Emergency Medicine; PCP Family Medicine
DX: S66.911A Strain of unspecified muscle, fascia and tendon at wrist and hand level, right hand, initial encounter (principal); S96.911A Strain of unspecified muscle and tendon at ankle and foot level, right foot, initial encounter; S50.11XA Contusion of right forearm, initial encounter; S80.211A Abrasion, right knee, initial encounter; W01.0XXA Fall on same level from slipping, tripping and stumbling without subsequent striking against object, initial encounter; Z79.01 Long term (current) use of anticoagulants
CPT/HCPCS: 29125; 29260; 29580; 73090; 73110; 73610; 99283